=== PATIENT | female | born 1980 | race Caucasian/White ===

== ENCOUNTER 2020-02-20 09:44 | Outpatient (REF) | payer MEDICAID, SELFPAY ==
[2020-02-20 11:32] LABS: Estimated Average Glucose 131 mg/dL; Hemoglobin A1c % 6.2 %
[2020-02-20 11:50] LABS: Alanine Aminotransferase 106 U/L (0-31); Albumin Level 3.8 g/dL (3.5-5.0); Alkaline Phosphatase 93 U/L (39-117); Anion Gap 12 (12-20); Aspartate Amino Transferase 114 U/L (5-31); Bilirubin Total 0.7 mg/dL (0.0-1.0); Blood Urea Nitrogen 13 mg/dL (9-16); Calcium 8.6 mg/dL (8.4-10.2); Carbon Dioxide 28 mmol/L (22-29); Chloride 102 mmol/L (96-108); Cholesterol 135 mg/dL; Estimated Glomerular Filt Rate > 60; Glucose Random 152 mg/dL (60-115); HDL Cholesterol 35 mg/dL; LDL Cholesterol Calculated 80 mg/dl; Potassium 4.2 mmol/l (3.3-5.1); Sodium 138 mmol/L (135-145); Total Protein 7.4 g/dL (6.5-8.0); Triglycerides 100 mg/dL
[2020-02-20 11:52] LABS: Creatinine Urine 145.59 mg/dL; Microalbum/Creatinine Ratio Ur 4.8 ug/mg cr
[2020-02-20 12:01] LABS: HBS Num1 0.96 mIU/mL (0-7.99); ~HepC Num1 0.17 S/CO (0.00-0.79); ~Hepatitis B Surface Antibody NONREACTIVE (Nonreactive); ~Hepatitis C Antibody Nonreactive (Nonreactive)
[2020-02-20 12:40] LABS: Hepatitis B Core Antibody Nonreactive (Nonreactive); Hepatitis B Surface Antigen Negative (Negative)
[2020-02-22 08:54] LABS: Hepatitis A Antibody IgM 0.24 Index (0-0.79); ~Hepatitis A Antibody IgM Nonreactive (Nonreactive)
== END 2020-02-20 09:45 | disposition home or self-care (01) ==
LOC: HO.LAB 09:44
PROVIDERS: PCP Internal Medicine; Visit Provider Internal Medicine
DX: E03.8 Other specified hypothyroidism (principal); E78.00 Pure hypercholesterolemia, unspecified; R74.01 Elevation of levels of liver transaminase levels
CPT/HCPCS: 36415; 80053; 80061; 82043; 83036; 86704; 86706; 86709; 86803; 87340

== ENCOUNTER 2020-04-13 20:55 | Emergency (ER) | payer MEDICAID, SELFPAY ==
--- NOTE | 2020-04-13 | XR_ITS ---
EXAMINATION: XR CHEST CLINICAL INFORMATION: Chest pain, lump right lateral chest COMPARISON: 04/10/2019 TECHNIQUE: 2 views of the chest were obtained. FINDINGS: No significant abnormality is noted involving the heart, lungs, mediastinum, bony thorax or soft tissues. XR/XR chest 2V IMPRESSION: Unremarkable examination.
[2020-04-13 21:04] VITALS: BP 113/62; PULSE 89; RESP 16; TEMP 36.4; O2SAT 97; BMI 34.7
--- NOTE | 2020-04-13 22:15 | ED.GENADULT ---
HPI - General Adult General Chief complaint: General Medical Stated complaint: Lump Time Seen by Provider: 04/13/20 21:59 Source: patient Mode of arrival: ambulatory Limitations: no limitations History of Present Illness HPI narrative: This is a 39-year-old female with out significant past medical history who presents with 1 week of right lower chest wall lump and pain that is exacerbated with movement but denies any trauma to the area as well as denying any fevers, chills, cough, shortness of breath, chest pain / palpitations, nausea, vomiting, diarrhea, urinary pain/ burning / frequency. However, patient states that she is currently undergoing antibiotic treatment for a UTI but denies any back pain. She does states that she was doing quite a bit of mopping at her house approximately 1 week ago and has tried [id number] Tylenol, ibuprofen, as well as a lidocaine patch without improvement of symptoms. Related Data Allergies Allergy/AdvReac Type Severity Reaction Status Date / Time acetaminophen [Percocet] Allergy Unknown hives Verified 04/13/20 21:03 oxycodone [Percocet] Allergy Unknown hives Verified 04/13/20 21:03 From PERCOCET Allergy Mild N/V Uncoded 02/02/20 15:58 BCP Allergy Unknown headache Uncoded 01/09/20 00:00 Review of Systems Review of Systems: pertinent positives and negatives as stated in HPI 10 point review of systems otherwise negative. PMFSH Past Medical History Source: nursing notes reviewed Medical History Hypertension Pre-diabetes Surgical History H/O: hysterectomy Social History Social History Smoking Status: Current every day smoker Use of substances other than those prescribed or required for medical reasons: No Advance Directives: No Advance Directives Information Provided: Yes Physical Exam Vital Signs: Vital Signs: Last Vital Signs Temp 97.6 F 04/13/20 21:04 Pulse 89 04/13/20 21:04 Resp 16 04/13/20 21:04 BP 113/62 04/13/20 21:04 Pulse Ox 97 04/13/20 21:04 Body Mass Index 34.7 VITAL SIGNS: Reviewed. GENERAL: Well developed, well nourished, in no acute distress. HEAD: Normocephalic/atraumatic, EYES: PERRLA, EOMI intact without pain, no nystagmus/pallor/icterus noted EARS: Ext canals without abnormality, TMs non-bulging and non-erythematous NOSE: Nares patent bilateral OROPHARYNX: no oral lesions noted, posterior pharynx clear and non-erythematous without noted tonsillar enlargement/erythema/exudates NECK: Supple, no adenopathy LUNGS: Normal breath sounds. No adventitious sounds or accessory muscle use. SpO2<97> CHEST WALL: no erythema, no induration, no palpable lump, no crepitus, mild tenderness to palpation over anterior mid-axillary line at#10/#11 ribs CARDIOVASCULAR: Regular rate and rhythm without noted murmurs, no JVD or lower extremity edema. ABDOMEN: Soft, non-tender, non-distended with bowel sounds. No rigidity. No guarding. No palpable masses or hernias noted MUSCULOSKELETAL: No tenderness, deformities, or effusions noted on gross inspection. EXTREMITIES: No cyanosis, clubbing or edema. SKIN: Inspection of the skin reveals no rashes, ulcerations, jaundice, pallor, or petechiae. NEUROLOGIC: Alert and oriented x 4. Strength and sensation to light touch were grossly intact x 4. Course Course Course Narrative: This is a 39-year-old female with history and clinical presentation consistent with muscle strain and doubt pneumonia, hepatobiliary, or renal etiologies. Review of chest x-ray and urinalysis are negative for any acute findings. Patient had good improvement of discomfort with the combination of analgesics and will be discharged home in stable condition. Medical Decision Making Lab Data Labs: Lab Results 04/13/20 Range/Units 22:22 Urine Color YELLOW Urine Appearance CLEAR Urine pH 5.5 (5.0-8.0) Ur Specific [place] >= 1.030 H (1.005-1.025) Urine Protein NEG (NEG-TRACE) MG/DL Urine Glucose (UA) 100 H (NEG) MG/DL Urine Ketones NEG (NEG) MG/DL Urine Blood NEG (NEG) Urine Nitrite NEG (NEG) Ur Leukocyte Esterase NEG (NEG) Discharge Plan Discharge Clinical Impression: Muscle strain of chest wall Qualifiers: Encounter type: initial encounter Qualified Code(s): S29.011A - Strain of muscle and tendon of front wall of thorax, initial encounter Patient Disposition: Home, Self-Care Instructions: Muscle Strain (ED) Additional Instructions: 1. Tylenol (if not allergic ) 1000 mg, orally, every 6 hours as needed for pain control. Do not exceed 4000 mg within 24 hours. 2. Ibuprofen 400 mg, orally with milk or food, every 6 hours as needed for pain control. 3. May try ice packs or heat in an attempt to determine which for work best for you and then continue with this for the next 2 weeks 3 to 4 times a day as possible. 4. please follow-up with your primary care provider on Thursday for further evaluation and management. The patient and/or family acknowledge understanding of results (as applicable), diagnosis, treatment plan, need for follow up, and symptoms that should prompt a return to the emergency room. Referrals: Alma Narvaez MD [Primary Care Provider] - 2 days (For re-evaluation and management of suspected right chest wall muscle strain) Print Language: Hebrew
[2020-04-13 22:30] LABS: Glucose Urine UA 100 MG/DL (NEG); Leukocyte Esterase Urine NEG (NEG); Nitrite Urine NEG (NEG); PH 5.5 (5.0-8.0); Specific Gravity - Urine >= 1.030 (1.005-1.025); Urine Blood NEG (NEG); Urine Ketones NEG (NEG); Urine Protein NEG (NEG-TRACE)
[2020-04-13 22:31] LABS: Appearance Urine CLEAR; Color Urine YELLOW
[2020-04-13] MEDS: Ketorolac Tromethamine 15 MG/ML VIAL IM (22:34)
== END 2020-04-13 23:04 | disposition home or self-care (01) ==
PROVIDERS: Emergency Provider Student in an Organized Health Care Education/Training Program; PCP Internal Medicine
DX: S29.011A Strain of muscle and tendon of front wall of thorax, initial encounter (principal); I10 Essential (primary) hypertension; X58.XXXA Exposure to other specified factors, initial encounter; Y93.9 Activity, unspecified; Y92.9 Unspecified place or not applicable; Y99.9 Unspecified external cause status; F17.200 Nicotine dependence, unspecified, uncomplicated; Z71.6 Tobacco abuse counseling; Z79.899 Other long term (current) drug therapy
CPT/HCPCS: 71046; 81003; 96372; 99283; 99284; J1885

== ENCOUNTER 2020-04-19 10:47 | Outpatient (REF) | payer MEDICAID, SELFPAY ==
[2020-04-19 11:45] LABS: MANUAL DIFF FLAG NO
[2020-04-19 11:59] LABS: Basophils Percent Auto 0.3 % (0-2); Eosinophils Percent Auto 0.5 % (0-4); Hematocrit 38.2 % (37-47); Hemoglobin 12.3 g/dl (12.0-16.0); Imm Gran Abs Auto 0.01 X10*3/uL (0.00-0.03); Imm Gran Pct Auto 0.2 % (0.0-0.4); Lymphocytes Absolute Auto 2.4 X10*3/uL (1.2-4.9); Lymphocytes Percent Auto 38.9 % (20-40); Mean Corpuscular HGB Conc 32.2 g/dl (31.0-35.0); Mean Corpuscular Hemoglobin 29.8 pg (27.0-33.0); Mean Corpuscular Volume 92.5 fL (80-98); Mean Platelet Volume 9.7 fL (9.4-12.3); Monocytes Absolute Auto 0.4 X10*3/uL (0.1-1.2); Monocytes Percent Auto 7.1 % (2-11); Neutrophils Absolute Auto 3.3 X10*3/uL (2.0-8.3); Platelet Count 250 X10*3/uL (160-400); Red Blood Count 4.13 X10*6/uL (4.20-5.50); Red Cell Distribution Width 12.6 % (11.0-16.0); White Blood Count 6.2 X10*3/uL (4.8-10.8)
[2020-04-19 14:02] LABS: Alanine Aminotransferase 123 U/L (0-31); Alkaline Phosphatase 91 U/L (39-117); Anion Gap 11 (12-20); Aspartate Amino Transferase 128 U/L (5-31); Bilirubin Total 0.6 mg/dL (0.0-1.0); Blood Urea Nitrogen 12 mg/dL (9-16); C Reactive Protein 1.85 mg/dL (< or = 0.50); Carbon Dioxide 29 mmol/L (22-29); Chloride 103 mmol/L (96-108); Estimated Glomerular Filt Rate > 60; Gamma Glutamyl Transpeptidase 61 U/L (7-33); Glucose Random 167 mg/dL (60-115); Potassium 4.3 mmol/l (3.3-5.1); Sodium 139 mmol/L (135-145); Total Protein 7.6 g/dL (6.5-8.0)
[2020-04-19 14:09] LABS: TSH reflex Free T4 2.59 mIU/mL (0.32-4.0); Vitamin D 25-OH Total 19.4 ng/mL (>30)
[2020-04-20 04:10] LABS: Estimated Average Glucose 143 mg/dL; Hemoglobin A1c % 6.6 %
== END 2020-04-19 10:48 | disposition home or self-care (01) ==
LOC: HO.LAB 10:47
PROVIDERS: PCP Internal Medicine; Visit Provider Internal Medicine Gastroenterology
DX: K76.0 Fatty (change of) liver, not elsewhere classified (principal); R10.9 Unspecified abdominal pain
CPT/HCPCS: 36415; 80053; 82306; 82977; 83036; 84443; 85025; 86140

== ENCOUNTER 2020-05-07 11:13 | Outpatient (REF) | payer MEDICAID, SELFPAY ==
--- NOTE | 2020-05-07 | US_ITS ---
EXAMINATION: US PELVIS COMPLETE US TRANSVAGINAL CLINICAL INFORMATION: Left adnexal cyst. COMPARISON: CT abdomen and pelvis 03/27/2020 from [facility] TECHNIQUE: Transabdominal and transvaginal imaging of pelvis is performed. FINDINGS: The uterus has been surgically removed. The right ovary is not seen. The left ovary measures 3.6 x 2.2 x 2.5 cm and volume 10.4 mL. There is anechoic cyst measuring 2.5 x 2.1 x 2.5 cm. The same cyst on a previous CT pelvis exam measured 3.3 cm. It has slightly improved. There are significant small and large bowel loops seen in the pelvis following hysterectomy. US/US pelvic complete IMPRESSION: Small left ovarian cyst measuring 2.[address] cm[address], it measured 3.0 cm. It has slightly decreased in size. The uterus has been removed. The right ovary is not seen.
--- NOTE | 2020-05-07 | US_ITS ---
EXAMINATION: US PELVIS COMPLETE US TRANSVAGINAL CLINICAL INFORMATION: Left adnexal cyst. COMPARISON: CT abdomen and pelvis 03/27/2020 from [facility] TECHNIQUE: Transabdominal and transvaginal imaging of pelvis is performed. FINDINGS: The uterus has been surgically removed. The right ovary is not seen. The left ovary measures 3.6 x 2.2 x 2.5 cm and volume 10.4 mL. There is anechoic cyst measuring 2.5 x 2.1 x 2.5 cm. The same cyst on a previous CT pelvis exam measured 3.3 cm. It has slightly improved. There are significant small and large bowel loops seen in the pelvis following hysterectomy. US/US transvaginal IMPRESSION: Small left ovarian cyst measuring 2.[address], it measured 3.0 cm. It has slightly decreased in size. The uterus has been removed. The right ovary is not seen.
== END 2020-05-07 11:14 | disposition home or self-care (01) ==
LOC: HO.US 11:13
PROVIDERS: PCP Internal Medicine; Visit Provider Internal Medicine
DX: N83.202 Unspecified ovarian cyst, left side (principal)
CPT/HCPCS: 76830; 76856

== ENCOUNTER → 2020-05-21 11:16 | Outpatient (BNVA) | payer MEDICAID, SELFPAY | PROVIDERS: PCP Internal Medicine; Referring Provider Internal Medicine; Visit Provider Internal Medicine Gastroenterology | DX: Z76.89 Persons encountering health services in other specified circumstances (principal) ==

== ENCOUNTER → 2020-05-29 07:49 | Outpatient (REF) | payer MEDICAID, SELFPAY ==
--- NOTE | 2020-05-29 07:52 | NM_ITS ---
EXAMINATION: BILIARY TRACT IMAGING STUDY CLINICAL INFORMATION: Right upper quadrant pain. The patient is status post cholecystectomy. COMPARISON: The previous study dated 06/24/2012 is available for comparison. Abdominal ultrasound dated 06/14/2019 is available for comparison.. TECHNIQUE: Serial gamma scintillation camera images were obtained over the abdomen for a total observation period of 60 minutes following the intravenous administration of 5.0 mCi Tc-99m Mebrofenin. FINDINGS: There is good concentration of activity in the liver by 5 minutes post injection. Biliary activity is visualized by 10 minutes. Small bowel is well visualized by 20 minutes. The gallbladder is not visualized at any time during the study. At the end of the study there is good clearance of activity from the liver and visualization of diffuse small bowel activity. There is no abnormal activity outside the visualized biliary tree or small bowel to suggest extravasation. There is no prominence of the common bile duct or intrahepatic biliary ducts. NM/NM hepatobiliary wo pharm IMPRESSION: Normal biliary scan status post cholecystectomy. The common bile duct is patent with no suggestion of common bile duct obstruction. There is no evidence of a biliary leak.
== END ==
LOC: HO.NUCMED 07:49
PROVIDERS: PCP Internal Medicine; Visit Provider Internal Medicine Gastroenterology
DX: R10.11 Right upper quadrant pain (principal); K76.0 Fatty (change of) liver, not elsewhere classified
CPT/HCPCS: 78226; A9537

== ENCOUNTER 2020-06-04 14:00 | Outpatient (REF) | payer MEDICAID, SELFPAY | END 2020-06-04 14:01 | disposition home or self-care (01) | LOC: HO.LAB 14:00 | PROVIDERS: Visit Provider Internal Medicine | DX: Z20.822 Contact with and (suspected) exposure to COVID-19 (principal) | CPT/HCPCS: 36415; C9803; U0003 ==

== ENCOUNTER 2020-06-27 09:06 | Outpatient (REF) | payer MEDICAID, SELFPAY ==
--- NOTE | ~2020-06-27 | US_ITS ---
EXAMINATION: US COMPLETE ABDOMEN WITH LIVER ELASTOGRAPHY CLINICAL INFORMATION: Fatty liver COMPARISON: Previous ultrasounds most recent May 2019 TECHNIQUE: Real-time imaging of the abdominal viscera. Noninvasive ultrasound liver fibrosis assessment is performed using Heath ElastPQ point quantification shear wave elastography (pSWE) with a 5 MHz transducer. Multiple elastography samples are obtained. FINDINGS: PANCREAS: Normal. ABDOMINAL AORTA: The proximal, middle, and distal aortic segments are normal in caliber. INFERIOR VENA CAVA: Visualized portions are normal. LIVER: Liver echotexture is increased. The liver is enlarged. The liver demonstrates normal contour and echogenicity. No focal lesion or intrahepatic biliary duct dilatation. The right lobe measures 19 cm in length. The left lobe measures 13 cm in length. Portal flow is normal/hepatopedal Shear wave liver elastography median stiffness is 1.8 m/s (reference: normal median stiffness is 1.3 m/s or less). IQR/median stiffness to assess sampling precision is 0.16 (reference: optimal IQR/median stiffness is 0.15 or less). This demonstrates a significant change from previous exam when liver stiffness measured 1.3 m/s on May 2019. GALLBLADDER: Surgically removed. COMMON BILE DUCT: Normal in caliber measuring 0.6 cm in diameter. RIGHT KIDNEY: Normal. No hydronephrosis. No renal calculi or focal parenchymal lesions. The kidney measures 10.6 cm in maximum dimension. LEFT KIDNEY: Normal. No hydronephrosis. No renal calculi or focal parenchymal lesions. The kidney measures 12 cm in maximum dimension. SPLEEN: Normal. The spleen measures 8.3 cm in maximum dimension. FREE FLUID: None. US/US abdomen comp w elastography IMPRESSION: 1. Impression: Enlarged echogenic liver. 2. Liver elastography: Elevated liver stiffness suggestive of compensated advanced chronic liver disease.
== END 2020-06-27 09:07 | disposition home or self-care (01) ==
LOC: HO.US 09:06
PROVIDERS: Visit Provider Internal Medicine Gastroenterology
DX: K76.0 Fatty (change of) liver, not elsewhere classified (principal); E13.9 Other specified diabetes mellitus without complications
CPT/HCPCS: 76705; 76981

== ENCOUNTER → 2020-08-07 12:59 | Outpatient (BNVA) | payer MEDICAID, SELFPAY | PROVIDERS: PCP Internal Medicine; Visit Provider Dietitian, Registered ==

== ENCOUNTER → 2020-08-24 09:14 | Outpatient (BNVA) | payer MEDICAID, SELFPAY | PROVIDERS: Visit Provider Internal Medicine Gastroenterology ==

== ENCOUNTER 2020-09-03 08:24 | Outpatient (REF) | payer MEDICAID, SELFPAY ==
[2020-09-03 09:37] LABS: MANUAL DIFF FLAG NO
[2020-09-03 09:43] LABS: Basophils Percent Auto 0.3 % (0-2); Eosinophils Percent Auto 0.5 % (0-4); Hematocrit 38.1 % (37-47); Hemoglobin 12.1 g/dl (12.0-16.0); Imm Gran Abs Auto 0.01 X10*3/uL (0.00-0.03); Imm Gran Pct Auto 0.2 % (0.0-0.4); Lymphocytes Absolute Auto 2.4 X10*3/uL (1.2-4.9); Lymphocytes Percent Auto 38.9 % (20-40); Mean Corpuscular HGB Conc 31.8 g/dl (31.0-35.0); Mean Corpuscular Hemoglobin 29.6 pg (27.0-33.0); Mean Corpuscular Volume 93.2 fL (80-98); Mean Platelet Volume 9.6 fL (9.4-12.3); Monocytes Absolute Auto 0.4 X10*3/uL (0.1-1.2); Monocytes Percent Auto 6.4 % (2-11); Neutrophils Absolute Auto 3.3 X10*3/uL (2.0-8.3); Neutrophils Percent Auto 53.7 % (45-73); Platelet Count 230 X10*3/uL (160-400); Red Blood Count 4.09 X10*6/uL (4.20-5.50); Red Cell Distribution Width 12.8 % (11.0-16.0); White Blood Count 6.1 X10*3/uL (4.8-10.8)
[2020-09-03 10:07] LABS: Alanine Aminotransferase 153 U/L (0-31); Albumin Level 3.9 g/dL (3.5-5.0); Alkaline Phosphatase 102 U/L (39-117); Anion Gap 14 (12-20); Aspartate Amino Transferase 126 U/L (5-31); Bilirubin Total 0.9 mg/dL (0.0-1.0); Blood Urea Nitrogen 12 mg/dL (9-16); C Reactive Protein 1.81 mg/dL (< or = 0.50); Calcium 8.8 mg/dL (8.4-10.2); Carbon Dioxide 26 mmol/L (22-29); Chloride 104 mmol/L (96-108); Cholesterol 140 mg/dL; Estimated Glomerular Filt Rate > 60; Glucose Random 203 mg/dL (60-115); HDL Cholesterol 34 mg/dL; LDL Cholesterol Calculated 89 mg/dl; Potassium 4.5 mmol/L (3.3-5.1); Sodium 139 mmol/L (135-145); Total Protein 7.5 g/dL (6.5-8.0); Triglycerides 87 mg/dL
[2020-09-03 10:08] LABS: Estimated Average Glucose 180 mg/dL; Hemoglobin A1c % 7.9 %
[2020-09-03 10:14] LABS: HBS Num1 0.54 mIU/mL (0-7.99); HBc Num1 0.11 S/CO (0.00-0.79); Hepatitis B Core Antibody Nonreactive (Nonreactive); ~Hepatitis B Surface Antibody NONREACTIVE (Nonreactive); ~Hepatitis C Antibody Nonreactive (Nonreactive)
[2020-09-03 10:16] LABS: HBsAGNum1 0.25 S/CO (0.00-0.99); Hepatitis B Surface Antigen Negative (Negative)
[2020-09-03 10:19] LABS: Gamma Glutamyl Transpeptidase 77 U/L (7-33)
[2020-09-03 10:21] LABS: Ferritin 212 ng/mL (10-250); TSH reflex Free T4 1.91 uIU/mL (0.32-4.0)
[2020-09-05 08:20] LABS: Hepatitis A Antibody IgM 0.19 Index (0-0.79); ~Hepatitis A Antibody IgM Nonreactive (Nonreactive)
== END 2020-09-03 08:25 | disposition home or self-care (01) ==
LOC: HO.LAB 08:24
PROVIDERS: Absent Provider Internal Medicine; PCP Internal Medicine; Visit Provider Internal Medicine Gastroenterology
DX: G89.0 Central pain syndrome (principal); K76.0 Fatty (change of) liver, not elsewhere classified; E13.9 Other specified diabetes mellitus without complications; E78.2 Mixed hyperlipidemia; R10.12 Left upper quadrant pain; R74.01 Elevation of levels of liver transaminase levels
CPT/HCPCS: 36415; 80053; 80061; 82728; 82977; 83036; 84443; 85025; 86140; 86704; 86706; 86709; 86803; 87340

== ENCOUNTER 2020-10-09 08:39 | Outpatient (REF) | payer MEDICAID, SELFPAY ==
[2020-10-09 10:27] LABS: Alanine Aminotransferase 128 U/L (0-31); Albumin Level 3.9 g/dL (3.5-5.0); Alkaline Phosphatase 93 U/L (39-117); Anion Gap 12 (12-20); Aspartate Amino Transferase 91 U/L (5-31); Bilirubin Total 0.9 mg/dL (0.0-1.0); Blood Urea Nitrogen 13 mg/dL (9-16); Carbon Dioxide 25 mmol/L (22-29); Chloride 103 mmol/L (96-108); Cholesterol 128 mg/dL; Estimated Glomerular Filt Rate > 60; Glucose Random 193 mg/dL (60-115); HDL Cholesterol 35 mg/dL; LDL Cholesterol Calculated 78 mg/dl; Potassium 4.3 mmol/L (3.3-5.1); Sodium 136 mmol/L (135-145); Total Protein 7.6 g/dL (6.5-8.0); Triglycerides 77 mg/dL
[2020-10-09 10:29] LABS: Estimated Average Glucose 183 mg/dL
== END 2020-10-09 08:40 | disposition home or self-care (01) ==
LOC: HO.LAB 08:39
PROVIDERS: PCP Internal Medicine; Visit Provider Internal Medicine
DX: E11.9 Type 2 diabetes mellitus without complications (principal); E78.2 Mixed hyperlipidemia; R10.12 Left upper quadrant pain; R74.01 Elevation of levels of liver transaminase levels
CPT/HCPCS: 36415; 80053; 80061; 83036

== ENCOUNTER → 2020-10-17 08:45 | Outpatient (BNVA) | payer MEDICAID, SELFPAY | PROVIDERS: PCP Internal Medicine; Visit Provider Nurse Practitioner Family ==

== ENCOUNTER 2020-10-20 07:06 | Emergency (ER) | payer MEDICAID, SELFPAY ==
--- NOTE | ~2020-10-20 | CT_ITS ---
EXAMINATION: CT CERVICAL SPINE WITHOUT CONTRAST CLINICAL INFORMATION: Pain going down the left arm. COMPARISON: None TECHNIQUE: 3 mm thin axial and reformatted 2 mm thin sagittal and coronal images of cervical spine were obtained without contrast. This CT examination was performed using dose optimization techniques as appropriate, variously including the following: *Automated exposure control *Adjustment of mA and/or kV according to patient size (this includes techniques or standardized protocols for targeted exams where dose is matched to indication/reason for exam; i.e. extremities or head) *Use of iterative reconstruction technique DLP: 485 mGy-cm FINDINGS: There is maintained cervical lordosis. The vertebral heights, alignment and disc heights are normal. There is no visible acute fracture, dislocation are subluxation seen. The craniovertebral junction and the C1-C2 alignment is normal. The C2-C3, C3-C4 and C4-C5 disc levels are unremarkable. At C5-C6 disc level with bilateral facet joint and uncovertebral hypertrophic changes resulting in mild left neural foraminal narrowing. The C6-C7 and C7-T1 disc level appears unremarkable. The prevertebral and paravertebral soft tissues are normal. CT/CT cervical spine wo con IMPRESSION: Mild left neural foraminal narrowing at C5-C6 disc level from uncovertebral and facet joint arthropathy at C5-C6 disc level. There is no visible acute fracture, dislocation or subluxation seen. No bony erosive changes seen.
--- NOTE | ~2020-10-20 | US_ITS ---
EXAMINATION: US VENOUS WITH DOPPLER UPPER EXTREMITY, LEFT CLINICAL INFORMATION: Arm pain and swelling COMPARISON: None TECHNIQUE: Ultrasound of the upper extremity is performed using compression sonography and color and pulse Doppler flow with assessment of augmentation of flow. There is also imaging and Doppler assessment of the jugular and subclavian veins. Spectral analysis with color-flow imaging is performed. FINDINGS: Respiratory variation, normal compression, and augmented flow are noted throughout the upper extremity including the axillary, brachial, cubital, and radial and ulnar veins. There is normal flow in the internal jugular and subclavian veins. There is no visible deep or superficial thrombophlebitis. If the patient's symptoms progress, a followup ultrasound in 5 -7 days might be of value to exclude proximal propagation from a nonvisualized distal arm vein. US/US venous duplex UE LT IMPRESSION: No DVT demonstrated in the left upper extremity
--- NOTE | ~2020-10-20 | XR_ITS ---
EXAMINATION: XR SHOULDER, LEFT CLINICAL INFORMATION: Pain. COMPARISON: None TECHNIQUE: AP external rotation, Grashey, scapular Y, and axillary views of the left shoulder. FINDINGS: The bones and soft tissues are normal. No fracture. Glenohumeral and acromioclavicular alignment is anatomic with normal joint space. No abnormal soft tissue calcifications. XR/XR shoulder LT min 2V IMPRESSION: Normal left shoulder.
[2020-10-20 07:19] VITALS: BP 140/83; PULSE 100; RESP 15; TEMP 36.6; O2SAT 100; BMI 40.3
--- NOTE | 2020-10-20 07:30 | ED_ITS ---
HPI - Extremity Problem General Chief complaint: Extremity Injury, Upper Stated complaint: pt states whole arm hurts after covid shot Time Seen by Provider: 10/20/20 07:17 History of Present Illness HPI Narrative: Patient is a 40-year-old female presents today with having left upper extremity pain and swelling since getting a coronavirus vaccine 3 weeks ago. No fever no chills. No shortness of breath. No chest pain. No diaphoresis. Patient complained pain is very sharp. It is worse with movement. MD Complaint: extremity pain Related Data Home Medications Medication Instructions Recorded Confirmed linaclotide 290 mcg capsule 290 mcg PO DAILY 05/21/20 08/24/20 metformin 1,000 mg tablet 1,000 mg PO DAILY 05/21/20 08/24/20 pentosan polysulfate sodium 100 mg 100 mg PO TID 05/21/20 08/24/20 capsule propranolol 120 mg capsule,24 120 mg PO DAILY 05/21/20 08/24/20 hr,extended release venlafaxine 75 mg capsule,extended 75 mg PO DAILY 05/21/20 08/24/20 release 24 hr Previous Rx's Medication Instructions Recorded lidocaine-prilocaine 2.5 %-2.5 % 1 appl TOPICAL BID 30 Days #30 g 04/19/20 topical cream famotidine 40 mg tablet 40 mg PO BEDTIME 30 Days #30 tab 06/12/20 cholecalciferol (vitamin D3) 50 2,000 unit PO DAILY 30 Days #30 cap 07/20/20 mcg (2,000 unit) capsule magnesium oxide 400 mg PO BID 30 Days #60 tab 08/24/20 docusate sodium 100 mg capsule 100 mg PO BEDTIME #30 cap 10/17/20 methylcellulose (laxative) 500 mg 500 mg PO DAILY #30 tab 10/17/20 tablet ibuprofen 400 mg PO Q6H PRN #20 tab 10/20/20 Allergies Allergy/AdvReac Type Severity Reaction Status Date / Time acetaminophen [Percocet] Allergy Unknown hives Verified 10/17/20 08:46 oxycodone [Percocet] Allergy Unknown hives Verified 10/17/20 08:46 BCP Allergy Unknown headache Uncoded 08/24/20 09:15 Review of Systems Review of Systems: Constitutional: No Weight loss, No Fever, No Chills, No Night Sweats, No Fatigue, No Malaise ENT/Mouth: No Hearing loss, No Ear Pain, No Nasal Congestion, No Sinus Pain, No Hoarseness, No sore throat, No Rhinorrhea, No Swallowing Difficulty Eyes: No Eye Pain, No Swelling, No Redness, No Foreign Body, No Discharge, No Vision Changes Cardiovascular: No Chest Pain, No SOB, No Dyspnea on Exertion, No Orthopnea, No Edema, No Palpitations Respiratory: No Cough, No Sputum, No Wheezing, No Smoke Exposure, No Dyspnea Gastrointestinal: No Nausea, No Vomiting, No Diarrhea, No Constipation, No abdominal Pain, No Hematochezia, No Melena Genitourinary: no irregular bleeding, No Dysuria, No Urinary Frequency, No Hematuria, No Urinary Incontinence, No Urgency, No Flank Pain, No Urinary Flow Changes, No Hesitancy Musculoskeletal: No joint pain, No Myalgias, No Joint Swelling Skin: No Skin Lesions, No rash Neuro: No Weakness, No Numbness, No Paresthesias, No Loss of Consciousness, No Dizziness, No Headache Psych: No Anxiety/Panic, No Depression, No SI/HI/AH/VH, No Social Issues, Heme/Lymph: No Bruising, No Bleeding,No Lymphadenopathy Endocrine: No Polyuria, No Polydipsia, No Temperature Intolerance PMFSH Past Medical History Attestation statement: The following information was validated with the patient. Medical History Diabetes 1.5, managed as type 2 GERD (gastroesophageal reflux disease) Hepatic steatosis Hypertension IBS (irritable colon syndrome) Pre-diabetes Thalamic pain syndrome Surgical History H/O: hysterectomy (~2019) History of esophagogastroduodenoscopy (EGD) (~2018) Hx of colonoscopy (~2018) Family History Family History Father Diabetes FH: stomach cancer FH: cancer FHx: hypercholesterolemia Cancer Brother FH: stomach cancer Cancer Mother FH: depression FH: diabetes mellitus FH: cancer Maternal Uncle Cancer FH: cancer Sister Cancer Paternal Grandfather Family history of colon cancer Social History Social History Household Members: Spouse Alcohol intake: current Alcohol intake frequency: does not drink Advance Directives: No Advance Directives Information Provided: No Current occupational status: unemployed Physical Exam Vital Signs: Vital Signs: Last Vital Signs Temp 98.6 F 10/20/20 09:09 Pulse 80 10/20/20 09:09 Resp 18 10/20/20 09:09 BP 140/86 H 10/20/20 09:09 Pulse Ox 98 10/20/20 09:09 Body Mass Index 40.3 Appearance: Alert. Oriented X3. No acute distress. Eyes: Pupils equal, round and reactive to light. ENT: Pharynx normal. Neck: Normal inspection. Neck supple. No lymph nodes noted. No crepitus CVS: Normal heart rate and rhythm. Pulses normal. Normal S1 and S2 Respiratory: No respiratory distress. Breath sounds normal. No Wheezing. No rales Abdomen: Soft and nontender. No rigidity. No distention. good BS x4 Skin: Skin warm and dry. Normal skin color. Normal skin turgor. Extremities: No lower extremity edema. Neurovascular intact to all extremities. No Lacerations. No Rash Neuro: Oriented X 3. No motor deficit. No sensory deficit. Moving all extermities. No slurred speech MDM - Extremity (Nontraumatic) MDM Narrative Medical decision making narrative: X-ray showed no evidence of fracture. Patient's C-spine showed no evidence of fracture malalignment. Question cervical radiculopathy causing patient's symptoms. Patient's ultrasound showed no evidence of DVT. Electrolytes unremarkable. There is no chest pain or shortness of breath. Will have patient follow-up outpatient basis with her primary physician. Motrin for pain. In stable condition. Lab Data Result diagrams: 10/20/20 07:57 10/20/20 07:57 Labs: Lab Results 10/20/20 10/20/20 10/20/20 Range/Units 07:57 07:57 07:57 WBC 6.1 (4.8-10.8) X10*3/uL RBC 3.93 L (4.20-5.50) X10*6/uL Hgb 11.8 L (12.0-16.0) g/dl Hct 36.7 L (37-47) % MCV 93.4 (80-98) fL MCH 30.0 (27.0-33.0) pg MCHC 32.2 (31.0-35.0) g/dl RDW 12.5 (11.0-16.0) % Plt Count 207 (160-400) X10*3/uL MPV 9.4 (9.4-12.3) fL Immature Gran % (Auto) 0.2 (0.0-0.4) % Neut % (Auto) 56.7 (45-73) % Lymph % (Auto) 36.0 (20-40) % [place] % (Auto) 5.9 (2-11) % Eos % (Auto) 1.0 (0-4) % Baso % (Auto) 0.2 (0-2) % Lymph # (Auto) 2.2 (1.2-4.9) X10*3/uL [place] # (Auto) 0.4 (0.1-1.2) X10*3/uL Eos # (Auto) 0.1 (0.0-0.4) X10*3/uL Baso # (Auto) 0.0 (0.0-0.2) X10*3/uL Abs Immat Gran (auto) 0.01 (0.00-0.03) X10*3/uL Absolute Neuts (auto) 3.5 (2.0-8.3) X10*3/uL Absolute Nucleated RBC 0.000 (0.0-0.012) X10*3/uL Nucleated RBC % (auto) 0.0 (0.0-0.2) /100WBC PT 13.0 (10.8-13.0) SEC INR 1.1 (0.9-1.1) Sodium 137 (135-145) mmol/L Potassium 4.3 (3.3-5.1) mmol/L Chloride 104 (96-108) mmol/L Carbon Dioxide 23 (22-29) mmol/L Anion Gap 14 (12-20) BUN 12 (9-16) mg/dL Creatinine 0.72 (0.5-1.4) mg/dL Estim Creat Clear Calc 113.6 Estimated GFR > 60 Random Glucose 210 H (60-115) mg/dL Calcium 8.9 (8.4-10.2) mg/dL Discharge Plan Discharge Clinical Impression: Cervical radiculopathy Patient Disposition: Home, Self-Care Instructions: Cervical Radiculopathy (ED) Prescriptions: New ibuprofen 400 mg tablet 400 mg PO Q6H PRN (Reason: pain) Qty: 20 RF: 0 No Action lidocaine-prilocaine 2.5-2.5 % cream 1 appl topical BID 30 Days Qty: 30 RF: 0 famotidine 40 mg tablet 40 mg PO BEDTIME 30 Days Qty: 30 RF: 4 cholecalciferol (vitamin D3) 50 mcg (2,000 unit) capsule 2,000 unit PO DAILY 30 Days Qty: 30 RF: 3 magnesium oxide 400 mg magnesium tablet 400 mg PO BID 30 Days Qty: 60 RF: 4 venlafaxine 75 mg capsule,extended release 24hr 75 mg PO DAILY RF: 0 propranolol [Inderal LA] 120 mg capsule,extended release 24 hr 120 mg PO DAILY RF: 0 Elmiron 100 mg capsule 100 mg PO TID RF: 0 Linzess 290 mcg capsule 290 mcg PO DAILY RF: 0 metformin 1,000 mg tablet 1,000 mg PO DAILY RF: 0 docusate sodium 100 mg capsule 100 mg PO BEDTIME Qty: 30 RF: 3 Citrucel 500 mg tablet 500 mg PO DAILY Qty: 30 RF: 2 Referrals: Alma Narvaez MD [Primary Care Provider] - 2 days
[2020-10-20 08:02] LABS: MANUAL DIFF FLAG NO
[2020-10-20 08:09] LABS: Basophils Percent Auto 0.2 % (0-2); Eosinophils Absolute Auto 0.1 X10*3/uL (0.0-0.4); Hematocrit 36.7 % (37-47); Hemoglobin 11.8 g/dl (12.0-16.0); Imm Gran Abs Auto 0.01 X10*3/uL (0.00-0.03); Imm Gran Pct Auto 0.2 % (0.0-0.4); Lymphocytes Absolute Auto 2.2 X10*3/uL (1.2-4.9); Mean Corpuscular HGB Conc 32.2 g/dl (31.0-35.0); Mean Corpuscular Volume 93.4 fL (80-98); Mean Platelet Volume 9.4 fL (9.4-12.3); Monocytes Absolute Auto 0.4 X10*3/uL (0.1-1.2); Monocytes Percent Auto 5.9 % (2-11); Neutrophils Absolute Auto 3.5 X10*3/uL (2.0-8.3); Neutrophils Percent Auto 56.7 % (45-73); Platelet Count 207 X10*3/uL (160-400); Red Blood Count 3.93 X10*6/uL (4.20-5.50); Red Cell Distribution Width 12.5 % (11.0-16.0); White Blood Count 6.1 X10*3/uL (4.8-10.8)
[2020-10-20 08:12] LABS: INTERNATIONAL NORM RATIO 1.1 (0.9-1.1)
[2020-10-20 08:27] LABS: Anion Gap 14 (12-20); Blood Urea Nitrogen 12 mg/dL (9-16); Calcium 8.9 mg/dL (8.4-10.2); Carbon Dioxide 23 mmol/L (22-29); Chloride 104 mmol/L (96-108); Creatinine Clr Calc Pharmacy 113.6; Estimated Glomerular Filt Rate > 60; Glucose Random 210 mg/dL (60-115); Potassium 4.3 mmol/L (3.3-5.1); Sodium 137 mmol/L (135-145)
[2020-10-20 09:09] VITALS: BP 140/86; PULSE 80; RESP 18; TEMP 37; O2SAT 98
== END 2020-10-20 09:40 | disposition home or self-care (01) ==
PROVIDERS: Emergency Provider Emergency Medicine Emergency Medical Services; PCP Internal Medicine
DX: M54.12 Radiculopathy, cervical region (principal); R10.12 Left upper quadrant pain; R60.0 Localized edema; I10 Essential (primary) hypertension; Z79.899 Other long term (current) drug therapy
CPT/HCPCS: 36415; 72125; 73030; 80048; 85025; 85610; 93971; 99283

== ENCOUNTER → 2020-10-22 09:40 | Outpatient (BNVA) | payer MEDICAID, SELFPAY | PROVIDERS: PCP Internal Medicine; Visit Provider Dietitian, Registered | DX: E13.9 Other specified diabetes mellitus without complications (principal); K76.0 Fatty (change of) liver, not elsewhere classified | CPT/HCPCS: 97803 ==

== ENCOUNTER → 2020-11-20 09:44 | Outpatient (BNVA) | payer MEDICAID, SELFPAY | PROVIDERS: Visit Provider Nurse Practitioner Family ==

== ENCOUNTER 2020-12-03 09:04 | Outpatient (REF) | payer MEDICAID, SELFPAY ==
[2020-12-03 10:22] LABS: Estimated Average Glucose 154 mg/dL
[2020-12-03 10:44] LABS: Alanine Aminotransferase 87 U/L (0-31); Alkaline Phosphatase 95 U/L (39-117); Anion Gap 12 (12-20); Aspartate Amino Transferase 60 U/L (5-31); Bilirubin Total 0.7 mg/dL (0.0-1.0); Blood Urea Nitrogen 15 mg/dL (9-16); Calcium 9.3 mg/dL (8.4-10.2); Carbon Dioxide 28 mmol/L (22-29); Chloride 102 mmol/L (96-108); Cholesterol 132 mg/dL; Estimated Glomerular Filt Rate > 60; Glucose Random 132 mg/dL (60-115); HDL Cholesterol 32 mg/dL; LDL Cholesterol Calculated 81 mg/dl; Potassium 4.4 mmol/L (3.3-5.1); Sodium 138 mmol/L (135-145); Total Protein 7.6 g/dL (6.5-8.0); Triglycerides 99 mg/dL
[2020-12-03 11:02] LABS: Creatinine Urine 123.27 mg/dL; Microalbumin Urine < 5.0 mg/L
== END 2020-12-03 09:05 | disposition home or self-care (01) ==
LOC: HO.LAB 09:04
PROVIDERS: PCP Internal Medicine; Visit Provider Internal Medicine
DX: E11.65 Type 2 diabetes mellitus with hyperglycemia (principal); M77.12 Lateral epicondylitis, left elbow; R74.01 Elevation of levels of liver transaminase levels; S46.012S Strain of muscle(s) and tendon(s) of the rotator cuff of left shoulder, sequela
CPT/HCPCS: 36415; 80053; 80061; 82043; 83036

== ENCOUNTER 2021-02-11 11:10 | Outpatient (REF) | payer MEDICAID, SELFPAY ==
[2021-02-11 12:31] LABS: Estimated Average Glucose 154 mg/dL
[2021-02-11 12:40] LABS: Alanine Aminotransferase 63 U/L (0-31); Albumin Level 3.7 g/dL (3.5-5.0); Alkaline Phosphatase 97 U/L (39-117); Anion Gap 12 (12-20); Aspartate Amino Transferase 37 U/L (5-31); Bilirubin Total 0.6 mg/dL (0.0-1.0); Blood Urea Nitrogen 9 mg/dL (9-16); Carbon Dioxide 27 mmol/L (22-29); Chloride 102 mmol/L (96-108); Estimated Glomerular Filt Rate > 60; Glucose Random 166 mg/dL (60-115); Potassium 4.3 mmol/L (3.3-5.1); Sodium 137 mmol/L (135-145)
== END 2021-02-11 11:11 | disposition home or self-care (01) ==
LOC: HO.LAB 11:10
PROVIDERS: PCP Internal Medicine; Visit Provider Internal Medicine
DX: R10.30 Lower abdominal pain, unspecified (principal); M25.522 Pain in left elbow; Z90.710 Acquired absence of both cervix and uterus
CPT/HCPCS: 36415; 80053; 83036

== ENCOUNTER 2021-02-22 13:12 | Outpatient (REF) | payer MEDICAID, SELFPAY ==
--- NOTE | ~2021-02-22 | MM_ITS ---
EXAMINATION: MM SCREENING DIGITAL BREAST TOMOSYNTHESIS, BILATERAL CLINICAL INFORMATION: Screening. Asymptomatic. The lifetime risk of breast cancer based on the Tyrer-Cuzick Model is 10%. COMPARISON: Mammography: 12/02/2019 (baseline). TECHNIQUE: Digital breast tomosynthesis is performed in both the craniocaudal and mediolateral oblique views along with computer-aided detection (CAD). Synthesized 2D images are generated from the tomosynthesis. FINDINGS: There are scattered areas of fibroglandular density (ACR BI-RADS breast composition Category b). There are no significant masses, abnormal calcifications, or other abnormalities. Breast tissue composition borders on predominantly fatty. Background stromal markings are stable. No significant changes. MM/MM tomosynthesis screening BI IMPRESSION: No mammographic evidence of malignancy. ASSESSMENT: BI-RADS 1: Negative RECOMMENDATION: Routine annual mammography screening. This patient's information was entered into a reminder system with a target due date for their next mammogram.
== END 2021-02-22 13:13 | disposition home or self-care (01) ==
LOC: HO.MAMMO 13:12
PROVIDERS: PCP Internal Medicine; Visit Provider Internal Medicine
DX: Z12.31 Encounter for screening mammogram for malignant neoplasm of breast (principal)
CPT/HCPCS: 77063; 77067

== ENCOUNTER 2021-05-05 19:42 | Emergency (ER) | payer MEDICAID, SELFPAY | END 2021-05-05 23:15 | disposition left against medical advice (07) | PROVIDERS: Emergency Provider Emergency Medicine; PCP Internal Medicine | DX: E13.9 Other specified diabetes mellitus without complications (principal) ==

== ENCOUNTER 2021-06-12 10:40 | Outpatient (REF) | payer MEDICAID, SELFPAY ==
[2021-06-12 11:28] LABS: Estimated Average Glucose 223 mg/dL; Hemoglobin A1c % 9.4 %
[2021-06-12 11:59] LABS: Alanine Aminotransferase 134 U/L (0-31); Alkaline Phosphatase 107 U/L (39-117); Anion Gap 13 (12-20); Aspartate Amino Transferase 119 U/L (5-31); Bilirubin Total 0.8 mg/dL (0.0-1.0); Blood Urea Nitrogen 11 mg/dL (9-16); Calcium 9.3 mg/dL (8.4-10.2); Carbon Dioxide 27 mmol/L (22-29); Chloride 101 mmol/L (96-108); Estimated Glomerular Filt Rate > 60; Glucose Random 237 mg/dL (60-115); Potassium 4.7 mmol/L (3.3-5.1); Sodium 136 mmol/L (135-145); Total Protein 7.9 g/dL (6.5-8.0)
== END 2021-06-12 10:41 | disposition home or self-care (01) ==
LOC: HO.LAB 10:40
PROVIDERS: PCP Internal Medicine; Visit Provider Internal Medicine
DX: E11.65 Type 2 diabetes mellitus with hyperglycemia (principal); G43.109 Migraine with aura, not intractable, without status migrainosus; I10 Essential (primary) hypertension; K76.0 Fatty (change of) liver, not elsewhere classified
CPT/HCPCS: 36415; 80053; 83036

== ENCOUNTER 2021-08-05 11:32 | Outpatient (REF) | payer MEDICAID, SELFPAY ==
[2021-08-05 14:06] LABS: Estimated Average Glucose 157 mg/dL; Hemoglobin A1c % 7.1 %
[2021-08-05 14:26] LABS: C Reactive Protein 2.01 mg/dL (< or = 0.50); Lipase 42 U/L (8-78)
[2021-08-05 14:35] LABS: Ferritin 87 ng/mL (10-250)
[2021-08-05 14:58] LABS: Folate 10.3 ng/mL (> or = 4.0); Vitamin B12 729 pg/mL (200-900)
[2021-08-06 08:55] LABS: H Pylori Breath Test Negative (Negative)
[2021-08-08 12:56] LABS: Alpha Fetoprotein 4.3 ng/mL
[2021-08-09 10:51] LABS: Smooth Muscle Antibody <20 U (<20)
[2021-08-10 12:31] LABS: Mitochondrial Antibodies NEGATIVE (NEGATIVE)
[2021-08-10 17:02] LABS: Vitamin D 25-OH, D2 <4 ng/mL; Vitamin D 25-OH, D3 30 ng/mL; Vitamin D 25-OH, Total 30 ng/mL (30-100)
[2021-08-10 18:27] LABS: FIB-ALT 91 U/L (6-29); FIB-Alpha-2-Macroglobulin 209 mg/dL (106-279); FIB-Apolipoprotein A1 122 mg/dL (101-198); FIB-GGT 47 U/L (3-55); FIB-Haptoglobin 189 mg/dL (43-212); FIB-Total Bilirubin 0.5 mg/dL (0.2-1.2); Liver Fibrosis Score 0.19; Liver Fibrosis Stage F0; Nec Inflam Act Grade A1-A2; Nec Inflam Act Score 0.49
== END 2021-08-05 11:33 | disposition home or self-care (01) ==
LOC: HO.LAB 11:32
PROVIDERS: PCP Internal Medicine; Referring Provider Internal Medicine; Visit Provider Nurse Practitioner Family
DX: K21.9 Gastro-esophageal reflux disease without esophagitis (principal); K58.9 Irritable bowel syndrome, unspecified; R19.7 Diarrhea, unspecified; E11.9 Type 2 diabetes mellitus without complications; R74.8 Abnormal levels of other serum enzymes; E55.9 Vitamin D deficiency, unspecified; R79.89 Other specified abnormal findings of blood chemistry
CPT/HCPCS: 36415; 81596; 82105; 82306; 82607; 82728; 82746; 83013; 83036; 83690; 86015; 86140; 86255; 86256; 99212

== ENCOUNTER 2021-08-13 14:27 | Outpatient (REF) | payer MEDICAID, SELFPAY ==
[2021-08-13 14:52] LABS: Carbon Monoxide Refer to POC result
[2021-08-13 15:05] LABS: Carbon Monoxide POC 0.7 %
[2021-08-13 15:14] LABS: Alanine Aminotransferase 87 U/L (0-31); Albumin Level 4.1 g/dL (3.5-5.0); Alkaline Phosphatase 107 U/L (39-117); Anion Gap 11 (12-20); Aspartate Amino Transferase 67 U/L (5-31); Bilirubin Total 0.6 mg/dL (0.0-1.0); Blood Urea Nitrogen 9 mg/dL (9-16); Calcium 9.5 mg/dL (8.4-10.2); Carbon Dioxide 28 mmol/L (22-29); Chloride 105 mmol/L (96-108); Estimated Glomerular Filt Rate > 60; Glucose Random 78 mg/dL (60-115); Potassium 4.5 mmol/L (3.3-5.1); Sodium 139 mmol/L (135-145); Total Protein 7.9 g/dL (6.5-8.0)
== END 2021-08-13 14:28 | disposition home or self-care (01) ==
LOC: HO.LAB 14:27
PROVIDERS: PCP Internal Medicine; Visit Provider Internal Medicine
DX: E11.9 Type 2 diabetes mellitus without complications (principal); R11.10 Vomiting, unspecified; R19.7 Diarrhea, unspecified; R51.9 Headache, unspecified; Z77.128 Contact with and (suspected) exposure to other hazards in the physical environment
CPT/HCPCS: 36415; 80053; 82375

== ENCOUNTER 2021-10-07 11:39 | Outpatient (REF) | payer MEDICAID, SELFPAY ==
[2021-10-07 13:34] LABS: Alanine Aminotransferase 88 U/L (0-31); Alkaline Phosphatase 111 U/L (39-117); Anion Gap 13 (12-20); Aspartate Amino Transferase 70 U/L (5-31); Bilirubin Total 0.8 mg/dL (0.0-1.0); Blood Urea Nitrogen 10 mg/dL (9-16); Calcium 9.5 mg/dL (8.4-10.2); Carbon Dioxide 27 mmol/L (22-29); Chloride 103 mmol/L (96-108); Estimated Glomerular Filt Rate > 60; Glucose Random 125 mg/dL (60-115); Potassium 4.5 mmol/L (3.3-5.1); Sodium 138 mmol/L (135-145); Total Protein 7.9 g/dL (6.5-8.0)
== END 2021-10-07 11:40 | disposition home or self-care (01) ==
LOC: HO.LAB 11:39
PROVIDERS: PCP Internal Medicine; Visit Provider Internal Medicine
DX: E11.9 Type 2 diabetes mellitus without complications (principal); R11.10 Vomiting, unspecified; R19.7 Diarrhea, unspecified; R51.9 Headache, unspecified; Z77.128 Contact with and (suspected) exposure to other hazards in the physical environment
CPT/HCPCS: 80053

== ENCOUNTER 2021-12-23 09:16 | Outpatient (REF) | payer MEDICAID, SELFPAY ==
[2021-12-26 04:22] LABS: HPV mRNA E6/E7 rflx Not Detected (Not Detected)
== END 2021-12-23 09:17 | disposition home or self-care (01) ==
LOC: HO.LAB 09:16
PROVIDERS: PCP Internal Medicine; Visit Provider Obstetrics & Gynecology
DX: Z01.419 Encounter for gynecological examination (general) (routine) without abnormal findings (principal); Z11.51 Encounter for screening for human papillomavirus (HPV); R10.2 Pelvic and perineal pain; C53.9 Malignant neoplasm of cervix uteri, unspecified
CPT/HCPCS: 87624; 88142; 99212

== ENCOUNTER 2022-01-02 09:22 | Outpatient (REF) | payer MEDICAID, SELFPAY ==
[2022-01-02 10:01] LABS: MANUAL DIFF FLAG NO
[2022-01-02 10:17] LABS: Basophils Percent Auto 0.4 % (0-2); Eosinophils Absolute Auto 0.1 X10*3/uL (0.0-0.4); Eosinophils Percent Auto 2.3 % (0-4); Hematocrit 40.1 % (37.0-47.0); Hemoglobin 12.9 g/dl (12.0-16.0); Imm Gran Abs Auto 0.01 X10*3/uL (0.00-0.03); Imm Gran Pct Auto 0.2 % (0.0-0.4); Lymphocytes Percent Auto 37.5 % (20-40); Mean Corpuscular HGB Conc 32.2 g/dl (31.0-35.0); Mean Corpuscular Hemoglobin 29.2 pg (27.0-33.0); Mean Corpuscular Volume 90.7 fL (80.0-98.0); Mean Platelet Volume 9.5 fL (9.4-12.3); Monocytes Absolute Auto 0.4 X10*3/uL (0.1-1.2); Monocytes Percent Auto 6.8 % (2-11); Neutrophils Absolute Auto 2.8 x10*3/uL (2.0-8.3); Neutrophils Percent Auto 52.8 % (45-73); Platelet Count 241 X10*3/uL (160-400); Red Blood Count 4.42 X10*6/uL (4.20-5.50); Red Cell Distribution Width 13.5 % (11.0-16.0); White Blood Count 5.3 X10*3/uL (4.8-10.8)
[2022-01-02 10:31] LABS: Estimated Average Glucose 126 mg/dL
[2022-01-02 10:41] LABS: Alanine Aminotransferase 66 U/L (0-31); Alkaline Phosphatase 107 U/L (39-117); Anion Gap 14 (12-20); Aspartate Amino Transferase 43 U/L (5-31); Bilirubin Total 0.8 mg/dL (0.0-1.0); Blood Urea Nitrogen 9 mg/dL (9-16); Calcium 9.3 mg/dL (8.4-10.2); Carbon Dioxide 28 mmol/L (22-29); Chloride 104 mmol/L (96-108); Cholesterol 144 mg/dL; Estimated Glomerular Filt Rate > 60; Glucose Random 148 mg/dL (60-115); HDL Cholesterol 33 mg/dL; LDL Cholesterol Calculated 94 mg/dl; Potassium 4.8 mmol/L (3.3-5.1); Sodium 141 mmol/L (135-145); Total Protein 7.6 g/dL (6.5-8.0); Triglycerides 88 mg/dL
[2022-01-02 11:03] LABS: Thyroid Stimulating Hormone 2.48 uIU/mL (0.32-4.0)
[2022-01-02 11:54] LABS: Creatinine Urine 160.09 mg/dL; Microalbum/Creatinine Ratio Ur 6.2 ug/mg cr
== END 2022-01-02 09:23 | disposition home or self-care (01) ==
LOC: HO.LAB 09:22
PROVIDERS: Absent Provider Internal Medicine; PCP Internal Medicine; Visit Provider Obstetrics & Gynecology
DX: E11.9 Type 2 diabetes mellitus without complications (principal); E78.2 Mixed hyperlipidemia; R10.9 Unspecified abdominal pain; R74.01 Elevation of levels of liver transaminase levels
CPT/HCPCS: 36415; 80053; 80061; 82043; 83036; 84443; 85025

== ENCOUNTER 2022-01-06 07:54 | Outpatient (REF) | payer MEDICAID, SELFPAY ==
--- NOTE | ~2022-01-06 | CT_ITS ---
EXAMINATION: CT ABDOMEN AND PELVIS WITH CONTRAST CLINICAL INFORMATION: Malignant neoplasm. Pelvic perineal pain. COMPARISON: Ultrasound abdomen 06/27/2020. TECHNIQUE: Multidetector volumetric images were obtained from the superior aspect of the liver through the pubic symphysis following administration 100 mL of Omnipaque 350 intravenous contrast. Sagittal and coronal reformatted images were obtained on the technologist's workstation. Oral contrast: No This CT examination was performed using dose optimization techniques as appropriate, variously including the following: *Automated exposure control *Adjustment of mA and/or kV according to patient size (this includes techniques or standardized protocols for targeted exams where dose is matched to indication/reason for exam; i.e. extremities or head) *Use of iterative reconstruction technique DLP: 650 mGy-cm. FINDINGS: LUNG BASES: The visualized lung bases are unremarkable. LIVER, GALLBLADDER, AND BILIARY TREE: The liver is normal in size, shape, and diffusely attenuated. No focal hepatic lesion or biliary ductal dilatation is present. The gallbladder has been surgically removed. PANCREAS: Unremarkable. SPLEEN: Unremarkable. ADRENAL GLANDS: Unremarkable. KIDNEYS AND URETERS: The kidneys are normal in size, shape, and attenuation. No hydronephrosis, hydroureter, or calculi seen. No perinephric stranding. BLADDER: Unremarkable. GASTROINTESTINAL TRACT: There is scattered stool and oral contrast seen throughout the colon without any significant distention. The small bowel loops are normal caliber. Appendix is normal caliber. No inflammatory process of free fluid seen. ABDOMINAL WALL: No significant hernia is appreciated. LYMPH NODES: There are very small left internal inguinal lymph nodes largest measuring 6 mm on axial image 70/3. There are additional smaller nodules. No abnormal lymph nodes seen in the right pelvis. VASCULAR: Unremarkable. PELVIC VISCERA: The uterus has been surgically removed. Both ovaries are small. No free fluid. OSSEOUS STRUCTURES: No lytic or sclerotic process seen. There is mild ventral spondylosis lumbar spine. CT/CT abdomen pelvis w con IMPRESSION: Likely total hysterectomy with small ovaries. 6 mm-sized left inguinal lymph nodes within normal limits. No abnormal right iliac lymph nodes seen. Mild constipation. Mild hepatic fatty infiltration without focal lesion. Fleischner guidelines were followed.
[2022-01-06] MEDS: iohexoL 350 MG/ML 100 ML INFUS..BTL IV (10:30)
[2022-01-06] MEDS: Barium Sulfate Oral (Vanilla) 450 ML ORAL.SUSP 900 ML PO (10:31)
== END 2022-01-06 07:55 | disposition home or self-care (01) ==
LOC: HO.CT 07:54
PROVIDERS: Visit Provider Obstetrics & Gynecology
DX: C53.9 Malignant neoplasm of cervix uteri, unspecified (principal); R10.2 Pelvic and perineal pain
CPT/HCPCS: 74177; Q9967

== ENCOUNTER 2022-01-28 11:52 | Outpatient (REF) | payer MEDICAID, SELFPAY ==
[2022-01-28 18:08] LABS: CT PCR NOT DETECTED (Not Detect.); NG PCR NOT DETECTED (Not Detect.)
[2022-01-29 15:51] LABS: BV Int Neg Control Negative (Negative); BV Int Pos Control Positive (Positive)
== END 2022-01-28 11:53 | disposition home or self-care (01) ==
LOC: HO.LNP 11:52
PROVIDERS: Visit Provider Obstetrics & Gynecology
DX: Z11.3 Encounter for screening for infections with a predominantly sexual mode of transmission (principal); B37.3 Candidiasis of vulva and vagina
CPT/HCPCS: 87480; 87491; 87510; 87591; 87660; 99212

== ENCOUNTER 2022-02-05 09:48 | Outpatient (REF) | payer MEDICAID, SELFPAY ==
[2022-02-06 13:44] LABS: BV Int Neg Control Negative (Negative); BV Int Pos Control Positive (Positive)
== END 2022-02-05 09:49 | disposition home or self-care (01) ==
LOC: HO.LNP 09:48
PROVIDERS: Visit Provider Obstetrics & Gynecology
DX: R10.2 Pelvic and perineal pain (principal); C53.9 Malignant neoplasm of cervix uteri, unspecified; N76.0 Acute vaginitis; B96.89 Other specified bacterial agents as the cause of diseases classified elsewhere
CPT/HCPCS: 87480; 87510; 87660; 99212

== ENCOUNTER 2022-02-24 10:50 | Outpatient (REF) | payer MEDICAID, SELFPAY ==
--- NOTE | ~2022-02-24 | MM_ITS ---
EXAMINATION: MM SCREENING DIGITAL BREAST TOMOSYNTHESIS, BILATERAL CLINICAL INFORMATION: Screening. Asymptomatic. The lifetime risk of breast cancer based on the Tyrer-Cuzick Model is 9%. COMPARISON: Mammography: 02/22/2021, 12/02/2019 TECHNIQUE: Digital breast tomosynthesis is performed in both the craniocaudal and mediolateral oblique views along with computer-aided detection (CAD). Synthesized 2D images are generated from the tomosynthesis. FINDINGS: There are scattered areas of fibroglandular density (ACR BI-RADS breast composition Category b). There are no significant masses, abnormal calcifications, or other abnormalities. Parenchymal pattern is similar to prior studies. There is no developing density or architectural abnormality. The axilla and skin contours are unremarkable. No significant changes. MM/MM tomosynthesis screening BI IMPRESSION: No mammographic evidence of malignancy. ASSESSMENT: BI-RADS 1: Negative RECOMMENDATION: Routine annual mammography screening. This patient's information was entered into a reminder system with a target due date for their next mammogram.
== END 2022-02-24 10:51 | disposition home or self-care (01) ==
LOC: HO.MAMMO 10:50
PROVIDERS: PCP Internal Medicine; Visit Provider Obstetrics & Gynecology
DX: Z12.31 Encounter for screening mammogram for malignant neoplasm of breast (principal)
CPT/HCPCS: 77063; 77067

== ENCOUNTER 2022-03-14 15:13 | Outpatient (REF) | payer MEDICAID, SELFPAY ==
[2022-03-14 16:05] LABS: Alanine Aminotransferase 28 U/L (0-31); Albumin Level 4.5 g/dL (3.5-5.0); Alkaline Phosphatase 99 U/L (39-117); Aspartate Amino Transferase 22 U/L (5-31); Bilirubin Direct 0.2 mg/dL (0.0-0.5); Bilirubin Total 0.6 mg/dL (0.0-1.0); Total Protein 8.4 g/dL (6.5-8.0)
== END 2022-03-14 15:14 | disposition home or self-care (01) ==
LOC: HO.LAB 15:13
PROVIDERS: Nurse Practitioner Family; PCP Internal Medicine; Visit Provider Obstetrics & Gynecology
DX: R10.9 Unspecified abdominal pain (principal)
CPT/HCPCS: 36415; 80076; 99212

== ENCOUNTER 2022-04-22 23:32 | Emergency (ER) | payer MEDICAID, SELFPAY ==
--- NOTE | ~2022-04-22 | CT_ITS ---
EXAMINATION: CT ABDOMEN AND PELVIS WITH CONTRAST CLINICAL INFORMATION: Diarrhea. Abdominal pain. COMPARISON: CT abdomen pelvis 01/06/2022. TECHNIQUE: Multidetector volumetric images were obtained from the superior aspect of the liver through the pubic symphysis following administration 85 mL of Omnipaque 350 intravenous contrast. Sagittal and coronal reformatted images were obtained on the technologist's workstation. Oral contrast: No This CT examination was performed using dose optimization techniques as appropriate, variously including the following: *Automated exposure control *Adjustment of mA and/or kV according to patient size (this includes techniques or standardized protocols for targeted exams where dose is matched to indication/reason for exam; i.e. extremities or head) *Use of iterative reconstruction technique DLP: 919 mGy-cm FINDINGS: LUNG BASES: The visualized lung bases are unremarkable. LIVER, GALLBLADDER, AND BILIARY TREE: The liver is normal in size, shape, and attenuation. No focal hepatic lesion or biliary ductal dilatation is present. Cholecystectomy clips noted. PANCREAS: Unremarkable. SPLEEN: Unremarkable. ADRENAL GLANDS: Unremarkable. KIDNEYS AND URETERS: Anterior rotation of the right kidney. No hydronephrosis or perinephric inflammatory changes. No suspicious renal parenchymal lesions. BLADDER: Physiologically distended. GASTROINTESTINAL TRACT: Mild scattered colonic diverticulosis. Normal appearance of the appendix. Normal terminal ileum. No intestinal dilatation or mural thickening. No free intraperitoneal fluid or gas collections. Normal appearance of the stomach. ABDOMINAL WALL: No significant hernia is appreciated. LYMPH NODES: Normal. VASCULAR: Unremarkable. PELVIC VISCERA: Uterus is absent. No adnexal lesions noted. Surgical clip is present in the right hemipelvis. OSSEOUS STRUCTURES: No suspicious skeletal lesions noted. Mild multilevel facet and anterior endplate osteophytosis of the lumbar spine and visualized thoracic spine. CT/CT abdomen pelvis w IV con IMPRESSION: 1. No acute abnormalities identified. No evidence of obstruction or constipation/obstipation. 2. Mild scattered colonic diverticulosis. No evidence of acute diverticulitis. 3. Normal appendix. 4. Status post cholecystectomy. 5. Status post hysterectomy. No adnexal lesions identified.
[2022-04-22 23:34] VITALS: BP 121/69; PULSE 76; RESP 18; TEMP 36.4; O2SAT 97; BMI 39.1
[2022-04-23 00:03] LABS: MANUAL DIFF FLAG NO
[2022-04-23 00:04] LABS: Basophils Percent Auto 0.1 % (0-2); Eosinophils Absolute Auto 0.1 X10*3/uL (0.0-0.4); Eosinophils Percent Auto 0.6 % (0-4); Hemoglobin 13.2 g/dl (12.0-16.0); Imm Gran Abs Auto 0.03 X10*3/uL (0.00-0.03); Imm Gran Pct Auto 0.3 % (0.0-0.4); Lymphocytes Percent Auto 36.1 % (20-40); Mean Corpuscular Hemoglobin 29.9 pg (27.0-33.0); Mean Corpuscular Volume 90.5 fL (80.0-98.0); Mean Platelet Volume 9.1 fL (9.4-12.3); Monocytes Percent Auto 9.1 % (2-11); Neutrophils Absolute Auto 5.9 x10*3/uL (2.0-8.3); Neutrophils Percent Auto 53.8 % (45-73); Platelet Count 304 X10*3/uL (160-400); Red Blood Count 4.42 X10*6/uL (4.20-5.50); Red Cell Distribution Width 12.4 % (11.0-16.0); White Blood Count 10.9 X10*3/uL (4.8-10.8)
[2022-04-23 00:05] LABS: Appearance Urine Clear; Color Urine Yellow; Glucose Urine UA >=1000 mg/dL (Negative); Leukocyte Esterase Urine Small (1+) (Negative); Nitrite Urine Negative (Negative); Specific Gravity - Urine >= 1.030 (1.005-1.025); UMIC TRIGGER UACC YES; Urine Blood Negative (Negative); Urine Ketones Trace mg/dL (Negative); Urine Protein Negative (Neg-Trace)
[2022-04-23 00:10] LABS: Bacteria Urine None Seen (None Seen); Hyaline Casts Urine 0-2 /LPF (0-2); UACC Culture Trigger YES
[2022-04-23 00:36] LABS: Alanine Aminotransferase 39 U/L (0-31); Albumin Level 4.1 g/dL (3.5-5.0); Alkaline Phosphatase 106 U/L (39-117); Anion Gap 13 (12-20); Aspartate Amino Transferase 23 U/L (5-31); Blood Urea Nitrogen 11 mg/dL (9-16); Calcium 9.4 mg/dL (8.4-10.2); Carbon Dioxide 26 mmol/L (22-29); Chloride 103 mmol/L (96-108); Creatinine Clr Calc Pharmacy 102.8; Estimated Glomerular Filt Rate > 60; Glucose Random 118 mg/dL (60-115); Lipase 32 U/L (8-78); Potassium 4.1 mmol/L (3.3-5.1); Sodium 138 mmol/L (135-145); Total Protein 7.7 g/dL (6.5-8.0)
--- NOTE | 2022-04-23 00:45 | ED_ITS ---
HPI - Abdominal Pain General Chief Complaint: Abdominal Pain Stated Complaint: abdominal pain Time Seen by Provider: 04/23/22 00:14 Source: patient Mode of arrival: ambulatory Limitations: no limitations History of Present Illness HPI narrative: 41-year-old female history of adenocarcinoma of cervix, diabetes, IBS, GERD presents to the emergency department complaints of nausea, vomiting, diarrhea and abdominal pain x2 weeks worsening. Patient tells me that she has had 2 episodes of vomiting today, tells me she vomits when she eats. Reports continuous nausea throughout the day. Reports she has had 4-5 episodes of completely watery, nonbloody brown diarrhea. Denies recent antibiotic use. Patient tells me that she is having diffuse abdominal pain however it is worse in the left lower quadrant and right upper quadrant. Patient tells me she is not sure what makes the pain better or worse, she is unsure if it is affected by eating. Patient denies fevers, chills, chest pain, shortness of breath, heada anibal, vision changes, dizziness, abdominal trauma, weakness, hematemesis, hematochezia. Related Data Home Medications Medication Instructions Recorded Confirmed pentosan polysulfate sodium 100 mg 100 mg PO TID 05/21/20 08/24/20 capsule (Elmiron) propranolol 120 mg capsule,24 120 mg PO DAILY 05/21/20 08/24/20 hr,extended release (Inderal LA) venlafaxine 75 mg capsule,extended 75 mg PO DAILY 05/21/20 08/24/20 release 24 hr glipizide 2.5 mg tablet, extended 2.5 mg PO DAILY 10/22/20 10/22/20 release 24 hr metformin 1,000 mg tablet 1,000 mg PO BID 10/22/20 10/22/20 Previous Rx's Medication Instructions Recorded lidocaine-prilocaine 2.5 %-2.5 % 1 appl topical BID 30 days #30 04/19/20 topical cream grams ibuprofen 400 mg tablet 400 mg PO Q6H PRN pain #20 tabs 10/20/20 cholecalciferol (vitamin D3) 50 50 mcg PO DAILY #30 caps 11/27/20 mcg (2,000 unit) capsule docusate sodium 100 mg capsule 100 mg PO BEDTIME #90 caps 08/05/21 sennosides 8.6 mg tablet (senna) 17.2 mg PO BEDTIME for 09/25/21 constipation #60 tabs clotrimazole-betamethasone 1 1 appl topical BID 5 days #45 grams 01/28/22 %-0.05 % topical cream metronidazole 500 mg tablet 500 mg PO BID 7 days #14 tabs 01/29/22 metronidazole 500 mg tablet 500 mg PO BID 7 days #14 tabs 02/06/22 terconazole 0.8 % vaginal cream 1 appful vaginal BEDTIME 3 days 02/06/22 #20 grams famotidine 40 mg tablet 40 mg PO BEDTIME #90 tabs 03/14/22 pantoprazole 40 mg tablet,delayed 40 mg PO DAILY #90 tabs 03/14/22 release polyethylene glycol 3350 17 238 g PO ONCE #238 grams 03/14/22 gram/dose oral powder (Miralax) bisacodyl 5 mg tablet,delayed 10 mg PO ONCE 1 day #2 tabs 04/02/22 release (Dulcolax (bisacodyl)) loperamide 2 mg capsule 2 mg PO Q6H PRN loose stool #20 04/23/22 caps ondansetron 4 mg disintegrating 4 mg PO Q6H PRN nausea and 04/23/22 tablet vomiting #14 tabs Allergies Allergy/AdvReac Type Severity Reaction Status Date / Time acetaminophen [Percocet] Allergy Unknown hives Verified 04/22/22 23:40 oxycodone [Percocet] Allergy Unknown hives Verified 04/22/22 23:40 BCP Allergy Unknown headache Uncoded 08/24/20 09:15 Review of Systems Review of Systems Constitutional : No Weight loss, No Fever, No Chills, No Fatigue, No Malaise ENT/Mouth : No sore throat, No Rhinorrhea Eyes: No Eye Pain, No Swelling, No Redness Cardiovascular : No Chest Pain, No SOB, No Dyspnea on Exertion, No Orthopnea, No Edema, No Palpitations Respiratory : No Cough, No Sputum, No Wheezing Gastrointestinal : + Nausea, + Vomiting, + Diarrhea, No Constipation, + abdomina l Pain, No Hematochezia, No Melena Genitourinary : No Dysuria, No Urinary Frequency, No Hematuria, Musculoskeletal : No joint pain, No Myalgias, No Joint Swelling Skin : No Skin Lesions, No rash Neuro : No Weakness, No Numbness, No Dizziness, No Headache Psych : No Anxiety/Panic, No Depression All other systems reviewed and are negative Yes all other systems are reviewed and are negative [facility] Past Medical History Attestation statement: The following information was validated with the patient. Source: old records reviewed and nursing notes reviewed Medical History 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, managed as type 2 GERD (gastroesophageal reflux disease) Hepatic steatosis Hypertension IBS (irritable colon syndrome) Pre-diabetes Thalamic pain syndrome Transaminitis Surgical History H/O: hysterectomy (~2018) History of esophagogastroduodenoscopy (EGD) (~2017) Hx of colonoscopy (~2017) Family History Family History Father Diabetes FH: stomach cancer FH: cancer FHx: hypercholesterolemia Cancer Brother FH: stomach cancer Cancer Mother FH: depression FH: diabetes mellitus FH: cancer Maternal Uncle Cancer FH: cancer Sister Cancer Paternal Grandfather Family history of colon cancer Social History Social History Household Members: Spouse Alcohol intake: current Alcohol intake frequency: does not drink Advance Directives: No Advance Directives Information Provided: No Current occupational status: unemployed Physical Exam ED Vital Signs: Vital Signs - 24 hr 04/22/22 23:34 04/23/22 01:00 Temperature 97.6 F 97.9 F Pulse Rate 76 81 Respiratory Rate 18 17 Blood Pressure 121/69 107/62 Pulse Oximetry 97 97 Oxygen Delivery Method Room Air Room Air BMI result Body Mass Index 39.1 vss Appearance: Alert.? Oriented X3.? No acute distress.? Head: Normocephalic, atraumatic, no step-offs or deformities Eyes: Pupils equal, round and reactive to light.? Neck: Normal inspection.? Neck supple.? CVS: Normal heart rate and rhythm.? Pulses normal.? Respiratory: No respiratory distress.? Breath sounds normal.? Abdomen: Soft and + diffusely tender worse in LLQ.? Skin: Skin warm and dry.? Normal skin color.? Normal skin turgor.? Extremities: No lower extremity edema.? No calf ttp. 5/5 strength to bilateral upper and lower extremities Back: No CVA tenderness bilaterally Neuro: Oriented X 3.? No motor deficit.? No sensory deficit. CN 2-12 intact Course Reevaluation(s) Reevaluation #1: Scratch CBC with slight leukocytosis 10.9 likely reactive secondary to nausea and vomiting. Chemistry with no acute electrolyte abnormalities requiring intervention. Lipase within normal limits. UA without infection. Urine negative for . CT of the abdomen pelvis pending. Sign out tonight provider Time: 01:38 Medical Decision Making Medical Decision Making [facility] Narrative: 0050 41-year-old female presenting with nausea, vomiting, diarrhea, diffuse abdominal pain however worse in the left lower quadrant. X2 weeks worsening. Physical examination with diffuse abdominal tenderness worse to the left lower quadrant. Negative Walsh sign. Likely viral versus IBS. I do not suspect acute abdomen, cholecystitis, appendicitis, pancreatitis, unlikely small or large bowel obstruction. Plan at this time labs, imaging, urine, CT of the abdomen pelvis. Will give Zofran and loperamide for symptoms. Will hydrate with IV fluids. Medications Administered Generic Name Dose Route Start Last Admin Trade Name Freq PRN Reason Stop Dose Admin Sodium Chloride 1,000 mls @ 999 mls/hr 04/23/22 01:00 04/23/22 00:59 Ns IV 04/23/22 02:00 999 mls/hr .Q1H1M AYAZ Administration Discontinued Medications Generic Name Dose Route Start Last Admin Trade Name Freq PRN Reason Stop Dose Admin Loperamide HCl 2 mg 04/23/22 00:49 04/23/22 00:59 Loperamide Hcl 2 Mg Capsule PO 04/23/22 00:50 2 mg ONCE ONE Administration Ondansetron HCl 4 mg 04/23/22 00:49 04/23/22 00:59 Ondansetron Hcl 4 Mg/2 Ml Vial IVPUSH 04/23/22 00:50 4 mg ONCE ONE Administration Critical Care Time Critical Care Time Critical Care Time: No Discharge Plan Discharge Clinical Impression: Abdominal pain, Nausea & vomiting, Diarrhea Patient Disposition: Home, Self-Care Instructions: Acute Nausea and Vomiting (ED), Acute Diarrhea (ED), Abdominal Pain (ED) Additional Instructions: Take your medications as prescribed. If you were prescribed antibiotics today, it is important that you take your medication to their entirety, do not skip any doses, do not finish them early. Follow-up with your primary care provider this week. Follow-up with gastroenterology if symptoms persist. Return to the emergency department with new or worsening symptoms. Such as fevers, chills, chest pain, shortness of breath, nausea, vomiting, dizziness, headache, vision changes, lethargy, not tolerating anything by mouth. In case of emergency call 911 Prescriptions: New ondansetron 4 mg tablet,disintegrating 4 mg PO Q6H PRN (Reason: nausea and vomiting) Qty: 14 0RF loperamide 2 mg capsule 2 mg PO Q6H PRN (Reason: loose stool) Qty: 20 0RF No Action lidocaine-prilocaine 2.5-2.5 % cream 1 appl topical BID 30 Days Qty: 30 0RF Rx Instructions: Apply lightly to right upper abdomen and back topically cholecalciferol (vitamin D3) 50 mcg (2,000 unit) capsule 50 mcg PO DAILY Qty: 30 3RF sennosides [senna] 8.6 mg tablet 17.2 mg PO BEDTIME Qty: 60 1RF metronidazole 500 mg tablet 500 mg PO BID 7 Days Qty: 14 0RF terconazole 0.8 % cream 1 appful vaginal BEDTIME 3 Days Qty: 20 0RF metronidazole 500 mg tablet 500 mg PO BID 7 Days Qty: 14 0RF bisacodyl [Dulcolax (bisacodyl)] 5 mg tablet,delayed release (DR/EC) 10 mg PO ONCE 1 Days Qty: 2 0RF Rx Instructions: take 2 tabs at noon the day before your colonoscopy ibuprofen 400 mg tablet 400 mg PO Q6H PRN (Reason: pain) Qty: 20 0RF venlafaxine 75 mg capsule,extended release 24hr 75 mg PO DAILY propranolol [Inderal LA] 120 mg capsule,extended release 24 hr 120 mg PO DAILY Elmiron 100 mg capsule 100 mg PO TID metformin 1,000 mg tablet 1,000 mg PO BID glipizide 2.5 mg tablet extended release 24hr 2.5 mg PO DAILY docusate sodium 100 mg capsule 100 mg PO BEDTIME Qty: 90 3RF clotrimazole-betamethasone 1-0.05 % cream 1 appl topical BID 5 Days Qty: 45 0RF polyethylene glycol 3350 [Miralax] 17 gram/dose powder 238 g PO ONCE Qty: 238 0RF Rx Instructions: As directed by gastroenterology department at [facility] pantoprazole 40 mg tablet,delayed release (DR/EC) 40 mg PO DAILY Qty: 90 2RF Rx Instructions: take one tablet half an hour before breakfast famotidine 40 mg tablet 40 mg PO BEDTIME Qty: 90 2RF Referrals: Alma Narvaez MD [Primary Care Provider] - 2 days [facility]Provider Group] - 1 week Stand Alone Forms: Work/School Release
[2022-04-23 00:48] LABS: UPreg QC Valid YES; Urine Pregnancy NEGATIVE (NEGATIVE)
[2022-04-23] MEDS: ondansetron HCL 4 MG/2 ML VIAL IVPUSH (00:59)
[2022-04-23] MEDS: 0.9 % Sodium Chloride 1,000 ML 999 ML IV (00:59)
[2022-04-23] MEDS: Loperamide HCl 2 MG CAPSULE PO (00:59)
[2022-04-23 01:00] VITALS: BP 107/62; PULSE 81; RESP 17; TEMP 36.6; O2SAT 97
[2022-04-23 01:50] LABS: Bilirubin Total 0.4 mg/dL (0.0-1.0)
[2022-04-23] MEDS: iohexoL 350 MG/ML 100 ML INFUS..BTL 85 ML IV (01:55)
[2022-04-23 02:19] VITALS: BP 105/60; PULSE 92; RESP 20; TEMP 36.6; O2SAT 98
== END 2022-04-23 03:08 | disposition home or self-care (01) ==
PROVIDERS: Physician Assistant; Emergency Provider Internal Medicine; PCP Internal Medicine
DX: R10.13 Epigastric pain (principal); R11.2 Nausea with vomiting, unspecified; R19.7 Diarrhea, unspecified; Z79.899 Other long term (current) drug therapy
CPT/HCPCS: 36415; 74177; 80053; 81001; 81025; 83690; 85025; 87086; 96361; 96374; 99283; 99284; J2405; Q9967

== ENCOUNTER → 2022-04-30 10:55 | Outpatient (BNVA) | payer MEDICAID, SELFPAY | PROVIDERS: PCP Internal Medicine; Visit Provider Nurse Practitioner Family | DX: K21.9 Gastro-esophageal reflux disease without esophagitis (principal); K58.1 Irritable bowel syndrome with constipation; K76.0 Fatty (change of) liver, not elsewhere classified; Z79.899 Other long term (current) drug therapy | CPT/HCPCS: 99212 ==

== ENCOUNTER 2022-05-15 11:34 | Outpatient (REF) | payer MEDICAID, SELFPAY ==
[2022-05-15 12:19] LABS: Estimated Average Glucose 128 mg/dL; Hemoglobin A1c % 6.1 %
[2022-05-15 12:45] LABS: Blood Urea Nitrogen 15 mg/dL (9-16); Estimated Glomerular Filt Rate > 60
[2022-05-15 12:47] LABS: Alanine Aminotransferase 25 U/L (0-31); Albumin Level 4.2 g/dL (3.5-5.0); Alkaline Phosphatase 100 U/L (39-117); Anion Gap 11 (12-20); Aspartate Amino Transferase 22 U/L (5-31); Bilirubin Total 0.5 mg/dL (0.0-1.0); Blood Urea Nitrogen 15 mg/dL (9-16); Calcium 9.8 mg/dL (8.4-10.2); Carbon Dioxide 30 mmol/L (22-29); Chloride 105 mmol/L (96-108); Cholesterol 168 mg/dL; Estimated Glomerular Filt Rate > 60; Glucose Random 114 mg/dL (60-115); HDL Cholesterol 43 mg/dL; LDL Cholesterol Calculated 87 mg/dl; Potassium 4.6 mmol/L (3.3-5.1); Sodium 141 mmol/L (135-145); Triglycerides 190 mg/dL
[2022-05-16 06:51] LABS: Syphilis Screen Nonreactive (Nonreactive)
[2022-05-16 07:29] LABS: HBsAGNum1 0.31 S/CO (0.00-0.99); HIV AB/AG Nonreactive (Nonreactive); HIV Num 1 0.08 S/CO (0.00-0.99); Hepatitis B Surface Antigen Negative (Negative); ~HepC Num1 0.11 S/CO (0.00-0.79); ~Hepatitis C Antibody Nonreactive (Nonreactive)
== END 2022-05-15 11:35 | disposition home or self-care (01) ==
LOC: HO.LAB 11:34
PROVIDERS: PCP Internal Medicine; Visit Provider Obstetrics & Gynecology
DX: Z01.812 Encounter for preprocedural laboratory examination (principal); Z11.4 Encounter for screening for human immunodeficiency virus [HIV]; B96.89 Other specified bacterial agents as the cause of diseases classified elsewhere; N76.0 Acute vaginitis; B37.31 Acute candidiasis of vulva and vagina; E11.9 Type 2 diabetes mellitus without complications; E78.2 Mixed hyperlipidemia; K58.9 Irritable bowel syndrome, unspecified
CPT/HCPCS: 36415; 80053; 80061; 82565; 83036; 84520; 86780; 86803; 87340; 87389

== ENCOUNTER 2022-05-16 12:56 | Outpatient (REF) | payer MEDICAID, SELFPAY ==
[2022-05-23 14:14] LABS: Pancreatic Elastase-1 >500 mcg/g
== END 2022-05-16 12:57 | disposition home or self-care (01) ==
LOC: HO.LNP 12:56
PROVIDERS: Visit Provider Nurse Practitioner Family
DX: K21.9 Gastro-esophageal reflux disease without esophagitis (principal); R10.9 Unspecified abdominal pain
CPT/HCPCS: 82656; 87338

== ENCOUNTER 2022-05-22 06:09 | Day surgery (SDC) | payer MEDICAID, SELFPAY ==
[2022-05-16 14:40] VITALS: BMI 38.1
--- NOTE | 2022-05-21 13:33 | HO.ANESPROP2 ---
Documented by User: Pat Collazo NP 05/21/22 13:35 HPI - Anesthesia Eval Consult details Narrative: 41yo F for Upper Endoscopy and Colonoscopy PMFSH Active Problems Active Problems: All Active Problems (Updated 04/24/22 @ 00:02 by Asuncion Trejo) Bacterial vaginosis (Acute) Vulvovaginitis sae albicans (Acute) Pre-procedure lab exam (Acute) Adenocarcinoma of cervix (Acute) Pelvic pain (Acute) Well woman exam (Acute) Transaminitis (Acute) Diabetes 1.5, managed as type 2 (Acute) Thalamic pain syndrome (Acute) Hepatic steatosis (Acute) IBS (irritable colon syndrome) (Acute) GERD (gastroesophageal reflux disease) (Acute) Past Medical History Medical History 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, managed as type 2 GERD (gastroesophageal reflux disease) Hepatic steatosis Hypertension IBS (irritable colon syndrome) Pre-diabetes Thalamic pain syndrome Transaminitis Family History Family History Father Diabetes FH: stomach cancer FH: cancer FHx: hypercholesterolemia Cancer Brother FH: stomach cancer Cancer Mother FH: depression FH: diabetes mellitus FH: cancer Maternal Uncle Cancer FH: cancer Sister Cancer Paternal Grandfather Family history of colon cancer Surgical History Surgical History H/O: hysterectomy (~2018) History of esophagogastroduodenoscopy (EGD) (~2017) Hx of colonoscopy (~2017) Social History Social History Household Members: Spouse Alcohol intake: current Alcohol intake frequency: does not drink Patient Tobacco Use Status: Former Tobacco user Tobacco use type: Cigarette Use of substances other than those prescribed or required for medical reasons: No Are you DNR?: No Advance Directives: No Advance Directives Information Provided: Yes Advance Directives on File: No Current occupational status: unemployed Meds Allergies Allergy/AdvReac Type Severity Reaction Status Date / Time oxycodone [Percocet] Allergy Mild hives Verified 05/22/22 06:39 Home Medications Medication Instructions Recorded Confirmed Last Taken Type pentosan polysulfate sodium 100 mg 100 mg PO TID 05/21/20 08/24/20 Unknown History capsule (Elmiron) propranolol 120 mg capsule,24 120 mg PO DAILY 05/21/20 08/24/20 Unknown History hr,extended release (Inderal LA) venlafaxine 75 mg capsule,extended 75 mg PO DAILY 05/21/20 08/24/20 Unknown History release 24 hr glipizide 2.5 mg tablet, extended 2.5 mg PO DAILY 10/22/20 10/22/20 Unknown History release 24 hr metformin 1,000 mg tablet 1,000 mg PO BID 10/22/20 10/22/20 Unknown History Exam Exam Date and Time: May 21, 2022 1333 Height,Weight and Vital Signs: Height 5 ft 2 in Weight 94.6 kg Pertinent Lab Results Pertinent Lab Results: Laboratory Tests 04/22/22 05/15/22 23:59 11:52 WBC 10.9 H Hgb 13.2 Hct 40.0 Plt Count 304 D Sodium 141 Potassium 4.6 Chloride 105 Carbon Dioxide 30 H BUN 15 Creatinine 0.77 Assessment and Plan Assessment Anesthesia Assessment: Chart Reviewed Documented by User: Meron Lozano MD 05/22/22 09:01 [facility] Active Problems Active Problems: All Active Problems (Updated 04/24/22 @ 00:02 by Asuncion Trejo) Bacterial vaginosis (Acute) Vulvovaginitis sae albicans (Acute) Pre-procedure lab exam (Acute) Adenocarcinoma of cervix (Acute) Pelvic pain (Acute) Well woman exam (Acute) Transaminitis (Acute) Diabetes 1.5, managed as type 2 (Acute) Thalamic pain syndrome (Acute) Hepatic steatosis (Acute) IBS (irritable colon syndrome) (Acute) GERD (gastroesophageal reflux disease) (Acute) Increased BMI Denies CLAUDIA Past Medical History Medical History 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, managed as type 2 GERD (gastroesophageal reflux disease) Hepatic steatosis Hypertension IBS (irritable colon syndrome) Pre-diabetes Thalamic pain syndrome Transaminitis Family History Family History Father Diabetes FH: stomach cancer FH: cancer FHx: hypercholesterolemia Cancer Brother FH: stomach cancer Cancer Mother FH: depression FH: diabetes mellitus FH: cancer Maternal Uncle Cancer FH: cancer Sister Cancer Paternal Grandfather Family history of colon cancer Family history of problems with anesthesia: No Surgical History Surgical History H/O: hysterectomy (~2018) History of esophagogastroduodenoscopy (EGD) (~2017) Hx of colonoscopy (~2018) History of Problems with Anesthesia: No Social History Social History Household Members: Spouse Alcohol intake: current Alcohol intake frequency: does not drink Patient Tobacco Use Status: Former Tobacco user Tobacco use type: Cigarette Use of substances other than those prescribed or required for medical reasons: No Are you DNR?: No Advance Directives: No Advance Directives Information Provided: Yes Advance Directives on File: No Current occupational status: unemployed Meds Allergies Allergy/AdvReac Type Severity Reaction Status Date / Time oxycodone [Percocet] Allergy Mild hives Verified 05/22/22 06:39 Home Medications Medication Instructions Recorded Confirmed Last Taken Type pentosan polysulfate sodium 100 mg 100 mg PO TID 05/21/20 08/24/20 Unknown History capsule (Elmiron) propranolol 120 mg capsule,24 120 mg PO DAILY 05/21/20 08/24/20 Unknown History hr,extended release (Inderal LA) venlafaxine 75 mg capsule,extended 75 mg PO DAILY 05/21/20 08/24/20 Unknown History release 24 hr glipizide 2.5 mg tablet, extended 2.5 mg PO DAILY 10/22/20 10/22/20 Unknown History release 24 hr metformin 1,000 mg tablet 1,000 mg PO BID 10/22/20 10/22/20 Unknown History Exam Height,Weight and Vital Signs: Height 5 ft 2 in Weight 94.6 kg Vital Signs Temp Pulse Resp BP Pulse Ox O2 Del Method 05/22/22 06:39 97.0 F 75 16 114/70 97 Room Air Pertinent Lab Results Pertinent Lab Results: Laboratory Tests 04/22/22 05/15/22 23:59 11:52 WBC 10.9 H Hgb 13.2 Hct 40.0 Plt Count 304 D Sodium 141 Potassium 4.6 Chloride 105 Carbon Dioxide 30 H BUN 15 Creatinine 0.77 Lab Results 05/22/22 Range/Units 07:03 POC Glucose 143 H (60-115) mg/dL Airway Mallampati Class: II TM Dist: >3cm Neck ROM: Full Loose/Missing/Broken Teeth: Yes (Missing bottom back left) Heart: RRR Lungs: CTAB Assessment and Plan Assessment Anesthesia Assessment: Anesthesia Plan Discussed Final Anesthetic Review Family History of Problems with Anesthesia: No History of Problems with Anesthesia: No NPO: Yes ASA Class: III Final Preanesthetic Review: No Changes in Pt Med Stat, Meds/Allgs Chart Reviewed, Consent Obtained/Reviewed and Anes Risks/Benef Reviewed Patient Risk: Intermediate Procedure Risk: Low Assessment/Block/Sedation in SS: Assess/Block/Sedation-SS Anesthetic Plan Anesthetic Plan: MAC: Disposition: Standard PACU
[2022-05-22 06:32] VITALS: BMI 38.4
[2022-05-22 06:39] VITALS: BP 114/70; PULSE 75; RESP 16; TEMP 36.1; O2SAT 97
--- NOTE | 2022-05-22 06:51 | MHC.SHP ---
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, managed as type 2 GERD (gastroesophageal reflux disease) Hepatic steatosis Hypertension IBS (irritable colon syndrome) Pre-diabetes Thalamic pain syndrome Transaminitis) History of Previous Operations: Relevant previous surgery/procedure and date(s) (H/O: hysterectomy (~2018) History of esophagogastroduodenoscopy (EGD) (~2017) Hx of colonoscopy (~2017)) Allergies: Allergies Allergy/AdvReac Type Severity Reaction Status Date / Time oxycodone [Percocet] Allergy Mild hives Verified 05/22/22 06:39 Review of Systems Sugical H&P ROS: Negative: Constitution, Cardiovascular, Respiratory, Neurological, Psychiatric, Hem-Onc, Allergic/Immunologic, Gastrointestinal, Genitourinary, Musculoskeletal, Integumentary, Endocrine and Eyes/Ears/Nose/Throat Exam Surgical H&P Exam: Normal: HEENT, Normal: Heart, Normal: Lungs, Normal: Extremities, Normal: Abdomen, Normal: Skin and Normal: Neurological Plan Diagnosis/Plan: Unchanged I have reviewed the history and physical and performed a pertinent physical examination on my patient. No changes have occurred unless specified. Time Spent With Patient Time: Total time managing care of this patient today ____ minutes.
[2022-05-22] MEDS: Lactated Ringers 1,000 ML 100 ML IVCONT (07:09)
[2022-05-22 07:10] LABS: Glucose, Whole Blood 143 mg/dL (60-115)
--- NOTE | 2022-05-22 08:26 | P.OP_ITS ---
Operative Note Operative Note Date of Service: 05/22/22 Narrative: Operative Information Procedure Description: EGD, Colonoscopy Indication: reflux, IBS symptoms Anesthesia: MAC FLEXIBLE TRANSORAL UPPER GASTROINTESTINAL ENDOSCOPY AND COLONOSCOPY PROCEDURE NOTE UPPER ENDOSCOPY Consent: Indications for the procedure and potential complications of bleeding, perforation, reaction to medications and missed diagnosis were discussed with the patient and informed consent was obtained. Instrument: Olympus GIF H 190 J mid size upper endoscope Monitoring: Vital signs and clinical assessment, continuous EKG monitoring, Pulse oximetry, Carbon Dioxide monitoring and blood pressure monitoring were done throughout the procedure. Procedure: The patient was placed in the left lateral decubitis position and pre-procedure medications were administered and a bite block was placed. The endoscope was inserted into the mouth and advanced under direct vision to the third part of duodenum. A careful inspection was made as the upper endoscope was withdrawn including a retroflexed examination of the proximal stomach; Findings and interventions are described below. Findings: Larynx:normal Esophagus: GE junction at 35 cm, diaphragm hiatus at 35 cm, mild esophagitis at GEJ, bx taken Stomach: Mild erythema with food noted. Biopsies were obtained. Grade 2 flap valve on retroflexed examination of the cardia. Duodenum: Normal bulb and descending duodenum, bx taken Intervention: Biopsies as noted above COLONOSCOPY Instrument: Olympus variable stiffness pediatric scope 190L Colonoscopy Monitoring: Vital signs and clinical assessment, continuous EKG monitoring, Pulse oximetry, Carbon Dioxide monitoring and blood pressure monitoring were done throughout the procedure. Colon withdrawal time was 10 minutes. Procedure: The patient was placed in the left lateral decubitis position and pre-procedure medications were administered. After a digital rectal examination of the ano-rectum, the video colonoscope was inserted into the rectum and advanced through the colon to the cecum/TI. The colonoscope was slowly withdrawn in a retrograde panoramic fashion and the colon mucosa was carefully examined including a retroflexed view of the rectum. Findings and interventions are described below. Procedure Difficulty: moderate Findings: Terminal Ileum-not intubated Cecum:normal Ascending Colon: normal Transverse Colon -normal Descending Colon: few diverticula seen Sigmoid Colon: normal Rectum: Retroflexion with small internal hemorrhoids, grade I Anorectum - normal Colon preparation: Clinton Bowel Preparation Scale Right colon; 1 Transverse colon: 2 Left colon; 1 (0 = Unprepared colon segment with mucosa not seen due to solid stool that cannot be cleared. 1 = Portion of mucosa of the colon segment seen, but other areas of the colon segment not well seen due to staining, residual stool and/or opaque liquid. 2 = Minor amount of residual staining, small fragments of stool and/or opaque liquid, but mucosa of colon segment seen well. 3 = Entire mucosa of colon segment seen well with no residual staining, small fragments of stool or opaque liquid) Impression and Post Procedure Diagnosis: Endoscopy Findings: esophagitis gastritis retained food, may have gastroparesis Colonoscopy Findings: internal hemorrhoids diverticular disease Plan: Await Pathology results Repeat Colonoscopy in 6 months-1 year or earlier if clinically indicated, next time consider 2 d clears High fiber diet leaflet avoid straining at stool, epsom salts and sitz bath, anusol supps or cream consider gastric emptying study Above findings were reviewed with the patient and relevant handouts were provided if indicated.
[2022-05-22 08:32] VITALS: BP 92/49; PULSE 82; RESP 24; TEMP 36.1; O2SAT 99
[2022-05-22 08:47] VITALS: BP 100/60; PULSE 77; RESP 20; O2SAT 99
[2022-05-22 09:02] VITALS: BP 116/71; PULSE 86; RESP 20; TEMP 36.3; O2SAT 96
== END 2022-05-22 09:55 | disposition home or self-care (01) ==
PROVIDERS: PCP Internal Medicine; Visit Provider Internal Medicine Gastroenterology
PROC: (CPT 45378; principal; 2022-05-22 07:30)
DX: K58.1 Irritable bowel syndrome with constipation (principal); K57.30 Diverticulosis of large intestine without perforation or abscess without bleeding; K64.0 First degree hemorrhoids; R74.01 Elevation of levels of liver transaminase levels; K76.0 Fatty (change of) liver, not elsewhere classified; K21.9 Gastro-esophageal reflux disease without esophagitis; K29.50 Unspecified chronic gastritis without bleeding; K20.80 Other esophagitis without bleeding; K44.9 Diaphragmatic hernia without obstruction or gangrene; I10 Essential (primary) hypertension; E13.9 Other specified diabetes mellitus without complications; G89.0 Central pain syndrome; Z79.84 Long term (current) use of oral hypoglycemic drugs; Z79.899 Other long term (current) drug therapy; Z88.8 Allergy status to other drugs, medicaments and biological substances; Z85.41 Personal history of malignant neoplasm of cervix uteri; Z90.710 Acquired absence of both cervix and uterus; Z87.891 Personal history of nicotine dependence
CPT/HCPCS: 45378; 43239; 82947; 88305; 88342; J2765

== ENCOUNTER → 2022-06-04 10:01 | Outpatient (BNVA) | payer MEDICAID, SELFPAY | PROVIDERS: PCP Internal Medicine; Referring Provider Internal Medicine; Visit Provider Nurse Practitioner Family | DX: K29.70 Gastritis, unspecified, without bleeding (principal); K21.00 Gastro-esophageal reflux disease with esophagitis, without bleeding; K64.8 Other hemorrhoids; K57.30 Diverticulosis of large intestine without perforation or abscess without bleeding; K58.1 Irritable bowel syndrome with constipation; K59.04 Chronic idiopathic constipation; K76.0 Fatty (change of) liver, not elsewhere classified; Z98.890 Other specified postprocedural states | CPT/HCPCS: 99212 ==

== ENCOUNTER → 2022-06-13 11:16 | Outpatient (BNVA) | payer MEDICAID, SELFPAY | PROVIDERS: PCP Internal Medicine; Visit Provider Nurse Practitioner Family | DX: K58.2 Mixed irritable bowel syndrome (principal); K21.00 Gastro-esophageal reflux disease with esophagitis, without bleeding; K76.0 Fatty (change of) liver, not elsewhere classified; R74.01 Elevation of levels of liver transaminase levels | CPT/HCPCS: 99212 ==

== ENCOUNTER → 2022-08-18 12:10 | Outpatient (BNVA) | payer MEDICAID, SELFPAY | PROVIDERS: PCP Internal Medicine; Visit Provider Nurse Practitioner Family | DX: K58.2 Mixed irritable bowel syndrome (principal); K59.1 Functional diarrhea; K21.00 Gastro-esophageal reflux disease with esophagitis, without bleeding; R74.01 Elevation of levels of liver transaminase levels | CPT/HCPCS: 99212 ==

== ENCOUNTER → 2022-10-27 11:07 | Outpatient (BNVA) | payer MEDICAID, SELFPAY | PROVIDERS: PCP Internal Medicine; Referring Provider Internal Medicine; Visit Provider Nurse Practitioner Family | DX: K21.00 Gastro-esophageal reflux disease with esophagitis, without bleeding (principal); K42.9 Umbilical hernia without obstruction or gangrene; R10.13 Epigastric pain; R13.19 Other dysphagia; R74.01 Elevation of levels of liver transaminase levels | CPT/HCPCS: 99212 ==

== ENCOUNTER → 2022-11-19 07:43 | Outpatient (REF) | payer MEDICAID, SELFPAY | LOC: HO.NUCMED 07:43 | PROVIDERS: Visit Provider Nurse Practitioner Family | DX: K21.9 Gastro-esophageal reflux disease without esophagitis (principal); R10.13 Epigastric pain | CPT/HCPCS: 78264; A9541 ==

== ENCOUNTER 2022-12-03 10:08 | Outpatient (AMB) | payer MEDICAID, SELFPAY ==
[2022-12-03 10:19] VITALS: BP 113/68; PULSE 86; BMI 37.1
--- NOTE | 2022-12-03 10:19 | MHC.OFFVIS ---
Intake Vital Signs 12/03/22 10:19 Height 5 ft 2 in Weight 203 lb BMI 37.1 BP 113/68 Blood Pressure Location Rt brachial Position Sitting Pulse 86 Intake Visit Reasons: umbilical hernia Intake Note: This patient presents for an assessment for an umbilical hernia. Patient c/o; umbilical region, discomfort, constipation and diarrhea. Instrument And Control Service Person Required: No Accompanied by: Self / Same As Patient Allergies oxycodone [Percocet] Allergy (Mild, Verified 12/03/22 10:27) hives Medication List - Last Reconciled 12/03/22 by Nicolas Hector MD bisacodyl (Dulcolax (bisacodyl)) 10 mg (2 x 5 mg) PO BEDTIME cholecalciferol (vitamin D3) 50 mcg PO DAILY cholestyramine-aspartame 4 gram (Cholestyramine Light) 4 grams PO QIDACHS clotrimazole-betamethasone 1-0.05 % 1 appl topical BID 5 days docusate sodium 100 mg PO BEDTIME esomeprazole magnesium (Nexium) 40 mg PO DAILY glipizide ER 2.5 mg PO DAILY lidocaine-prilocaine 2.5-2.5 % 1 appl topical BID 30 days loperamide 2 mg PO Q6H PRN metformin 1,000 mg PO BID methylcellulose (laxative) (Citrucel) 500 mg PO DAILY ondansetron 4 mg PO Q6H PRN pentosan polysulfate sodium (Elmiron) 100 mg PO TID propranolol ER (Inderal LA) 120 mg PO DAILY sucralfate 1 g PO BEDTIME venlafaxine ER 75 mg PO DAILY HPI umbilical hernia HPI Details 42-year-old female referred for an umbilical hernia. She has noticed this lump on her umbilicus for about 6 months. She feels that this has been creasing in size. She describes worsening discomfort. She has had multiple abdominal surgeries in the past. She had a laparoscopic cholecystectomy in 1997. She had hysterectomy about 6 years ago for uterine cancer. She also had bladder surgery what she describes as stress incontinence about 3 months ago. 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, managed as type 2 GERD (gastroesophageal reflux disease) Hepatic steatosis Hypertension IBS (irritable colon syndrome) Pre-diabetes Thalamic pain syndrome Transaminitis Umbilical hernia Surgical History H/O: hysterectomy (~2019) History of esophagogastroduodenoscopy (EGD) (~2018) Hx of colonoscopy (~2018) Family History Father Diabetes FH: stomach cancer FH: cancer FHx: hypercholesterolemia Cancer Brother FH: stomach cancer Cancer Mother FH: depression FH: diabetes mellitus FH: cancer Maternal Uncle Cancer FH: cancer Sister Cancer Paternal Grandfather Family history of colon cancer Social History Household Members: Spouse Alcohol intake: current Alcohol intake frequency: does not drink Patient Tobacco Use Status: Former Tobacco user Tobacco use type: Cigarette Current occupational status: unemployed Female Reproductive History Menstrual Age of Menarche: 11 Review of Systems Const Denies chills and Denies fever(s) Card Denies chest pain, Denies dyspnea and Denies dyspnea on exertion Resp Denies cough, Denies dyspnea and Denies dyspnea on exertion GI Denies hematochezia and Denies change in bowel habits Denies hematuria Musc Denies back pain and Denies limited range of motion Neuro Denies focal weakness and Denies convulsions Psych Denies depression and Denies mood swings Physical Exam Vital Signs: Last Vital Signs Pulse 86 12/03/22 10:19 BP 113/68 12/03/22 10:19 BMI result Body Mass Index 37.1 Const General: comfortable and no acute distress Orientation/consciousness: patient oriented x3 Neck Neck: Yes no lymphadenopathy Resp Auscultation: clear to auscultation bilaterally Cardio Rhythm: regular rhythm GI Other: Umbilical hernia, about 2.5 cm, partially reducible, mildly tender Palpation (GI): Soft to palpation, nontender and no guarding Neuro General: patient oriented x3 Assessment & Plan Assessment & Plan (1) Umbilical hernia: Code(s): K42.9 - Umbilical hernia without obstruction or gangrene Plan: She has an umbilical hernia as described above. She wants this repaired. I explained to her the technique of repair with possible mesh placement. I reviewed the risks including but not limited to bleeding, infections, bowel injury, poor healing, inherent risks of anesthesia, as well as the benefits and alternatives. She understands and wants to proceed. I also explained to her what to expect postoperatively. Coding Level of Care Code New Pt Level 3 (92884) Diagnoses Umbilical hernia K42.9
== END 2022-12-03 10:51 | disposition home or self-care (01) ==
PROVIDERS: PCP Internal Medicine; Visit Provider Surgery
DX: K42.9 Umbilical hernia without obstruction or gangrene (principal)
CPT/HCPCS: 99203

== ENCOUNTER → 2022-12-03 10:08 | Outpatient (BNVA) | payer MEDICAID, SELFPAY | PROVIDERS: PCP Internal Medicine; Visit Provider Surgery | DX: K42.9 Umbilical hernia without obstruction or gangrene (principal) | CPT/HCPCS: 99202 ==

== ENCOUNTER 2022-12-15 10:43 | Emergency (ER) | payer MEDICAID, SELFPAY ==
[2022-12-15 10:53] VITALS: BP 106/69; PULSE 76; RESP 20; TEMP 35.6; O2SAT 100; BMI 37.7
== END 2022-12-15 16:48 | disposition left against medical advice (07) ==
PROVIDERS: Emergency Provider Emergency Medicine; PCP Internal Medicine
DX: M54.42 Lumbago with sciatica, left side (principal); M54.41 Lumbago with sciatica, right side
CPT/HCPCS: 99281

== ENCOUNTER 2023-01-07 10:06 | Outpatient (REF) | payer MEDICAID, SELFPAY ==
[2023-01-07 10:17] LABS: MANUAL DIFF FLAG NO
[2023-01-07 10:40] LABS: Basophils Percent Auto 0.3 % (0-2); Eosinophils Absolute Auto 0.1 X10*3/uL (0.0-0.4); Hematocrit 38.3 % (37.0-47.0); Hemoglobin 12.5 g/dl (12.0-16.0); Imm Gran Abs Auto 0.02 X10*3/uL (0.00-0.03); Imm Gran Pct Auto 0.3 % (0.0-0.4); Lymphocytes Absolute Auto 2.6 X10*3/uL (1.2-4.9); Lymphocytes Percent Auto 37.2 % (20-40); Mean Corpuscular HGB Conc 32.6 g/dl (31.0-35.0); Mean Corpuscular Hemoglobin 29.6 pg (27.0-33.0); Mean Corpuscular Volume 90.5 fL (80.0-98.0); Mean Platelet Volume 9.4 fL (9.4-12.3); Monocytes Absolute Auto 0.4 X10*3/uL (0.1-1.2); Monocytes Percent Auto 5.8 % (2-11); Neutrophils Absolute Auto 3.8 x10*3/uL (2.0-8.3); Neutrophils Percent Auto 55.4 % (45-73); Platelet Count 242 X10*3/uL (160-400); Red Blood Count 4.23 X10*6/uL (4.20-5.50); Red Cell Distribution Width 12.3 % (11.0-16.0); White Blood Count 6.9 X10*3/uL (4.8-10.8)
[2023-01-07 11:25] LABS: Alanine Aminotransferase 42 U/L (0-31); Alkaline Phosphatase 87 U/L (39-117); Anion Gap 13 (12-20); Aspartate Amino Transferase 25 U/L (5-31); Bilirubin Total 0.6 mg/dL (0.0-1.0); Blood Urea Nitrogen 10 mg/dL (9-16); Calcium 9.5 mg/dL (8.4-10.2); Carbon Dioxide 26 mmol/L (22-29); Chloride 105 mmol/L (96-108); Cholesterol 137 mg/dL (<200); Estimated Glomerular Filt Rate > 60; Glucose Random 174 mg/dL (60-115); HDL Cholesterol 38 mg/dL (>40); LDL Cholesterol Calculated 84 mg/dL (<100); Potassium 4.1 mmol/L (3.3-5.1); Sodium 140 mmol/L (135-145); Total Protein 7.9 g/dL (6.5-8.0); Triglycerides 76 mg/dL (<150)
[2023-01-07 11:42] LABS: Thyroid Stimulating Hormone 2.05 uIU/mL (0.32-4.0)
== END 2023-01-07 10:07 | disposition home or self-care (01) ==
LOC: HO.LAB 10:06
PROVIDERS: PCP Internal Medicine; Visit Provider Internal Medicine
DX: E11.9 Type 2 diabetes mellitus without complications (principal); E78.00 Pure hypercholesterolemia, unspecified; I10 Essential (primary) hypertension; L30.4 Erythema intertrigo
CPT/HCPCS: 36415; 80053; 80061; 84443; 85025

== ENCOUNTER 2023-01-08 15:08 | Outpatient (REF) | payer MEDICAID, SELFPAY ==
[2023-01-08 16:23] LABS: Creatinine Urine 90.22 mg/dL; Microalbumin Urine < 5.0 mg/L
== END 2023-01-08 15:09 | disposition home or self-care (01) ==
LOC: HO.LNP 15:08
PROVIDERS: Visit Provider Internal Medicine
DX: E11.9 Type 2 diabetes mellitus without complications (principal); E78.00 Pure hypercholesterolemia, unspecified; I10 Essential (primary) hypertension; L30.4 Erythema intertrigo
CPT/HCPCS: 82043

== ENCOUNTER 2023-02-03 10:30 | Emergency (ER) | payer MEDICAID, SELFPAY ==
--- NOTE | ~2023-02-03 | XR_ITS ---
EXAMINATION: XR ABDOMEN KUB CLINICAL INDICATION: Pain COMPARISON: None available. TECHNIQUE: AP view of the abdomen. FINDINGS: The bowel gas pattern is normal with no evidence of ileus or obstruction. There is retained stool within the right, transverse and descending colon. There are surgical clips in the right upper quadrant and right pelvis. No unusual soft tissue calcifications are noted. The bones are unremarkable. XR/XR KUB IMPRESSION: Nonspecific bowel gas pattern. Retained stool.
--- NOTE | ~2023-02-03 | US_ITS ---
EXAMINATION: US PELVIS CLINICAL INFORMATION: Pain. Evaluate ovaries. History of partial hysterectomy. COMPARISON: Previous CT of the abdomen and pelvis most recent April 2022 and pelvic ultrasound April 2020 TECHNIQUE: Transabdominal and transvaginal pelvic ultrasound. Transvaginal exam was performed for better visualization of the ovaries. FINDINGS: Patient appears post complete hysterectomy. Vaginal cuff is normal. The ovaries are not seen. No adnexal mass. No fluid in the pelvis. US/US pelvic and transvaginal IMPRESSION: Limited exam. Post hysterectomy. Ovaries not seen.
[2023-02-03 10:46] VITALS: BP 139/64; PULSE 97; RESP 14; TEMP 36.9; O2SAT 98; BMI 36.7
[2023-02-03 11:02] LABS: MANUAL DIFF FLAG NO
[2023-02-03 11:07] LABS: Basophils Percent Auto 0.5 % (0-2); Eosinophils Percent Auto 0.3 % (0-4); Hematocrit 36.5 % (37.0-47.0); Hemoglobin 11.9 g/dl (12.0-16.0); Imm Gran Abs Auto 0.01 X10*3/uL (0.00-0.03); Imm Gran Pct Auto 0.2 % (0.0-0.4); Lymphocytes Absolute Auto 2.2 X10*3/uL (1.2-4.9); Lymphocytes Percent Auto 37.3 % (20-40); Mean Corpuscular HGB Conc 32.6 g/dl (31.0-35.0); Mean Corpuscular Hemoglobin 29.9 pg (27.0-33.0); Mean Corpuscular Volume 91.7 fL (80.0-98.0); Mean Platelet Volume 9.5 fL (9.4-12.3); Monocytes Absolute Auto 0.4 X10*3/uL (0.1-1.2); Neutrophils Absolute Auto 3.3 x10*3/uL (2.0-8.3); Neutrophils Percent Auto 55.7 % (45-73); Platelet Count 223 X10*3/uL (160-400); Red Blood Count 3.98 X10*6/uL (4.20-5.50); Red Cell Distribution Width 12.5 % (11.0-16.0); White Blood Count 5.9 X10*3/uL (4.8-10.8)
[2023-02-03 11:17] LABS: Anion Gap 10 (12-20); Blood Urea Nitrogen 12 mg/dL (9-16); Calcium 9.3 mg/dL (8.4-10.2); Carbon Dioxide 25 mmol/L (22-29); Chloride 107 mmol/L (96-108); Creatinine Clr Calc Pharmacy 105.7; Estimated Glomerular Filt Rate > 60; Glucose Random 154 mg/dL (60-115); Potassium 3.9 mmol/L (3.3-5.1); Sodium 138 mmol/L (135-145)
[2023-02-03 13:59] LABS: Appearance Urine Clear; Color Urine Yellow; Glucose Urine UA Negative (Negative); Leukocyte Esterase Urine Negative (Negative); Nitrite Urine Negative (Negative); PH 5.5 (5.0-9.0); Specific Gravity - Urine >= 1.030 (1.005-1.025); Urine Blood Negative (Negative); Urine Ketones 15 mg/dL (Negative); Urine Protein Negative (Neg-Trace)
--- NOTE | 2023-02-03 16:11 | PC.NURSE ---
Assumed care of pt at 1605. A & O x 3. respiration even and unlabored. c/o pain in lower abdomen, LLQ is worse than RLQ. Reports last BM yesterday, formed. Reported vaginal discharge, yellow, clumpy, and foul. Reported hx of recurrent yeast infections last year. Significant other at bedside.
[2023-02-03 16:17] VITALS: BP 106/52; PULSE 109; RESP 18; TEMP 36.7; O2SAT 98
--- NOTE | 2023-02-03 16:20 | ED.GENADULT ---
HPI - General Adult General Chief complaint: Abdominal Pain Stated complaint: Low Abdominal Pain Time Seen by Provider: 02/03/23 16:07 Source: patient, RN notes reviewed and old records reviewed Mode of arrival: ambulatory Limitations: no limitations History of Present Illness HPI narrative: 42-year-old female presents for evaluation of lower abdominal Patient reports lower abdominal pain for the last week or so She reports ?it feels like it is my ovaries. ? She reports a history of partial hysterectomy 5 years ago Denies any history of similar episodes of pain in the past Denies any concern for sexually transmitted infections. She reports that she has some pain with urination Her last bowel movement was yesterday and was ?normal for me. She rates her pain as 9/10 Related Data Home Medications Medication Instructions Recorded Confirmed pentosan polysulfate sodium 100 mg 100 mg PO TID 05/21/20 12/18/22 capsule (Elmiron) propranolol 120 mg capsule,24 120 mg PO DAILY 05/21/20 12/18/22 hr,extended release (Inderal LA) venlafaxine 75 mg capsule,extended 75 mg PO DAILY 05/21/20 12/18/22 release 24 hr glipizide 2.5 mg tablet, extended 2.5 mg PO DAILY 10/22/20 12/18/22 release 24 hr metformin 1,000 mg tablet 1,000 mg PO BID 10/22/20 12/18/22 Previous Rx's Medication Instructions Recorded lidocaine-prilocaine 2.5 %-2.5 % 1 appl topical BID 30 days #30 04/19/20 topical cream grams cholecalciferol (vitamin D3) 50 50 mcg PO DAILY #30 caps 11/27/20 mcg (2,000 unit) capsule docusate sodium 100 mg capsule 100 mg PO BEDTIME #90 caps 08/05/21 clotrimazole-betamethasone 1 1 appl topical BID 5 days #45 grams 01/28/22 %-0.05 % topical cream ondansetron 4 mg disintegrating 4 mg PO Q6H PRN nausea and 04/23/22 tablet vomiting #14 tabs methylcellulose (laxative) 500 mg 500 mg PO DAILY #30 tabs 06/04/22 tablet (Citrucel) cholestyramine-aspartame 4 gram 4 g PO QIDACHS #239.4 grams 06/13/22 oral powder (Cholestyramine Light) bisacodyl 5 mg tablet,delayed 10 mg (2 x 5 mg) PO BEDTIME #180 10/27/22 release (Dulcolax (bisacodyl)) tabs esomeprazole magnesium 40 mg 40 mg PO DAILY #30 caps 10/27/22 capsule,delayed release (Nexium) loperamide 2 mg capsule 2 mg PO Q6H PRN loose stool #20 10/27/22 caps sucralfate 1 gram tablet 1 g PO BEDTIME #30 tabs 10/27/22 magnesium citrate 300 ml PO DAILY PRN constipation 02/03/23 #296 mL polyethylene glycol 3350 17 17 g PO DAILY PRN constipation 02/03/23 gram/dose oral powder (Miralax) #238 grams Allergies Allergy/AdvReac Type Severity Reaction Status Date / Time oxycodone [Percocet] Allergy Mild hives Verified 12/03/22 10:27 Review of Systems Constitutional: Constitutional: Denies chills and Denies fever(s) Cardiovascular: Cardiovascular: Denies chest pain and Denies dyspnea Respiratory: Respiratory: Denies dyspnea Gastrointestinal: Gastrointestinal: Reports abdominal pain, Denies change in stool character, Denies coffee ground emesis, Denies nausea and Denies vomiting Genitourinary: Genitourinary: Reports urinary frequency, Reports difficulty voiding, Reports pelvic pain and Denies flank pain Musculoskeletal: Musculoskeletal: Denies back pain [facility] Past Medical History Medical History (Updated 02/03/23 @ 18:21 by Harvey Domingo) Umbilical hernia Adenocarcinoma of cervix Transaminitis Diabetes 1.5, 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 Hepatic steatosis IBS (irritable colon syndrome) GERD (gastroesophageal reflux disease) Hypertension Pre-diabetes Surgical History (Updated 12/18/22 @ 13:22 by Dana Alegre RN) Hx of colonoscopy (~2018) History of esophagogastroduodenoscopy (EGD) (~2018) H/O: hysterectomy (~2019) Family History Family History Father Diabetes FH: stomach cancer FH: cancer FHx: hypercholesterolemia Cancer Brother FH: stomach cancer Cancer Mother FH: depression FH: diabetes mellitus FH: cancer Maternal Uncle Cancer FH: cancer Sister Cancer Paternal Grandfather Family history of colon cancer Social History Social History Household Members: Spouse Alcohol intake: current Alcohol intake frequency: does not drink Patient Tobacco Use Status: Former Tobacco user Tobacco use type: Cigarette Use of substances other than those prescribed or required for medical reasons: No Advance Directives: No Current occupational status: unemployed Physical Exam ED Vital Signs: Vital Signs - 24 hr 02/03/23 10:46 02/03/23 16:17 Temperature 98.4 F 98.0 F Pulse Rate 97 109 H Respiratory Rate 14 18 Blood Pressure 139/64 106/52 L Pulse Oximetry 98 98 Oxygen Delivery Method Room Air Room Air BMI result Body Mass Index 36.7 Const General: healthy appearing, comfortable, no acute distress, alert and awake Nutritional Appearance: well nourished Orientation/consciousness: patient oriented x3 HENMT Head: Yes normocephalic and Yes atraumatic Eyes Eyelids: Yes eyelids normal Conjunctivae: conjunctivae normal Sclerae: sclerae normal Corneas: corneas normal Pupils: Equal, round and reactive pupils present EOM: EOMs intact bilaterally Neck Neck: Yes full ROM Resp Effort & Inspection: normal respiratory effort, able to speak in complete sentences and not labored GI Inspection: No distended Palpation (GI): Soft to palpation, not firm, Tenderness to palpation present (GI) in the LLQ, in the RLQ and suprapubicly, Guarding due to palpation present (GI) in the RLQ and not rigid Auscultation: normoactive bowel sounds Skin General skin exam: elasticity normal Neuro General: patient oriented x3 Cranial nerves: Yes Equal, round and reactive pupils present and Yes Bilaterally intact EOM present Cognition (Neuro): normal cognition Extrem Other: Moving all extremities well without any obvious deformities Course Reevaluation(s) Reevaluation #1: Patient's ultrasound does not show any evidence of uterus and also reports that the ovaries were not seen. Her ultrasound of his the patient had a complete hysterectomy. The patient reports that she is adamant they told her they left the ovaries in. Given this discrepancy I did offer his CT imaging with the patient declines. I do not not feel it is essential to be done today. The patient will follow-up with her OBGYN regarding the hysterectomy. In the meantime she now states that her symptoms feel consistent with when she had bacterial vaginosis asked. She would like to be treated for this. She declines pelvic examination at this time. She will be treated for this as well as the constipation and should be discharged home Time: 18:17 Medications Administered Discontinued Medications Generic Name Dose Route Start Last Admin Trade Name Ciara PRN Reason Stop Dose Admin Ketorolac Tromethamine 30 mg 02/03/23 16:18 02/03/23 16:25 Ketorolac Tromethamine 30 Mg/Ml Vial IM 02/03/23 16:19 30 mg ONCE ONE Administration Medical Decision Making Medical Decision Making [facility] Narrative: 42-year-old female presents for evaluation of lower abdominal/pelvic pain. Her symptoms started 1 week ago. Reports some associated dysuria which started more recently. Her urine did not show any sign of infection/UTI. She denies any concern for sexually transmitted infections. Patient is tender in the right lower quadrant blood low suspicion for appendicitis as her pain isn't present for 1 week, denies any GI symptoms, no fevers, chills and she has no white count. Plan for ultrasound of the ovaries and KUB to evaluate for constipation. Patient medicated with Toradol Differential Diagnosis Differential Diagnoses: The differential diagnosis associated with the presentation includes Ovarian cyst Constipation Ovarian torsion less likely Acute appendicitis UTI Lab Data [facility] Lab Attestation statement: I reviewed the patient's lab results. No leukocytosis with a white count 5.9. Patient has very mild anemia consistent with her recent baseline. No electrolyte abnormalities. Glucose was just above normal at 154 but this was a random glucose, not fasting. No evidence of DKA 02/03/23 10:59 02/03/23 10:59 Labs: Lab Results 02/03/23 02/03/23 Range/Units 10:59 13:50 WBC 5.9 (4.8-10.8) X10*3/uL RBC 3.98 L (4.20-5.50) X10*6/uL Hgb 11.9 L (12.0-16.0) g/dl Hct 36.5 L (37.0-47.0) % MCV 91.7 (80.0-98.0) fL MCH 29.9 (27.0-33.0) pg MCHC 32.6 (31.0-35.0) g/dl RDW 12.5 (11.0-16.0) % Plt Count 223 (160-400) X10*3/uL MPV 9.5 (9.4-12.3) fL Immature Gran % (Auto) 0.2 (0.0-0.4) % Neut % (Auto) 55.7 (45-73) % Lymph % (Auto) 37.3 (20-40) % Whiteside % (Auto) 6.0 (2-11) % Eos % (Auto) 0.3 (0-4) % Baso % (Auto) 0.5 (0-2) % Lymph # (Auto) 2.2 (1.2-4.9) X10*3/uL Whiteside # (Auto) 0.4 (0.1-1.2) X10*3/uL Eos # (Auto) 0.0 (0.0-0.4) X10*3/uL Baso # (Auto) 0.0 (0.0-0.2) X10*3/uL Abs Immat Gran (auto) 0.01 (0.00-0.03) X10*3/uL Absolute Neuts (auto) 3.3 (2.0-8.3) x10*3/uL Absolute Nucleated RBC 0.000 (0.0-0.012) X10*3/uL Nucleated RBC % (auto) 0.0 (0.0-0.2) /100WBC Sodium 138 (135-145) mmol/L Potassium 3.9 (3.3-5.1) mmol/L Chloride 107 (96-108) mmol/L Carbon Dioxide 25 (22-29) mmol/L Anion Gap 10 L (12-20) BUN 12 (9-16) mg/dL Creatinine 0.72 (0.5-1.4) mg/dL Estim Creat Clear Calc 105.7 Estimated GFR > 60 Random Glucose 154 H (60-115) mg/dL Calcium 9.3 (8.4-10.2) mg/dL Urine Color Yellow Urine Appearance Clear Urine pH 5.5 (5.0-9.0) Ur Specific [place] >= 1.030 H (1.005-1.025) Urine Protein Negative (Neg-Trace) mg/dL Urine Glucose (UA) Negative (Negative) mg/dL Urine Ketones 15 (Negative) mg/dL Urine Blood Negative (Negative) Urine Nitrite Negative (Negative) Ur Leukocyte Esterase Negative (Negative) Radiology Impression Discussion of test interpretation with radiology: I have reviewed the radiologist's reading. (Ovary is not seen) Prescription Management I considered prescription management with: Pain Medication Discharge Plan Discharge Clinical Impression: Pelvic pain, Constipation Patient Disposition: Home, Self-Care Instructions: Constipation (ED) Additional Instructions: Your ultrasound was unable to visualize your ovaries. Your x-ray shows that you are moderately constipated Take MiraLax every day for the next 2 weeks Increase water and fiber intake Take magnesium citrate simple type bowel movements You were also given an antibiotic to treat bacterial vaginosis Prescriptions: New polyethylene glycol 3350 [Miralax] 17 gram/dose powder 17 g PO DAILY PRN (Reason: constipation) Qty: 238 0RF magnesium citrate Solution 300 ml PO DAILY PRN (Reason: constipation) Qty: 296 0RF No Action lidocaine-prilocaine 2.5-2.5 % cream 1 appl topical BID 30 Days Qty: 30 0RF Rx Instructions: Apply lightly to right upper abdomen and back topically cholecalciferol (vitamin D3) 50 mcg (2,000 unit) capsule 50 mcg PO DAILY Qty: 30 3RF ondansetron 4 mg tablet,disintegrating 4 mg PO Q6H PRN (Reason: nausea and vomiting) Qty: 14 0RF venlafaxine 75 mg capsule,extended release 24hr 75 mg PO DAILY propranolol [Inderal LA] 120 mg capsule,extended release 24 hr 120 mg PO DAILY Elmiron 100 mg capsule 100 mg PO TID metformin 1,000 mg tablet 1,000 mg PO BID glipizide 2.5 mg tablet extended release 24hr 2.5 mg PO DAILY docusate sodium 100 mg capsule 100 mg PO BEDTIME Qty: 90 3RF clotrimazole-betamethasone 1-0.05 % cream 1 appl topical BID 5 Days Qty: 45 0RF Cholestyramine Light 4 gram powder 4 g PO QIDACHS Qty: 239.4 3RF Rx Instructions: no meds 1 hr before/4-6 hr after dose Citrucel 500 mg tablet 500 mg PO DAILY Qty: 30 2RF Rx Instructions: take it with full glass of water bisacodyl [Dulcolax (bisacodyl)] 5 mg tablet,delayed release (DR/EC) 10 mg PO BEDTIME Qty: 180 4RF esomeprazole magnesium [Nexium] 40 mg capsule,delayed release(DR/EC) 40 mg PO DAILY Qty: 30 5RF loperamide 2 mg capsule 2 mg PO Q6H PRN (Reason: loose stool) Qty: 20 0RF sucralfate 1 gram tablet 1 g PO BEDTIME Qty: 30 4RF
[2023-02-03] MEDS: Ketorolac Tromethamine 30 MG/ML VIAL IM (16:25)
--- NOTE | 2023-02-03 17:59 | PC.NURSE ---
pt taken to ultra sound
[2023-02-03] MEDS: metroNIDAZOLE 500 MG TABLET 2000 MG PO (18:22)
[2023-02-03] MEDS: Ondansetron ODT 4 MG TAB.RAPDIS TRANSLINGU (18:23)
== END 2023-02-03 18:30 | disposition home or self-care (01) ==
PROVIDERS: Emergency Provider Internal Medicine; PCP Internal Medicine
DX: R10.2 Pelvic and perineal pain (principal); K59.00 Constipation, unspecified; E13.9 Other specified diabetes mellitus without complications; I10 Essential (primary) hypertension; Z87.891 Personal history of nicotine dependence; Z79.84 Long term (current) use of oral hypoglycemic drugs; Z79.899 Other long term (current) drug therapy
CPT/HCPCS: 36415; 74018; 76830; 76856; 80048; 81003; 85025; 96372; 99284; J1885

== ENCOUNTER 2023-03-03 11:05 | Outpatient (REF) | payer MEDICAID, SELFPAY | END 2023-03-03 11:06 | disposition home or self-care (01) | LOC: HO.MAMMO 11:05 | PROVIDERS: PCP Internal Medicine; Visit Provider Internal Medicine | DX: Z12.31 Encounter for screening mammogram for malignant neoplasm of breast (principal) | CPT/HCPCS: 77063; 77067 ==

== ENCOUNTER → 2023-03-03 11:15 | Outpatient (BNV) | payer MEDICAID, SELFPAY | PROVIDERS: PCP Internal Medicine; Visit Provider Radiology Diagnostic Radiology | DX: Z12.31 Encounter for screening mammogram for malignant neoplasm of breast (principal) | CPT/HCPCS: 77063; 77067 ==

== ENCOUNTER 2023-03-04 14:00 | Outpatient (REF) | payer MEDICAID, SELFPAY ==
[2023-03-06 22:48] LABS: HPV mRNA E6/E7 rflx Not Detected (Not Detected)
== END 2023-03-04 14:01 | disposition home or self-care (01) ==
LOC: HO.LNP 14:00
PROVIDERS: PCP Internal Medicine; Visit Provider Obstetrics & Gynecology
DX: Z01.411 Encounter for gynecological examination (general) (routine) with abnormal findings (principal); R35.0 Frequency of micturition; Z11.51 Encounter for screening for human papillomavirus (HPV)
CPT/HCPCS: 81002; 87086; 87147; 87624; 88142; 99396

== ENCOUNTER 2023-03-04 14:00 | Outpatient (AMB) | payer MEDICAID, SELFPAY ==
[2023-03-04 14:24] VITALS: BP 120/82; BMI 36.6
--- NOTE | 2023-03-04 14:24 | MHC.OFFVIS ---
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 Complaining of urinary frequency last few days, no dysuria. The patient underwent the radical hysterectomy for stage I A adenocarcinoma. CT scan done in 01/06 showed a 6 mm inguinal lymph node, repeat CT scan was within normal, the patient followed up with Dr. Kang at [facility] who recommended no indication for any additional imaging and or biopsy. 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 Hepatic steatosis IBS (irritable colon syndrome) GERD (gastroesophageal reflux disease) Hypertension Pre-diabetes Surgical History Hx of colonoscopy (~2017) History of esophagogastroduodenoscopy (EGD) (~2017) H/O: hysterectomy (~2018) Family History Father Diabetes FH: stomach cancer FH: cancer FHx: hypercholesterolemia Cancer Brother FH: stomach cancer Cancer Mother FH: depression FH: diabetes mellitus FH: cancer Maternal Uncle Cancer FH: cancer Sister Cancer Paternal Grandfather Family history of colon cancer Social History Household Members: Spouse Alcohol intake: current Alcohol intake frequency: does not drink Patient Tobacco Use Status: Former Tobacco user Tobacco use type: Cigarette Current occupational status: unemployed Sexual orientation: Straight/Heterosexual Gender identity: Female Female Reproductive History Menstrual Age of Menarche: 11 Menopause type: surgical Total pregnancies: 5 Full term: 3 Number of Living Children: 3 Ab spontaneous: 2 Review of Systems Const All systems reviewed & are unremarkable except as noted in HPI and below Card Reports as per HPI and Reports no additional complaints Resp Reports as per HPI and Reports no additional complaints GI Reports as per HPI and Reports no additional complaints Reports as per HPI Physical Exam Const General: cooperative, healthy appearing and comfortable General: Yes no CVA tenderness External Female Exam: normal external appearance and normal appearance of the urethra Speculum Exam - Vagina: normal appearance of the vagina, normal palpation, no lesions and no masses Bimanual exam- vagina & uterus: normal bimanual exam, normal palpation and uterus absent Bimanual Exam- Adnexa, other: normal adnexae Back/Spine/Pelvis Back: no CVA tenderness Assessment & Plan Assessment & Plan (1) Well woman exam: Comment: History of cyst adenoma CA of the cervix stage I A1 status post radical hysterectomy in 2019 Code(s): Z01.419 - Encounter for gynecological examination (general) (routine) without abnormal findings Plan: Vaginal Cotesting done. Mammogram done, report still pending. Counseled the patient about the recommended dietary allowance of 1000 mg of Calcium & 600 IU of vitamin D. The patient was instructed to perform monthly self-breast exams and to schedule an annual exam in a year; The patient has an appointment with GI for repeat screening colonoscopy All questions answered and the patient verbalized understanding. Instructed the patient to schedule annual exam in a year (2) Urinary frequency: Code(s): R35.0 - Frequency of micturition Plan: Urine dip was positive for leukocyte negative for microscopic hematuria, will send urine culture will treat if positive. Instructions given the patient to call if symptoms persist or worsen, fever above 100.4 flank pain . All questions answered, the patient verbalized understanding Coding Level of Care Code Est Pt Prev Care 40-64y(37482) Diagnoses Well woman exam Z01.419 Urinary frequency R35.0
== END 2023-03-04 14:47 | disposition home or self-care (01) ==
PROVIDERS: PCP Internal Medicine; Visit Provider Obstetrics & Gynecology
DX: Z01.419 Encounter for gynecological examination (general) (routine) without abnormal findings (principal); R35.0 Frequency of micturition
CPT/HCPCS: 99396

== ENCOUNTER 2023-03-23 13:12 | Outpatient (REF) | payer MEDICAID, SELFPAY ==
[2023-03-23 13:52] LABS: Estimated Average Glucose 114 mg/dL; Hemoglobin A1c % 5.6 % (<6.0)
[2023-03-23 14:19] LABS: Alanine Aminotransferase 38 U/L (0-31); Albumin Level 4.1 g/dL (3.5-5.0); Alkaline Phosphatase 83 U/L (39-117); Anion Gap 12 (12-20); Aspartate Amino Transferase 28 U/L (5-31); Bilirubin Total 0.4 mg/dL (0.0-1.0); Blood Urea Nitrogen 9 mg/dL (9-16); Calcium 9.5 mg/dL (8.4-10.2); Carbon Dioxide 27 mmol/L (22-29); Chloride 106 mmol/L (96-108); Cholesterol 150 mg/dL (<200); Estimated Glomerular Filt Rate > 60; Glucose Random 123 mg/dL (60-115); HDL Cholesterol 45 mg/dL (>40); LDL Cholesterol Calculated 88 mg/dL (<100); Potassium 3.9 mmol/L (3.3-5.1); Sodium 141 mmol/L (135-145); Triglycerides 89 mg/dL (<150)
== END 2023-03-23 13:13 | disposition home or self-care (01) ==
LOC: HO.LAB 13:12
PROVIDERS: PCP Internal Medicine; Visit Provider Internal Medicine
DX: Z00.00 Encounter for general adult medical examination without abnormal findings (principal); E11.65 Type 2 diabetes mellitus with hyperglycemia; E78.00 Pure hypercholesterolemia, unspecified; I10 Essential (primary) hypertension
CPT/HCPCS: 36415; 80053; 80061; 83036

== ENCOUNTER 2023-04-14 07:57 | Emergency (ER) | payer MEDICAID, SELFPAY ==
[2023-04-14 08:09] VITALS: BP 109/61; PULSE 90; RESP 18; TEMP 36.8; O2SAT 95; BMI 37.8
[2023-04-14 08:30] LABS: IDNOW Serial# 08D9AD1C; Strep A Nucleic Acid Negative (Negative)
[2023-04-14 08:49] LABS: COVID-19 Test Negative (Negative); IDNOW Serial# BCCEAD1C
[2023-04-14 08:50] LABS: IDNOW Serial# 9DB6401D; Influenza A Negative (Negative); Influenza B2 Negative (Negative)
--- NOTE | 2023-04-14 09:02 | ED_ITS ---
HPI - General Adult General Chief complaint: Upper Respiratory Symptoms Stated complaint: ? Bronchitis Time Seen by Provider: 04/14/23 09:02 Source: patient Mode of arrival: ambulatory Limitations: no limitations History of Present Illness HPI narrative: Patient is a 42-year-old female with history of DM presenting to the emergency department with complaint of shortness of breath, nonproductive cough, headaches, sore throat since Thursday. Denies fevers. Denies ear pain. Has not used any [id number] medications. Reports that [id number] who she was recently around has been sick with similar symptoms. complaint: Shortness of breath Onset (ago): day(s) Relieving factors: none Exacerbating factors: movement Associated symptoms: cough Treatments prior to arrival: none Related Data Home Medications Medication Instructions Recorded Confirmed pentosan polysulfate sodium 100 mg 100 mg PO TID 05/21/20 12/18/22 capsule (Elmiron) propranolol 120 mg capsule,24 120 mg PO DAILY 05/21/20 12/18/22 hr,extended release (Inderal LA) venlafaxine 75 mg capsule,extended 75 mg PO DAILY 05/21/20 12/18/22 release 24 hr glipizide 2.5 mg tablet, extended 2.5 mg PO DAILY 10/22/20 12/18/22 release 24 hr metformin 1,000 mg tablet 1,000 mg PO BID 10/22/20 12/18/22 Previous Rx's Medication Instructions Recorded lidocaine-prilocaine 2.5 %-2.5 % 1 appl topical BID 30 days #30 04/19/20 topical cream grams cholecalciferol (vitamin D3) 50 50 mcg PO DAILY #30 caps 11/27/20 mcg (2,000 unit) capsule docusate sodium 100 mg capsule 100 mg PO BEDTIME #90 caps 08/05/21 clotrimazole-betamethasone 1 1 appl topical BID 5 days #45 grams 01/28/22 %-0.05 % topical cream ondansetron 4 mg disintegrating 4 mg PO Q6H PRN nausea and 04/23/22 tablet vomiting #14 tabs methylcellulose (laxative) 500 mg 500 mg PO DAILY #30 tabs 06/04/22 tablet (Citrucel) cholestyramine-aspartame 4 gram 4 g PO QIDACHS #239.4 grams 06/13/22 oral powder (Cholestyramine Light) bisacodyl 5 mg tablet,delayed 10 mg (2 x 5 mg) PO BEDTIME #180 10/27/22 release (Dulcolax (bisacodyl)) tabs esomeprazole magnesium 40 mg 40 mg PO DAILY #30 caps 10/27/22 capsule,delayed release (Nexium) loperamide 2 mg capsule 2 mg PO Q6H PRN loose stool #20 10/27/22 caps sucralfate 1 gram tablet 1 g PO BEDTIME #30 tabs 10/27/22 magnesium citrate 300 ml PO DAILY PRN constipation 02/03/23 #296 mL polyethylene glycol 3350 17 17 g PO DAILY PRN constipation 02/03/23 gram/dose oral powder (Miralax) #238 grams albuterol sulfate 90 mcg/actuation 2 puff inhalation Q4-6H PRN 04/14/23 aerosol inhaler shortness of breath or wheezing #6.7 grams azithromycin 250 mg tablet See Rx Instructions PO .COMPLEX #6 04/14/23 tabs prednisone 20 mg tablet 40 mg (2 x 20 mg) PO DAILY #10 tabs 04/14/23 Allergies Allergy/AdvReac Type Severity Reaction Status Date / Time oxycodone [Percocet] Allergy Mild hives Verified 03/04/23 14:25 Review of Systems Review of Systems: As per HPI. 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 Hepatic steatosis IBS (irritable colon syndrome) GERD (gastroesophageal reflux disease) Hypertension Pre-diabetes Surgical History Hx of colonoscopy (~2018) History of esophagogastroduodenoscopy (EGD) (~2018) H/O: hysterectomy (~2019) Family History Family History Father Diabetes FH: stomach cancer FH: cancer FHx: hypercholesterolemia Cancer Brother FH: stomach cancer Cancer Mother FH: depression FH: diabetes mellitus FH: cancer Maternal Uncle Cancer FH: cancer Sister Cancer Paternal Grandfather Family history of colon cancer Social History (Updated 03/04/23 @ 14:27 by Margarita Amaral CMA) Household Members: Spouse Alcohol intake: current Alcohol intake frequency: does not drink Patient Tobacco Use Status: Former Tobacco user Tobacco use type: Cigarette Advance Directives: No Current occupational status: unemployed Sexual orientation: Straight/Heterosexual Gender identity: Female Physical Exam ED Vital Signs: Vital Signs - 24 hr 04/14/23 08:09 Temperature 98.2 F Pulse Rate 90 Respiratory Rate 18 Blood Pressure 109/61 Pulse Oximetry 95 Oxygen Delivery Method Room Air BMI result Body Mass Index 37.8 Vital signs have been reviewed and appear to be correct. Blood pressure normal. Heart rate normal. Respiratory rate normal. Temperature normal. Oxygen saturation normal. Const General: cooperative, healthy appearing and no acute distress Orientation/consciousness: oriented to person, oriented to place, oriented to time and patient oriented x3 Limitations: no limitations HENMT Head: Yes normocephalic and Yes atraumatic Ears: external ears normal, TM's normal bilaterally and EAC's normal General nose exam: Normal external nose present and Normal nasal mucous membranes and turbinates present Face and sinus: Yes face symmetric Mouth: Normal oral and palatal mucosa present, oropharynx normal and moist mucous membranes Throat: Yes posterior oropharynx normal and Yes uvula midline Eyes Pupils: Equal, round and reactive pupils present Neck Neck: Yes normal visual inspection and Yes supple Lymphatic: no lymphadenopathy noted Resp Effort & Inspection: normal respiratory effort and able to speak in complete sentences Auscultation: clear to auscultation bilaterally and wheezes scattered wheezes Cardio Rate: regular rate Rhythm: regular rhythm Heart sounds: S1 normal heart sound present and S2 normal heart sound present GI Palpation (GI): Soft to palpation and nontender Auscultation: normoactive bowel sounds General: Yes no CVA tenderness Back/Spine/Pelvis Back: no CVA tenderness Skin General skin exam: elasticity normal and turgor normal Neuro General: oriented to person, oriented to place, oriented to time, patient oriented x3, moves all extremities, no focal motor deficits and CN's II-XI intact bilaterally Cranial nerves: Yes Equal, round and reactive pupils present Cognition (Neuro): normal cognition Extrem General: Yes full ROM, Yes no pedal edema and Yes no calf tenderness Psych Mental Status: mental status grossly normal Affect: normal affect Thought process: Normal thought process present Medical Decision Making Medical Decision Making [facility] Narrative: Patient is a 42-year-old female with history of DM presenting to the emergency department with complaint of shortness of breath, nonproductive cough, headaches, sore throat since Thursday. On exam patient is awake, A+Ox3, VS WNL, afebrile, normal neurological exam without focal deficits, physical exam findings as above. Given reported symptoms and physical exam findings, initial differential includes viral upper respiratory infection, Covid, flu, strep pharyngitis, bronchitis. Swabs for flu, COVID, and strep all negative, patient updated on results and all questions answered. Will treat patient with azithromycin, prednisone, albuterol inhaler. Instructed patient to follow-up with primary care provider. Return precautions discussed. Patient verbalized understanding of and agreement with plan. Differential Diagnosis Differential Diagnoses: The differential diagnosis associated with the presentation includes As per MDM. Lab Data [facility] Lab Attestation statement: I reviewed the patient's lab results. As per [facility]. Labs: Lab Results 04/14/23 Range/Units 08:15 COVID-19 ([facility]ICOLASA) Negative (Negative) COVID-19 Clin Com See Note Influenza Type A ([facility]) Negative (Negative) Influenza Type B ([facility]) Negative (Negative) Influenza A & B Note See Note S. pyogenes GrpA [facility] Negative (Negative) External Record Review External record reviewed: Inpatient record, Office record and Outpatient record Prescription Management I considered prescription management with: Antibiotic and Other Chronic Conditions Patient?s care impacted by: Diabetes Discharge Plan Discharge Clinical Impression: Bronchitis Patient Disposition: Home, Self-Care Instructions: How to Use a Metered-Dose Inhaler (ED), Acute Bronchitis (ED) Additional Instructions: You were evaluated in the emergency department today for cough and shortness of breath. You are being treated for bronchitis with an antibiotic, please complete the full course as prescribed. You are also being prescribed a short course of steroids to decrease inflammation. You are being prescribed an inhaler which you can use every 4-6 hours as needed for shortness of breath. Please follow-up with your primary care provider this week. Return to the emergency department if you develop worsening shortness of breath, difficulty breathing, chest pain, fever not improved with Tylenol or ibuprofen, or any other concerning symptoms. Prescriptions: New azithromycin 250 mg tablet See Rx Instructions .ROUTE .COMPLEX Qty: 6 0RF Rx Instructions: For 250 mg dose pack: take 500 mg today (day 1), then 250 mg for 4 days (days 2-5) albuterol sulfate 90 mcg/actuation HFA aerosol inhaler 2 puff inhalation Q4-6H PRN (Reason: shortness of breath or wheezing) Qty: 6.7 0RF prednisone 20 mg tablet 40 mg PO DAILY Qty: 10 0RF No Action lidocaine-prilocaine 2.5-2.5 % cream 1 appl topical BID 30 Days Qty: 30 0RF Rx Instructions: Apply lightly to right upper abdomen and back topically cholecalciferol (vitamin D3) 50 mcg (2,000 unit) capsule 50 mcg PO DAILY Qty: 30 3RF ondansetron 4 mg tablet,disintegrating 4 mg PO Q6H PRN (Reason: nausea and vomiting) Qty: 14 0RF polyethylene glycol 3350 [Miralax] 17 gram/dose powder 17 g PO DAILY PRN (Reason: constipation) Qty: 238 0RF magnesium citrate Solution 300 ml PO DAILY PRN (Reason: constipation) Qty: 296 0RF venlafaxine 75 mg capsule,extended release 24hr 75 mg PO DAILY propranolol [Inderal LA] 120 mg capsule,extended release 24 hr 120 mg PO DAILY Elmiron 100 mg capsule 100 mg PO TID metformin 1,000 mg tablet 1,000 mg PO BID glipizide 2.5 mg tablet extended release 24hr 2.5 mg PO DAILY docusate sodium 100 mg capsule 100 mg PO BEDTIME Qty: 90 3RF clotrimazole-betamethasone 1-0.05 % cream 1 appl topical BID 5 Days Qty: 45 0RF Cholestyramine Light 4 gram powder 4 g PO QIDACHS Qty: 239.4 3RF Rx Instructions: no meds 1 hr before/4-6 hr after dose Citrucel 500 mg tablet 500 mg PO DAILY Qty: 30 2RF Rx Instructions: take it with full glass of water bisacodyl [Dulcolax (bisacodyl)] 5 mg tablet,delayed release (DR/EC) 10 mg PO BEDTIME Qty: 180 4RF esomeprazole magnesium [Nexium] 40 mg capsule,delayed release(DR/EC) 40 mg PO DAILY Qty: 30 5RF loperamide 2 mg capsule 2 mg PO Q6H PRN (Reason: loose stool) Qty: 20 0RF sucralfate 1 gram tablet 1 g PO BEDTIME Qty: 30 4RF
== END 2023-04-14 09:33 | disposition home or self-care (01) ==
PROVIDERS: Emergency Provider Emergency Medicine; PCP Internal Medicine
DX: J40 Bronchitis, not specified as acute or chronic (principal); Z11.52 Encounter for screening for COVID-19; E11.9 Type 2 diabetes mellitus without complications; I10 Essential (primary) hypertension; Z87.891 Personal history of nicotine dependence; Z79.84 Long term (current) use of oral hypoglycemic drugs
CPT/HCPCS: 87502; 87635; 87651; 99282; 99283

== ENCOUNTER 2023-06-01 11:22 | Outpatient (REF) | payer OTHER, MEDICAID, SELFPAY ==
[2023-06-01 12:31] LABS: Estimated Average Glucose 111 mg/dL; Hemoglobin A1c % 5.5 % (<6.0)
[2023-06-01 12:37] LABS: Alanine Aminotransferase 40 U/L (0-31); Albumin Level 4.1 g/dL (3.5-5.0); Alkaline Phosphatase 77 U/L (39-117); Anion Gap 12 (12-20); Aspartate Amino Transferase 33 U/L (5-31); Bilirubin Total 0.5 mg/dL (0.0-1.0); Blood Urea Nitrogen 12 mg/dL (9-16); Calcium 9.8 mg/dL (8.4-10.2); Carbon Dioxide 28 mmol/L (22-29); Chloride 104 mmol/L (96-108); Estimated Glomerular Filt Rate > 60; Glucose Random 83 mg/dL (60-115); Sodium 140 mmol/L (135-145)
== END 2023-06-01 11:23 | disposition home or self-care (01) ==
LOC: HO.LAB 11:22
PROVIDERS: PCP Internal Medicine; Visit Provider Internal Medicine
DX: E11.9 Type 2 diabetes mellitus without complications (principal); E78.00 Pure hypercholesterolemia, unspecified; I10 Essential (primary) hypertension; R10.814 Left lower quadrant abdominal tenderness
CPT/HCPCS: 36415; 80053; 83036

== ENCOUNTER 2023-06-30 08:56 | Day surgery (SDC) | payer OTHER, SELFPAY ==
[2023-06-10 10:34] VITALS: BMI 37.1
--- NOTE | 2023-06-11 09:23 | P.CONAN_ITS ---
Documented by User: Pat Collazo NP 06/23/23 14:11 HPI - Anesthesia Eval Consult details Narrative: 42yo F for Hernia Repair Umbilical with possible mesh, 06/30/23 Anesthesia Pre-Procedure Meds Is the patient on any of the following meds?: Dulaglutide (Trulicity) PMFSH Active Problems Active Problems: All Active Problems (Updated 06/10/23 @ 10:25 by Dana Alegre RN) Urinary frequency (Acute) Bacterial vaginosis (Acute) Vulvovaginitis sae albicans (Acute) Pre-procedure lab exam (Acute) Pelvic pain (Acute) Well woman exam (Acute) Umbilical hernia (Acute) Adenocarcinoma of cervix (Acute) Transaminitis (Acute) Diabetes 1.5, managed as type 2 (Acute) Thalamic pain syndrome (Acute) Hepatic steatosis (Acute) IBS (irritable colon syndrome) (Acute) GERD (gastroesophageal reflux disease) (Acute) Past Medical History Medical History Umbilical hernia Adenocarcinoma of cervix Transaminitis Diabetes 1.5, 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 Hepatic steatosis IBS (irritable colon syndrome) GERD (gastroesophageal reflux disease) Hypertension Family History Family History Father Diabetes FH: stomach cancer FH: cancer FHx: hypercholesterolemia Cancer Brother FH: stomach cancer Cancer Mother FH: depression FH: diabetes mellitus FH: cancer Maternal Uncle Cancer FH: cancer Sister Cancer Paternal Grandfather Family history of colon cancer Family history of problems with anesthesia: No Surgical History Surgical History Hx laparoscopic cholecystectomy Hx of tubal ligation Hx of exploratory laparotomy Hx of cystoscopy Hx of laparoscopy Hx of colonoscopy (~2017) History of esophagogastroduodenoscopy (EGD) (~2018) H/O: hysterectomy (~2019) History of Problems with Anesthesia: No Social History Social History Household Members: Spouse Are you a primary animal care assistant to a significant other at home: No Do you presently have visiting nurse or other home services: No Alcohol intake: current Alcohol intake frequency: does not drink Patient Tobacco Use Status: Former Tobacco user Quit Date: ~age 24 Tobacco use type: Cigarette Use of substances other than those prescribed or required for medical reasons: No Have you been hit, kicked, punched, or otherwise hurt by someone within the past year? If so, by whom?: No Are you DNR?: No Advance Directives: No Advance Directives Information Provided: Yes Advance Directives on File: No Recently lost weight without trying: No Eating poorly because of decreased appetite: No Nutrition Risks: No Nutritional Risk Patient : No FDLMP: N/A : No Poor oral hygiene: No (extracted molars) Current occupational status: unemployed Sexual orientation: Straight/Heterosexual Gender identity: Female Meds Allergies Allergy/AdvReac Type Severity Reaction Status Date / Time oxycodone [Percocet] Allergy Mild hives Verified 06/30/23 10:00 Home Medications Medication Instructions Recorded Confirmed Last Taken Type pentosan polysulfate sodium 100 mg 100 mg PO TID 05/21/20 06/10/23 Unknown Hi story capsule (Elmiron) propranolol 120 mg capsule,24 120 mg PO DAILY 05/21/20 06/10/23 Unknown History hr,extended release (Inderal LA) venlafaxine 75 mg capsule,extended 75 mg PO DAILY 05/21/20 06/10/23 Unknown History release 24 hr glipizide 2.5 mg tablet, extended 2.5 mg PO QAM 10/22/20 06/10/23 Unknown History release 24 hr metformin 1,000 mg tablet 1,000 mg PO BID 10/22/20 06/10/23 Unknown History dulaglutide 0.75 mg/0.5 mL 0.75 mg subcut QWEEK 06/10/23 06/10/23 05/21/23 History subcutaneous pen injector (Trulicity) prednisone 20 mg tablet 40 mg PO DAILY PRN pain/swelling 06/10/23 06/10/23 Unknown History Exam Height,Weight and Vital Signs: Height 5 ft 2 in Weight 92.079 kg Pertinent Lab Results Pertinent Lab Results: Laboratory Tests 02/03/23 06/01/23 10:59 11:36 WBC 5.9 Hgb 11.9 L Hct 36.5 L Plt Count 223 Sodium 140 Potassium 4.0 Chloride 104 Carbon Dioxide 28 BUN 12 Creatinine 0.68 Assessment and Plan Assessment Anesthesia Assessment: Chart Reviewed Final Anesthetic Review Family History of Problems with Anesthesia: No History of Problems with Anesthesia: No Documented by User: Meaghan Lemus MD 06/30/23 10:58 HPI - Anesthesia Eval Anesthesia Pre-Procedure Meds If Yes to any meds - educate patient: Pt education - increased risk of aspiration PMFSH Past Medical History Medical History Umbilical hernia Adenocarcinoma of cervix Transaminitis Diabetes 1.5, 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 Hepatic steatosis IBS (irritable colon syndrome) GERD (gastroesophageal reflux disease) Hypertension Family History Family History Father Diabetes FH: stomach cancer FH: cancer FHx: hypercholesterolemia Cancer Brother FH: stomach cancer Cancer Mother FH: depression FH: diabetes mellitus FH: cancer Maternal Uncle Cancer FH: cancer Sister Cancer Paternal Grandfather Family history of colon cancer Surgical History Surgical History Hx laparoscopic cholecystectomy Hx of tubal ligation Hx of exploratory laparotomy Hx of cystoscopy Hx of laparoscopy Hx of colonoscopy (~2017) History of esophagogastroduodenoscopy (EGD) (~2017) H/O: hysterectomy (~2018) Social History Social History Household Members: Spouse Are you a primary animal care assistant to a significant other at home: No Do you presently have visiting nurse or other home services: No Alcohol intake: current Alcohol intake frequency: does not drink Patient Tobacco Use Status: Former Tobacco user Quit Date: ~age 24 Tobacco use type: Cigarette Use of substances other than those prescribed or required for medical reasons: No Have you been hit, kicked, punched, or otherwise hurt by someone within the past year? If so, by whom?: No Are you DNR?: No Advance Directives: No Advance Directives Information Provided: Yes Advance Directives on File: No Recently lost weight without trying: No Eating poorly because of decreased appetite: No Nutrition Risks: No Nutritional Risk Patient : No FDLMP: N/A : No Poor oral hygiene: No (extracted molars) Current occupational status: unemployed Sexual orientation: Straight/Heterosexual Gender identity: Female Meds Allergies Allergy/AdvReac Type Severity Reaction Status Date / Time oxycodone [Percocet] Allergy Mild hives Verified 06/30/23 10:00 Home Medications Medication Instructions Recorded Confirmed Last Taken Type pentosan polysulfate sodium 100 mg 100 mg PO TID 05/21/20 06/10/23 Unknown History capsule (Elmiron) propranolol 120 mg capsule,24 120 mg PO DAILY 05/21/20 06/10/23 Unknown History hr,extended release (Inderal LA) venlafaxine 75 mg capsule,extended 75 mg PO DAILY 05/21/20 06/10/23 Unknown History release 24 hr glipizide 2.5 mg tablet, extended 2.5 mg PO QAM 10/22/20 06/10/23 Unknown History release 24 hr metformin 1,000 mg tablet 1,000 mg PO BID 10/22/20 06/10/23 Unknown History dulaglutide 0.75 mg/0.5 mL 0.75 mg subcut QWEEK 06/10/23 06/10/23 05/21/23 History subcutaneous pen injector (Trulicity) prednisone 20 mg tablet 40 mg PO DAILY PRN pain/swelling 06/10/23 06/10/23 Unknown History Exam Airway Mallampati Class: II TM Dist: >3cm Neck ROM: Full Loose/Missing/Broken Teeth: No Heart: RRR Lungs: CTA Assessment and Plan Assessment Anesthesia Assessment: Anesthesia Plan Discussed Final Anesthetic Review NPO: Yes ASA Class: II Final Preanesthetic Review: Meds/Allgs Chart Reviewed, Consent Obtained/Reviewed and Anes Risks/Benef Reviewed Patient Risk: Low Procedure Risk: Low Anesthetic Plan Anesthetic Plan: GA Disposition: Standard PACU
[2023-06-30] VITALS (12 sets, daily range): BP systolic 115–147; BP diastolic 67–90; PULSE 66–84; RESP 14–18; TEMP 36.2–36.4; O2SAT 94–99; BMI 38.0
--- NOTE | 2023-06-30 10:34 | MHC.SHP ---
Pre-Procedural Eval Section A - 24 Hr Update-Section A only Date of Service: 06/30/23 Section B - Complete if H&P > 30 days Chief Complaint: Umbilical hernia without obstruction or gangrene Details of Present Illness: has reducible mass on umbilicus Relevant Social History: None Present Medications: see Short Stay Collaborative assessment Medical History: Significant History (lap naomi, hysterectomy) Allergies: Allergies Allergy/AdvReac Type Severity Reaction Status Date / Time oxycodone [Percocet] Allergy Mild hives Verified 06/30/23 10:00 Review of Systems Sugical H&P ROS: Negative: Constitution, Cardiovascular, Respiratory, Neurological, Psychiatric, Hem-Onc, Allergic/Immunologic, Gastrointestinal, Genitourinary, Musculoskeletal, Integumentary, Endocrine and Eyes/Ears/Nose/Throat Exam Surgical H&P Exam: Normal: HEENT, Normal: Heart, Normal: Lungs, Normal: Extremities, Normal: Abdomen, Normal: Skin and Normal: Neurological Exam Comment: palpable mass on umbilicus with Valsalva, about 2 cm Plan Diagnosis/Plan: Unchanged I have reviewed the history and physical and performed a pertinent physical examination on my patient. No changes have occurred unless specified. Time Spent With Patient Time: Total time managing care of this patient today ____ minutes.
[2023-06-30 10:48] LABS: Glucose, Whole Blood 113 mg/dL (60-115)
[2023-06-30] MEDS: Lactated Ringers 1,000 ML 100 ML IVCONT (10:50)
--- NOTE | 2023-06-30 11:32 | P.OP_ITS ---
Operative Note Operative Note Date of Service: 06/30/23 Narrative: Preop diagnosis: Umbilical hernia Postop diagnosis: Umbilical hernia , fascial defect about 1.2 cm Procedure: Repair of umbilical hernia with Ventralex mesh Surgeon: Nicolas Hector MD accounting administrative assistant: SHAYLEE Espitia The patient is a 42-year-old female with what appeared to be a small reducible mass on the umbilicus. She has had previous surgeries involving the umbilicus for cholecystectomy as well as hysterectomy. She describes discomfort with this area. She understood the technique of the planned procedure as well as the risks, benefits, and alternatives. She was brought to the operating room. She was placed supine under general anesthesia via endotracheal tube. The abdomen was prepped and draped in the usual sterile fashion. A surgical time-out was done. The patient received cefazolin 2 g IV preoperatively . The area of the umbilicus was infiltrated with lidocaine 1%. The hernia seemed to be within the umbilicus itself. I made a curvilinear transverse supraumbilical incision using a blade 15. This carried down gently through the full-thickness of the skin and subcutaneous fat with electrocautery. We encountered significant fibrotic changes from the subcutaneous layer in vi ew of her previous surgeries. I proceeded to gently lift up the umbilicus off of the rest of the fascia with careful dissection using the right angle clamp, electrocautery and scissors. Once this was detached from the fascia we are able to identify a small fascial defect. The fascial defect was about 1.2 cm. I applied a Beatrice clamp on the fascial edge to lift this up. I examined the underside of the fascia and this appeared to be clear without any significant adhesions. I positioned a small-sized Ventralex mesh underneath the fascial defect. This was flattened to cover the entire defect with overlap. I secured the Prolene straps of the mesh to the fascial edge on both sides with Prolene 2 sutures. The Prolene straps were then trimmed flush on the fascial level. I closed the fascia with [id number] Maxon 1 stitch. The subcutaneous layer was reapposed with Polysorb 3-0 interrupted sutures. The umbilicus was tacked down to the fascia to recreate the dimple. The skin was closed with Polysorb 4-0 subcuticular running stitch. The area was infiltrated with Marcaine 0.5% for postop analgesia. Dressings were applied. The procedure was completed. The patient tolerated procedure well. There were no immediate complications. Initial and final counts of sponges and instruments were correct. Estimated blood loss was about 5 cc. The patient was extubated without difficulty and transferred to the recovery room with stable vital signs.
[2023-06-30] MEDS: ondansetron HCL 4 MG/2 ML VIAL IVPUSH (12:06)
[2023-06-30] MEDS: HYDROmorphone HCl 0.5 MG/0.5 ML SYRINGE 0.25 MG IVPUSH ×4 (12:16→12:40)
[2023-06-30] MEDS: Haloperidol Lactate 5 MG/ML VIAL 1 MG IVPUSH (12:39)
== END 2023-06-30 14:35 | disposition home or self-care (01) ==
PROVIDERS: PCP Internal Medicine; Visit Provider Surgery
PROC: (CPT 49591; principal; 2023-06-30 10:50)
DX: K42.9 Umbilical hernia without obstruction or gangrene (principal); K21.9 Gastro-esophageal reflux disease without esophagitis; K76.0 Fatty (change of) liver, not elsewhere classified; K58.9 Irritable bowel syndrome, unspecified; I10 Essential (primary) hypertension; E13.8 Other specified diabetes mellitus with unspecified complications; R74.01 Elevation of levels of liver transaminase levels; Z85.41 Personal history of malignant neoplasm of cervix uteri; G89.0 Central pain syndrome; Z79.52 Long term (current) use of systemic steroids; Z79.84 Long term (current) use of oral hypoglycemic drugs; Z79.85 Long-term (current) use of injectable non-insulin antidiabetic drugs; Z79.899 Other long term (current) drug therapy; Z88.5 Allergy status to narcotic agent; Z90.49 Acquired absence of other specified parts of digestive tract; Z87.891 Personal history of nicotine dependence; Z98.890 Other specified postprocedural states
CPT/HCPCS: 49591; 82947; C1781; J0131; J0665; J0690; J1170; J1630; J2250; J2405; J2704; J3010

== ENCOUNTER → 2023-06-30 08:56 | Outpatient (BNV) | payer OTHER, SELFPAY | PROVIDERS: PCP Internal Medicine; Visit Provider Surgery | DX: K42.9 Umbilical hernia without obstruction or gangrene (principal) | CPT/HCPCS: 49591 ==

== ENCOUNTER 2023-07-15 10:09 | Outpatient (AMB) | payer OTHER, SELFPAY ==
--- NOTE | 2023-07-15 10:13 | MHC.OFFVIS ---
Intake Vital Signs 07/15/23 10:19 Weight 204 lb BP 134/63 Blood Pressure Location Rt brachial Position Sitting Pulse 95 Intake Visit Reasons: s/p umbilical hernia repair Intake Note: This patient presents for a post-op assessment status post umbilical hernia repair with Ventralex mesh. Pt c/o; reports pain surgical site, reports no problems with bowel movements at this time. Vat Operator Required: No Accompanied by: Self / Same As Patient Allergies oxycodone [Percocet] Allergy (Mild, Verified 07/15/23 10:14) hives HPI s/p umbilical hernia repair HPI Details She underwent repair of an umbilical hernia with mesh last 06/30/2023. She tolerated procedure well. She currently denies significant complaints. She says she feels well overall. 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 Hepatic steatosis IBS (irritable colon syndrome) GERD (gastroesophageal reflux disease) Hypertension Surgical History Hx laparoscopic cholecystectomy Hx of tubal ligation Hx of exploratory laparotomy Hx of cystoscopy Hx of laparoscopy Hx of colonoscopy (~2018) History of esophagogastroduodenoscopy (EGD) (~2018) H/O: hysterectomy (~2019) Family History Father Diabetes FH: stomach cancer FH: cancer FHx: hypercholesterolemia Cancer Brother FH: stomach cancer Cancer Mother FH: depression FH: diabetes mellitus FH: cancer Maternal Uncle Cancer FH: cancer Sister Cancer Paternal Grandfather Family history of colon cancer Social History Household Members: Spouse Are you a primary early breastfeeding care specialist to a significant other at home: No Do you presently have visiting nurse or other home services: No Alcohol intake: current Alcohol intake frequency: does not drink Patient Tobacco Use Status: Former Tobacco user Quit Date: ~age 24 Tobacco use type: Cigarette Current occupational status: unemployed Sexual orientation: Straight/Heterosexual Gender identity: Female Female Reproductive History Menstrual Age of Menarche: 11 Review of Systems Const Denies chills and Denies fever(s) Card Denies chest pain, Denies dyspnea and Denies dyspnea on exertion Resp Denies cough, Denies dyspnea and Denies dyspnea on exertion GI Denies hematochezia and Denies change in bowel habits Denies hematuria Musc Denies back pain and Denies limited range of motion Neuro Denies focal weakness and Denies convulsions Psych Denies depression and Denies mood swings Physical Exam Const General: comfortable and no acute distress Resp Effort & Inspection: normal respiratory effort GI Other: Umbilical hernia repair site is well healed, not infected, dry, no cellulitis, repair intact Assessment & Plan Assessment & Plan (1) Umbilical hernia: Code(s): K42.9 - Umbilical hernia without obstruction or gangrene Plan: Status post repair with mesh. She is doing very well. The repair site is intact. The incision is well healed. I advised her to avoid lifting anything more than 20 lb for 1 more month. She can follow up on a p.r.n. basis. Coding Level of Care Code Global (02487) Diagnoses Umbilical hernia K42.9
[2023-07-15 10:19] VITALS: BP 134/63; PULSE 95
== END 2023-07-15 10:33 | disposition home or self-care (01) ==
PROVIDERS: PCP Internal Medicine; Visit Provider Surgery
DX: K42.9 Umbilical hernia without obstruction or gangrene (principal)
CPT/HCPCS: 99212

== ENCOUNTER → 2023-07-15 10:09 | Outpatient (BNVA) | payer OTHER, SELFPAY | PROVIDERS: PCP Internal Medicine; Visit Provider Surgery | DX: K42.9 Umbilical hernia without obstruction or gangrene (principal) | CPT/HCPCS: 99212 ==

== ENCOUNTER 2023-08-23 14:59 | Emergency (ER) | payer OTHER, SELFPAY ==
--- NOTE | ~2023-08-23 | XR_ITS ---
EXAMINATION: XR CHEST CLINICAL INFORMATION: Cough. COMPARISON: Chest radiograph 04/13/2020. TECHNIQUE: Frontal view of the chest was obtained. FINDINGS: No significant abnormality is noted involving the heart, lungs, mediastinum, bony thorax or soft tissues. XR/XR chest 1V IMPRESSION: Unremarkable examination.
[2023-08-23 15:54] VITALS: BP 131/78; PULSE 96; RESP 20; TEMP 36.6; O2SAT 98; BMI 36.6
--- NOTE | 2023-08-23 16:03 | MHC.EDTECH ---
Called pt into triage for labs 1601, No Answer
[2023-08-23 17:03] LABS: IDNOW Serial# 08D9AD1C; Strep A Nucleic Acid Negative (Negative)
[2023-08-23 17:35] LABS: Influenza A PCR NEGATIVE (Negative); Influenza B PCR NEGATIVE (Negative); Resp Syncy Virus RNA Qual PCR NEGATIVE (Negative); SARS COV2 PCR INHOUSE NEGATIVE (Negative)
--- NOTE | 2023-08-23 18:56 | ED_ITS ---
HPI - General Adult General Chief complaint: Upper Respiratory Symptoms Stated complaint: sore throat/sore lungs? Time Seen by Provider: 08/23/23 18:34 Source: patient Mode of arrival: ambulatory Limitations: no limitations History of Present Illness HPI narrative: 42-year-old female past medical history of diabetes and GERD presents to ED for coughing, sore throat, loss of voice, the past 2 weeks. Patient states was sick prior to her. Patient states pain with swallowing. Patient denies any chest pain or shortness of breath. Patient denies any pleurisy, leg swelling, calf pain, coughing up blood, recent long travel, recent surgery, or any control pills. Related Data Home Medications ?Medication ?Instructions ?Recorded ?Confirmed pentosan polysulfate sodium 100 mg 100 mg PO TID 05/21/20 06/10/23 capsule (Elmiron) propranolol 120 mg capsule,24 120 mg PO DAILY 05/21/20 06/10/23 hr,extended release (Inderal LA) venlafaxine 75 mg capsule,extended 75 mg PO DAILY 05/21/20 06/10/23 release 24 hr glipizide 2.5 mg tablet, extended 2.5 mg PO QAM 10/22/20 06/10/23 release 24 hr metformin 1,000 mg tablet 1,000 mg PO BID 10/22/20 06/10/23 dulaglutide 0.75 mg/0.5 mL 0.75 mg subcut QWEEK 06/10/23 06/10/23 subcutaneous pen injector (Trulicity) prednisone 20 mg tablet 40 mg PO DAILY PRN pain/swelling 06/10/23 06/10/23 Previous Rx's ?Medication ?Instructions ?Recorded lidocaine-prilocaine 2.5 %-2.5 % 1 appl topical BID 30 days #30 04/19/20 topical cream grams cholecalciferol (vitamin D3) 50 50 mcg PO DAILY #30 caps 11/27/20 mcg (2,000 unit) capsule docusate sodium 100 mg capsule 100 mg PO BEDTIME #90 caps 08/05/21 clotrimazole-betamethasone 1 1 appl topical BID 5 days #45 grams 01/28/22 %-0.05 % topical cream ondansetron 4 mg disintegrating 4 mg PO Q6H PRN nausea and 04/23/22 tablet vomiting #14 tabs methylcellulose (laxative) 500 mg 500 mg PO DAILY #30 tabs 06/04/22 tablet (Citrucel) cholestyramine-aspartame 4 gram 4 g PO QIDACHS #239.4 grams 06/13/22 oral powder (Cholestyramine Light) bisacodyl 5 mg tablet,delayed 10 mg (2 x 5 mg) PO BEDTIME #180 10/27/22 release (Dulcolax (bisacodyl)) tabs loperamide 2 mg capsule 2 mg PO Q6H PRN loose stool #20 10/27/22 caps sucralfate 1 gram tablet 1 g PO BEDTIME #30 tabs 10/27/22 magnesium citrate 300 ml PO DAILY PRN constipation 02/03/23 #296 mL polyethylene glycol 3350 17 17 g PO DAILY PRN constipation 02/03/23 gram/dose oral powder (Miralax) #238 grams albuterol sulfate 90 mcg/actuation 2 puff inhalation Q4-6H PRN 04/14/23 aerosol inhaler shortness of breath or wheezing #6.7 grams esomeprazole magnesium 40 mg 40 mg PO DAILY #30 caps 05/12/23 capsule,delayed release (Nexium) ibuprofen 600 mg tablet 600 mg PO Q6H PRN pain #30 tabs 06/30/23 oxycodone-acetaminophen 5 mg-325 1 tab PO Q4-6H PRN pain #25 tabs 06/30/23 mg tablet (Percocet) docusate sodium 100 mg capsule 100 mg PO BID constipation 10 days 07/02/23 (Colace) #20 caps benzonatate 200 mg capsule 200 mg PO TID PRN cough 5 days #15 08/23/23 caps Allergies Allergy/AdvReac Type Severity Reaction Status Date / Time oxycodone [Percocet] Allergy Mild hives Verified 08/23/23 15:56 Review of Systems Review of Systems: Sore throat, coughing, loss of voice, fever Yes all other systems are reviewed and are negative PMFSH Past Medical History Medical History Umbilical hernia Adenocarcinoma of cervix Transaminitis Diabetes 1.5, 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 Hepatic steatosis IBS (irritable colon syndrome) GERD (gastroesophageal reflux disease) Hypertension Surgical History Hx laparoscopic cholecystectomy Hx of tubal ligation Hx of exploratory laparotomy Hx of cystoscopy Hx of laparoscopy Hx of colonoscopy (~2017) History of esophagogastroduodenoscopy (EGD) (~2017) H/O: hysterectomy (~2018) Family History Family History Father Diabetes FH: stomach cancer FH: cancer FHx: hypercholesterolemia Cancer Brother FH: stomach cancer Cancer Mother FH: depression FH: diabetes mellitus FH: cancer Maternal Uncle Cancer FH: cancer Sister Cancer Paternal Grandfather Family history of colon cancer Social History Social History Household Members: Spouse Are you a primary health care analyst to a significant other at home: No Do you presently have visiting nurse or other home services: No Alcohol intake: current Alcohol intake frequency: does not drink Patient Tobacco Use Status: Former Tobacco user Quit Date: ~age 24 Tobacco use type: Cigarette Advance Directives: No Advance Directives Information Provided: No Current occupational status: unemployed Sexual orientation: Straight/Heterosexual Gender identity: Female Physical Exam ED Vital Signs: Vital Signs - 24 hr 08/23/23 15:54 08/23/23 19:22 Temperature 98 F 98 F Pulse Rate 96 96 Respiratory Rate 20 20 Blood Pressure 131/78 131/78 Pulse Oximetry 98 Oxygen Delivery Method Room Air BMI result Body Mass Index 36.6 Const General: cooperative, healthy appearing, comfortable, no acute distress, well developed, alert, awake and Physically active Orientation/consciousness: oriented to person, oriented to place, oriented to time and patient oriented x3 HENMT Head: Yes normal to inspection, Yes No palpable skull fracture present, Yes normocephalic and Yes atraumatic Ears: hearing grossly normal bilaterally, external ears normal, TM's normal bilaterally, TM normal on the right, TM normal on the left, EAC's normal, mastoids normal and no periauricular adenopathy Throat: Yes posterior oropharynx normal, Yes tonsils normal and Yes uvula midline Eyes General: appearance normal, both eyes and all related structures Neck Neck: Yes normal visual inspection, Yes full ROM, Yes no lymphadenopathy, Yes no meningeal signs, Yes trachea midline, Yes supple, No anterior neck swelling and No tender Chest Chest palpation & inspection: normal inspection of the chest and normal palpation of entire chest wall Resp Effort & Inspection: normal respiratory effort and able to speak in complete sentences Auscultation: clear to auscultation bilaterally Cardio Jugular venous distension: no JVD Heart sounds: S1 normal heart sound present and S2 normal heart sound present GI Inspection: Yes normal to inspection and No abdominal wall ecchymosis Palpation (GI): Soft to palpation, not firm, nontender, no guarding and not rigid General: No CVA tenderness and Yes no CVA tenderness Back/Spine/Pelvis Back: no CVA tenderness, No CVA tenderness and No back tenderness Skin General skin exam: no rashes or lesions noted, elasticity normal and turgor normal Neuro Other: Bilateral lower extremity negative for swelling, pitting edema, or calf tenderness General: oriented to person, oriented to place, oriented to time, patient oriented x3, gait normal, tone normal, moves all extremities, Normal light touch and pain sensation, no meningeal signs, no focal motor deficits, CN's II-XI intact bilaterally and normal sensation to monofilament Extrem General: Yes normal to inspection and Yes full ROM Psych Appearance: grossly normal, well kempt and not disheveled Medical Decision Making Medical Decision Making MDM Narrative: 42-year-old female presents to ED for URI symptoms for 2 weeks which includes coughing, sore throat, loss of voice, body aches, and chills. Patient denies any pleurisy, chest pain or shortness of breath. X-ray negative for pneumonia. COVID influenza RSV negative. Strep negative. Not suspecting myocardial infarction, CHF exacerbation, PE, pericarditis, pneumonia, or myocarditis. Differential Diagnosis Differential Diagnoses: The differential diagnosis associated with the presentation includes (URI, pneumonia, COVID, influenza, RSV) Admission/Observation Consideration of admission/observation: Escalation of care including admission/observation considered Lab Data [facility] Lab Attestation statement: I reviewed the patient's lab results. Labs: Lab Results 08/23/23 Range/Units 16:39 Influenza Type A (PCR) NEGATIVE (Negative) Influenza Type B (PCR) NEGATIVE (Negative) RSV RNA Qual (PCR) NEGATIVE (Negative) SARS-CoV-2 RNA (RT-PCR) NEGATIVE (Negative) S. pyogenes GrpA FAITH Negative (Negative) Independent Interpretation I performed an independent interpretation of an: Plain X-Ray Radiology Impression Discussion of test interpretation with radiology: I have reviewed the radiologist's reading. Independent Historian Clinical information obtained from an independent historian. History obtained from or confirmed by: Other (patinet) External Record Review External record reviewed: Other (prior visits) Prescription Management I considered prescription management with: Other (COughing) Discharge Plan Discharge Clinical Impression: URI (upper respiratory infection) Patient Disposition: Home, Self-Care Instructions: Pharyngitis (ED), Upper Respiratory Infection (ED) Additional Instructions: Return to the ED immediately for any chest pain, shortness of breath, coughing up blood, leg swelling, calf pain, chest pain on inspiration, fever, chills, dizziness, weakness, or any other concerning symptoms. Prescriptions: New benzonatate 200 mg capsule 200 mg PO TID PRN (Reason: cough) 5 Days Qty: 15 0RF No Action lidocaine-prilocaine 2.5-2.5 % cream 1 appl topical BID 30 Days Qty: 30 0RF Rx Instructions: Apply lightly to right upper abdomen and back topically cholecalciferol (vitamin D3) 50 mcg (2,000 unit) capsule 50 mcg PO DAILY Qty: 30 3RF esomeprazole magnesium [Nexium] 40 mg capsule,delayed release(DR/EC) 40 mg PO DAILY Qty: 30 5RF docusate sodium [Colace] 100 mg capsule 100 mg PO BID 10 Days Qty: 20 0RF ondansetron 4 mg tablet,disintegrating 4 mg PO Q6H PRN (Reason: nausea and vomiting) Qty: 14 0RF albuterol sulfate 90 mcg/actuation HFA aerosol inhaler 2 puff inhalation Q4-6H PRN (Reason: shortness of breath or wheezing) Qty: 6.7 0RF Trulicity 0.75 mg/0.5 mL pen injector 0.75 mg subcut QWEEK prednisone 20 mg tablet 40 mg PO DAILY PRN (Reason: pain/swelling) oxycodone-acetaminophen [Percocet] 5-325 mg tablet 1 tab PO Q4-6H PRN (Reason: pain) Qty: 25 0RF Rx Instructions: Partial Fill upon patient request. ibuprofen 600 mg tablet 600 mg PO Q6H PRN (Reason: pain) Qty: 30 0RF polyethylene glycol 3350 [Miralax] 17 gram/dose powder 17 g PO DAILY PRN (Reason: constipation) Qty: 238 0RF magnesium citrate Solution 300 ml PO DAILY PRN (Reason: constipation) Qty: 296 0RF venlafaxine 75 mg capsule,extended release 24hr 75 mg PO DAILY propranolol [Inderal LA] 120 mg capsule,extended release 24 hr 120 mg PO DAILY Elmiron 100 mg capsule 100 mg PO TID metformin 1,000 mg tablet 1,000 mg PO BID glipizide 2.5 mg tablet extended release 24hr 2.5 mg PO QAM docusate sodium 100 mg capsule 100 mg PO BEDTIME Qty: 90 3RF clotrimazole-betamethasone 1-0.05 % cream 1 appl topical BID 5 Days Qty: 45 0RF Cholestyramine Light 4 gram powder 4 g PO QIDACHS Qty: 239.4 3RF Rx Instructions: no meds 1 hr before/4-6 hr after dose Citrucel 500 mg tablet 500 mg PO DAILY Qty: 30 2RF Rx Instructions: take it with full glass of water bisacodyl [Dulcolax (bisacodyl)] 5 mg tablet,delayed release (DR/EC) 10 mg PO BEDTIME Qty: 180 4RF loperamide 2 mg capsule 2 mg PO Q6H PRN (Reason: loose stool) Qty: 20 0RF sucralfate 1 gram tablet 1 g PO BEDTIME Qty: 30 4RF Stand Alone Forms: Work/School Release Interventions: ED Discharge Assessment Last Done: 08/23/23 19:22 Discharge Date/Time: 08/23/23 19:23 Print Language: Korean
[2023-08-23 19:22] VITALS: BP 131/78; PULSE 96; RESP 20; TEMP 36.6
== END 2023-08-23 19:23 | disposition home or self-care (01) ==
PROVIDERS: Emergency Provider Emergency Medicine; PCP Internal Medicine
DX: J06.9 Acute upper respiratory infection, unspecified (principal); J02.9 Acute pharyngitis, unspecified; R05.9 Cough, unspecified; Z79.899 Other long term (current) drug therapy; Z11.52 Encounter for screening for COVID-19; Z20.822 Contact with and (suspected) exposure to COVID-19
CPT/HCPCS: 0241U; 71045; 87651; 99282; 99283

== ENCOUNTER → 2023-10-14 13:28 | Outpatient (RCR) | payer MEDICAID, SELFPAY | END | disposition home or self-care (01) | LOC: HO.OT 07-13 12:35 | PROVIDERS: PCP Internal Medicine; Visit Provider Internal Medicine | DX: M77.12 Lateral epicondylitis, left elbow (principal) | CPT/HCPCS: 97110; 97166 ==

== ENCOUNTER 2024-02-01 10:07 | Outpatient (REF) | payer OTHER, SELFPAY ==
[2024-02-01 11:09] LABS: Basophils Percent Auto 0.2 % (0-2); Eosinophils Percent Auto 0.1 % (0-4); Imm Gran Abs Auto 0.04 X10*3/uL (0.00-0.03); Imm Gran Pct Auto 0.3 % (0.0-0.4); Lymphocytes Absolute Auto 6.3 X10*3/uL (1.2-4.9); Lymphocytes Percent Auto 43.1 % (20-40); MANUAL DIFF FLAG SCAN; Mean Corpuscular HGB Conc 33.3 g/dl (31.0-35.0); Mean Corpuscular Hemoglobin 29.5 pg (27.0-33.0); Mean Corpuscular Volume 88.6 fL (80.0-98.0); Mean Platelet Volume 9.3 fL (9.4-12.3); Monocytes Absolute Auto 0.8 X10*3/uL (0.1-1.2); Monocytes Percent Auto 5.6 % (2-11); Neutrophils Absolute Auto 7.4 x10*3/uL (2.0-8.3); Neutrophils Percent Auto 50.7 % (45-73); Platelet Count 324 X10*3/uL (160-400); Red Cell Distribution Width 12.8 % (11.0-16.0); SCAN SMEAR FLAG 1; White Blood Count 14.7 X10*3/uL (4.8-10.8)
[2024-02-01 11:21] LABS: Estimated Average Glucose 128 mg/dL; Hemoglobin A1c % 6.1 % (<6.0)
[2024-02-01 11:43] LABS: SLIDE REVIEW VERIFIED
[2024-02-01 12:15] LABS: Alanine Aminotransferase 53 U/L (0-31); Albumin Level 4.2 g/dL (3.5-5.0); Alkaline Phosphatase 75 U/L (39-117); Anion Gap 15 (12-20); Aspartate Amino Transferase 23 U/L (5-31); Bilirubin Total 0.5 mg/dL (0.0-1.0); Blood Urea Nitrogen 13 mg/dL (9-16); Calcium 10.1 mg/dL (8.4-10.2); Carbon Dioxide 29 mmol/L (22-29); Chloride 101 mmol/L (96-108); Cholesterol 152 mg/dL (<200); Estimated Glomerular Filt Rate > 60; Glucose Random 127 mg/dL (60-115); HDL Cholesterol 46 mg/dL (>40); LDL Cholesterol Calculated 92 mg/dL (<100); Sodium 141 mmol/L (135-145); Triglycerides 74 mg/dL (<150)
== END 2024-02-01 10:08 | disposition home or self-care (01) ==
LOC: HO.LAB 10:07
PROVIDERS: PCP Internal Medicine; Visit Provider Internal Medicine
DX: D64.89 Other specified anemias (principal); E11.9 Type 2 diabetes mellitus without complications; E78.2 Mixed hyperlipidemia; I10 Essential (primary) hypertension; J20.9 Acute bronchitis, unspecified
CPT/HCPCS: 36415; 80053; 80061; 83036; 85025

== ENCOUNTER 2024-02-04 11:31 | Outpatient (REF) | payer OTHER, SELFPAY ==
[2024-02-04 12:28] LABS: Microalbum/Creatinine Ratio Ur 5.6 ug/mg cr (<30)
== END 2024-02-04 11:32 | disposition home or self-care (01) ==
LOC: HO.LNP 11:31
PROVIDERS: Visit Provider Internal Medicine
DX: D64.89 Other specified anemias (principal); E11.9 Type 2 diabetes mellitus without complications; E78.2 Mixed hyperlipidemia; I10 Essential (primary) hypertension; I20.9 Angina pectoris, unspecified
CPT/HCPCS: 82043; 82570

== ENCOUNTER 2024-03-08 10:43 | Outpatient (REF) | payer OTHER, SELFPAY ==
--- NOTE | ~2024-03-08 | MM_ITS ---
EXAMINATION: MM SCREENING DIGITAL BREAST TOMOSYNTHESIS, BILATERAL CLINICAL INFORMATION: Screening. Asymptomatic. COMPARISON: Mammography: Comparison is made with available priors TECHNIQUE: Digital breast mammography with tomosynthesis is performed in both the craniocaudal and mediolateral oblique views along with computer-aided detection (CAD). FINDINGS: There are scattered areas of fibroglandular density (ACR BI-RADS breast composition Category b). There are no significant masses, abnormal calcifications, or other abnormalities. MM/MM tomosynthesis screening BI IMPRESSION: No mammographic evidence of malignancy. ASSESSMENT: BI-RADS BI-RADS 1 - Negative RECOMMENDATION: Routine annual mammography screening. 1 year F/U This examination should not preclude the clinical evaluation of a suspicious palpable abnormality. This patient's information was entered into a reminder system with a target due date for their next mammogram. Electronically signed by: Anita Benson DO 03/21/2024 08:50 AM [email or web address]
== END 2024-03-08 10:44 | disposition home or self-care (01) ==
LOC: HO.MAMMO 10:43
PROVIDERS: PCP Internal Medicine; Visit Provider Internal Medicine
DX: Z12.31 Encounter for screening mammogram for malignant neoplasm of breast (principal)
CPT/HCPCS: 77063; 77067

== ENCOUNTER → 2024-03-08 11:00 | Outpatient (BNV) | payer OTHER, SELFPAY | PROVIDERS: PCP Internal Medicine; Visit Provider Internal Medicine | DX: Z12.31 Encounter for screening mammogram for malignant neoplasm of breast (principal) | CPT/HCPCS: 77063; 77067 ==

== ENCOUNTER 2024-03-12 08:49 | Emergency (ER) | payer OTHER, SELFPAY ==
--- NOTE | ~2024-03-12 | US_ITS ---
EXAMINATION: ULTRASOUND APPENDIX CLINICAL INFORMATION: Right lower quadrant tenderness COMPARISON: CT abdomen and pelvis April 23, 2022 TECHNIQUE: Grayscale and color Doppler imaging were obtained in the region of the right lower abdomen. Today's examination is limited secondary to patient body habitus. FINDINGS: The appendix was not clearly visualized. No free fluid identified within the right lower abdomen. The right kidney is grossly unremarkable. Right ovary not clearly visualized. US/US appendix IMPRESSION: The appendix was not clearly visualized. As you know, this does not exclude the diagnosis of acute appendicitis. Electronically signed by: Lenin Gorman MD 03/12/2024 11:39 AM EDT
[2024-03-12 08:55] VITALS: BP 116/75; PULSE 100; RESP 16; TEMP 36.6; O2SAT 99; BMI 36.0
--- NOTE | 2024-03-12 09:06 | ED_ITS ---
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 Describes as bilateral lower abdominal pain and cramping which she describes as contraction-like as which radiates to upper abdomen. Also complains of urinary frequency and dysura. Had some bloody-brownish vaginal discharge. Denies concern for STIs or new sexual partners. MD complaint: abdominal pain Onset (ago): day(s) Treatments prior to arrival: none Related Data Home Medications ?Medication ?Instructions ?Recorded ?Confirmed pentosan polysulfate sodium 100 mg 100 mg PO TID 05/21/20 06/10/23 capsule (Elmiron) propranolol 120 mg capsule,24 120 mg PO DAILY 05/21/20 06/10/23 hr,extended release (Inderal LA) venlafaxine 75 mg capsule,extended 75 mg PO DAILY 05/21/20 06/10/23 release 24 hr glipizide 2.5 mg tablet, extended 2.5 mg PO QAM 10/22/20 06/10/23 release 24 hr metformin 1,000 mg tablet 1,000 mg PO BID 10/22/20 06/10/23 dulaglutide 0.75 mg/0.5 mL 0.75 mg subcut QWEEK 06/10/23 06/10/23 subcutaneous pen injector (Trulicity) prednisone 20 mg tablet 40 mg PO DAILY PRN pain/swelling 06/10/23 06/10/23 Previous Rx's ?Medication ?Instructions ?Recorded lidocaine-prilocaine 2.5 %-2.5 % 1 appl topical BID 30 days #30 04/19/20 topical cream grams cholecalciferol (vitamin D3) 50 50 mcg PO DAILY #30 caps 11/27/20 mcg (2,000 unit) capsule docusate sodium 100 mg capsule 100 mg PO BEDTIME #90 caps 08/05/21 clotrimazole-betamethasone 1 1 appl topical BID 5 days #45 grams 01/28/22 %-0.05 % topical cream ondansetron 4 mg disintegrating 4 mg PO Q6H PRN nausea and 04/23/22 tablet vomiting #14 tabs methylcellulose (laxative) 500 mg 500 mg PO DAILY #30 tabs 06/04/22 tablet (Citrucel) cholestyramine-aspartame 4 gram 4 g PO QIDACHS #239.4 grams 06/13/22 oral powder (Cholestyramine Light) bisacodyl 5 mg tablet,delayed 10 mg (2 x 5 mg) PO BEDTIME #180 10/27/22 release (Dulcolax (bisacodyl)) tabs loperamide 2 mg capsule 2 mg PO Q6H PRN loose stool #20 10/27/22 caps sucralfate 1 gram tablet 1 g PO BEDTIME #30 tabs 10/27/22 magnesium citrate 300 ml PO DAILY PRN constipation 02/03/23 #296 mL polyethylene glycol 3350 17 17 g PO DAILY PRN constipation 02/03/23 gram/dose oral powder (Miralax) #238 grams albuterol sulfate 90 mcg/actuation 2 puff inhalation Q4-6H PRN 04/14/23 aerosol inhaler shortness of breath or wheezing #6.7 grams esomeprazole magnesium 40 mg 40 mg PO DAILY #30 caps 05/12/23 capsule,delayed release (Nexium) ibuprofen 600 mg tablet 600 mg PO Q6H PRN pain #30 tabs 06/30/23 oxycodone-acetaminophen 5 mg-325 1 tab PO Q4-6H PRN pain #25 tabs 06/30/23 mg tablet (Percocet) docusate sodium 100 mg capsule 100 mg PO BID constipation 10 days 07/02/23 (Colace) #20 caps benzonatate 200 mg capsule 200 mg PO TID PRN cough 5 days #15 08/23/23 caps Allergies Allergy/AdvReac Type Severity Reaction Status Date / Time oxycodone [Percocet] Allergy Mild hives Verified 03/12/24 08:58 Review of Systems 2 Review of Systems: As per HPI. 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 Hepatic steatosis IBS (irritable colon syndrome) GERD (gastroesophageal reflux disease) Hypertension Surgical History Hx laparoscopic cholecystectomy Hx of tubal ligation Hx of exploratory laparotomy Hx of cystoscopy Hx of laparoscopy Hx of colonoscopy (~2018) History of esophagogastroduodenoscopy (EGD) (~2018) H/O: hysterectomy (~2018) Family History Family History Father Diabetes FH: stomach cancer FH: cancer FHx: hypercholesterolemia Cancer Brother FH: stomach cancer Cancer Mother FH: depression FH: diabetes mellitus FH: cancer Maternal Uncle Cancer FH: cancer Sister Cancer Paternal Grandfather Family history of colon cancer Social History Social History Household Members: Spouse Are you a primary resident care technician to a significant other at home: No Do you presently have visiting nurse or other home services: No Alcohol intake: current Alcohol intake frequency: does not drink Patient Tobacco Use Status: Former Tobacco user Tobacco use type: Cigarette Advance Directives: No Advance Directives Information Provided: Yes Do you have a plan to hurt others: No Plan Current occupational status: unemployed Sexual orientation: Straight/Heterosexual Gender identity: Female Physical Exam ED Vital Signs: Vital Signs - 24 hr 03/12/24 08:55 03/12/24 11:36 Temperature 97.9 F 98.4 F Pulse Rate 100 94 Respiratory Rate 16 16 Blood Pressure 116/75 114/71 Pulse Oximetry 99 97 Oxygen Delivery Method Room Air Room Air BMI result Body Mass Index 36.0 Vital signs have been reviewed and appear to be correct. Blood pressure normal. Heart rate normal. Respiratory rate normal. Temperature normal. Oxygen saturation normal. Const General: cooperative, healthy appearing and no acute distress Orientation/consciousness: oriented to person, oriented to place, oriented to time and patient oriented x3 Limitations: no limitations HENMT Head: Yes normocephalic and Yes atraumatic Ears: external ears normal General nose exam: Normal external nose present Face and sinus: Yes face symmetric Mouth: oropharynx normal and moist mucous membranes Throat: Yes uvula midline Eyes Pupils: Equal, round and reactive pupils present Neck Neck: Yes normal visual inspection and Yes supple Resp Effort & Inspection: normal respiratory effort and able to speak in complete sentences Auscultation: clear to auscultation bilaterally Cardio Rate: regular rate Rhythm: regular rhythm Heart sounds: S1 normal heart sound present and S2 normal heart sound present GI Inspection: Yes normal to inspection Palpation (GI): Soft to palpation, Tenderness to palpation present (GI) in the RLQ, no guarding and No Rebound tenderness present Auscultation: normoactive bowel sounds General: Yes no CVA tenderness Back/Spine/Pelvis Back: no CVA tenderness Skin General skin exam: elasticity normal and turgor normal Neuro General: oriented to person, oriented to place, oriented to time, patient oriented x3, moves all extremities, no focal motor deficits and CN's II-XI intact bilaterally Cranial nerves: Yes Equal, round and reactive pupils present Cognition (Neuro): normal cognition Extrem General: Yes full ROM, Yes no pedal edema and Yes no calf tenderness Psych Mental Status: mental status grossly normal Affect: normal affect Thought process: Normal thought process present Medical Decision Making Medical Decision Making MDM Narrative: Patient is a 43-year-old female with 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 On exam patient is awake, A+Ox3, VS WNL, afebrile, normal neurological exam without focal deficits, physical exam findings as above. Given reported symptoms and physical exam findings, initial differential includes UTI, STI, BV, appendicitis. Labs notable for mild anemia not at level requiring transfusion, mildly elevated transaminases, neg hcg. Ultrasound unable to visualize appendix, unlikely acute appendicitis as no leukocytosis, patient afebrile. My interpretation is in agreement with the radiologist's interpretation. Urinalysis notable for no evidence of infection. Discussed with patient performing pelvic exam, patient initially agreeable, then stating she wants to leave as she has been waiting too long. Refusing to remain in the ED to sign AMA paperwork. Risks of leaving discussed with patient up to and including and patient verbalized understanding of risks. Advised patient she can return at any time should she change her mind. Differential Diagnosis Differential Diagnoses: The differential diagnosis associated with the presentation includes As per MDM Admission/Observation Consideration of admission/observation: Escalation of care including admission/observation considered Patient would have been admitted to the hospital had their work up had any findings where hospital admission was appropriate and their clinical presentation warranted hospital admission. Lab Data [facility] Lab Attestation statement: I reviewed the patient's lab results. As per [facility] 03/12/24 09:32 03/12/24 09:32 Labs: Lab Results 03/12/24 03/12/24 Range/Units 09:32 11:47 WBC 8.2 (4.8-10.8) X10*3/uL RBC 3.83 L (4.20-5.50) X10*6/uL Hgb 11.5 L (12.0-16.0) g/dl Hct 34.9 L (37.0-47.0) % MCV 91.1 (80.0-98.0) fL MCH 30.0 (27.0-33.0) pg MCHC 33.0 (31.0-35.0) g/dl RDW 12.7 (11.0-16.0) % Plt Count 201 D (160-400) X10*3/uL MPV 8.9 L (9.4-12.3) fL Immature Gran % (Auto) 0.1 (0.0-0.4) % Neut % (Auto) 54.3 (45-73) % Lymph % (Auto) 37.8 (20-40) % [place] % (Auto) 6.1 (2-11) % Eos % (Auto) 1.3 (0-4) % Baso % (Auto) 0.4 (0-2) % Lymph # (Auto) 3.1 (1.2-4.9) X10*3/uL [place] # (Auto) 0.5 (0.1-1.2) X10*3/uL Eos # (Auto) 0.1 (0.0-0.4) X10*3/uL Baso # (Auto) 0.0 (0.0-0.2) X10*3/uL Abs Immat Gran (auto) 0.01 (0.00-0.03) X10*3/uL Absolute Neuts (auto) 4.4 (2.0-8.3) x10*3/uL Absolute Nucleated RBC 0.000 (0.0-0.012) X10*3/uL Nucleated RBC % (auto) 0.0 (0.0-0.2) /100WBC Sodium 141 (135-145) mmol/L Potassium 4.0 (3.3-5.1) mmol/L Chloride 105 (96-108) mmol/L Carbon Dioxide 27 (22-29) mmol/L Anion Gap 13 (12-20) BUN 9 (9-16) mg/dL Creatinine 0.69 (0.5-1.4) mg/dL Estim Creat Clear Calc 108.0 Estimated GFR > 60 Random Glucose 156 H (60-115) mg/dL Calcium 9.2 D (8.4-10.2) mg/dL Total Bilirubin 0.5 (0.0-1.0) mg/dL AST 43 H (5-31) U/L ALT 51 H (0-31) U/L Alkaline Phosphatase 72 (39-117) U/L Total Protein 7.0 (6.5-8.0) g/dL Albumin 3.8 (3.5-5.0) g/dL Beta HCG, Quant < 2 mIU/mL Urine Color Yellow Urine Appearance Clear Urine pH 6.5 (5.0-9.0) Ur Specific [place] 1.010 (1.005-1.025) Urine Protein Negative (Neg-Trace) mg/dL Urine Glucose (UA) Negative (Negative) mg/dL Urine Ketones Negative (Negative) mg/dL Urine Blood Negative (Negative) Urine Nitrite Negative (Negative) Ur Leukocyte Esterase Negative (Negative) Influenza Type A (PCR) NEGATIVE (Negative) Influenza Type B (PCR) NEGATIVE (Negative) RSV RNA Qual (PCR) NEGATIVE (Negative) SARS-CoV-2 RNA (RT-PCR) NEGATIVE (Negative) Independent Interpretation I performed an independent interpretation of an: Ultrasound Interpretation: Unable to visualize appendicitis on ultrasound. Radiology Impression Discussion of test interpretation with radiology: I have reviewed the radiologist's reading. Radiologist Impression: US/US appendix IMPRESSION: The appendix was not clearly visualized. As you know, this does not exclude the diagnosis of acute appendicitis. External Record Review External record reviewed: Inpatient record, Office record and Outpatient record Discharge Plan Discharge Clinical Impression: Abdominal pain Patient Disposition: Left Against Medical Advice Prescriptions: No Action lidocaine-prilocaine 2.5-2.5 % cream 1 appl topical BID 30 Days Qty: 30 0RF Rx Instructions: Apply lightly to right upper abdomen and back topically cholecalciferol (vitamin D3) 50 mcg (2,000 unit) capsule 50 mcg PO DAILY Qty: 30 3RF esomeprazole magnesium [Nexium] 40 mg capsule,delayed release(DR/EC) 40 mg PO DAILY Qty: 30 5RF docusate sodium [Colace] 100 mg capsule 100 mg PO BID 10 Days Qty: 20 0RF ondansetron 4 mg tablet,disintegrating 4 mg PO Q6H PRN (Reason: nausea and vomiting) Qty: 14 0RF albuterol sulfate 90 mcg/actuation HFA aerosol inhaler 2 puff inhalation Q4-6H PRN (Reason: shortness of breath or wheezing) Qty: 6.7 0RF Trulicity 0.75 mg/0.5 mL pen injector 0.75 mg subcut QWEEK prednisone 20 mg tablet 40 mg PO DAILY PRN (Reason: pain/swelling) oxycodone-acetaminophen [Percocet] 5-325 mg tablet 1 tab PO Q4-6H PRN (Reason: pain) Qty: 25 0RF Rx Instructions: Partial Fill upon patient request. ibuprofen 600 mg tablet 600 mg PO Q6H PRN (Reason: pain) Qty: 30 0RF polyethylene glycol 3350 [Miralax] 17 gram/dose powder 17 g PO DAILY PRN (Reason: constipation) Qty: 238 0RF magnesium citrate Solution 300 ml PO DAILY PRN (Reason: constipation) Qty: 296 0RF benzonatate 200 mg capsule 200 mg PO TID PRN (Reason: cough) 5 Days Qty: 15 0RF venlafaxine 75 mg capsule,extended release 24hr 75 mg PO DAILY propranolol [Inderal LA] 120 mg capsule,extended release 24 hr 120 mg PO DAILY Elmiron 100 mg capsule 100 mg PO TID metformin 1,000 mg tablet 1,000 mg PO BID glipizide 2.5 mg tablet extended release 24hr 2.5 mg PO QAM docusate sodium 100 mg capsule 100 mg PO BEDTIME Qty: 90 3RF clotrimazole-betamethasone 1-0.05 % cream 1 appl topical BID 5 Days Qty: 45 0RF Cholestyramine Light 4 gram powder 4 g PO QIDACHS Qty: 239.4 3RF Rx Instructions: no meds 1 hr before/4-6 hr after dose Citrucel 500 mg tablet 500 mg PO DAILY Qty: 30 2RF Rx Instructions: take it with full glass of water bisacodyl [Dulcolax (bisacodyl)] 5 mg tablet,delayed release (DR/EC) 10 mg PO BEDTIME Qty: 180 4RF loperamide 2 mg capsule 2 mg PO Q6H PRN (Reason: loose stool) Qty: 20 0RF sucralfate 1 gram tablet 1 g PO BEDTIME Qty: 30 4RF Stand Alone Forms: Against Medical Advice Print Language: Kyrgyz
[2024-03-12 09:37] LABS: MANUAL DIFF FLAG NO
[2024-03-12 09:40] LABS: Basophils Percent Auto 0.4 % (0-2); Eosinophils Absolute Auto 0.1 X10*3/uL (0.0-0.4); Eosinophils Percent Auto 1.3 % (0-4); Hematocrit 34.9 % (37.0-47.0); Hemoglobin 11.5 g/dl (12.0-16.0); Imm Gran Abs Auto 0.01 X10*3/uL (0.00-0.03); Imm Gran Pct Auto 0.1 % (0.0-0.4); Lymphocytes Absolute Auto 3.1 X10*3/uL (1.2-4.9); Lymphocytes Percent Auto 37.8 % (20-40); Mean Corpuscular Volume 91.1 fL (80.0-98.0); Mean Platelet Volume 8.9 fL (9.4-12.3); Monocytes Absolute Auto 0.5 X10*3/uL (0.1-1.2); Monocytes Percent Auto 6.1 % (2-11); Neutrophils Absolute Auto 4.4 x10*3/uL (2.0-8.3); Neutrophils Percent Auto 54.3 % (45-73); Platelet Count 201 X10*3/uL (160-400); Red Blood Count 3.83 X10*6/uL (4.20-5.50); Red Cell Distribution Width 12.7 % (11.0-16.0); White Blood Count 8.2 X10*3/uL (4.8-10.8)
[2024-03-12 10:00] LABS: Alanine Aminotransferase 51 U/L (0-31); Albumin Level 3.8 g/dL (3.5-5.0); Alkaline Phosphatase 72 U/L (39-117); Anion Gap 13 (12-20); Aspartate Amino Transferase 43 U/L (5-31); Bilirubin Total 0.5 mg/dL (0.0-1.0); Blood Urea Nitrogen 9 mg/dL (9-16); Calcium 9.2 mg/dL (8.4-10.2); Carbon Dioxide 27 mmol/L (22-29); Chloride 105 mmol/L (96-108); Estimated Glomerular Filt Rate > 60; Glucose Random 156 mg/dL (60-115); Sodium 141 mmol/L (135-145)
[2024-03-12 10:08] LABS: HCG Quantitative < 2 mIU/mL
[2024-03-12 10:17] LABS: Influenza A PCR NEGATIVE (Negative); Influenza B PCR NEGATIVE (Negative); Resp Syncy Virus RNA Qual PCR NEGATIVE (Negative); SARS COV2 PCR INHOUSE NEGATIVE (Negative)
[2024-03-12 11:36] VITALS: BP 114/71; PULSE 94; RESP 16; TEMP 36.9; O2SAT 97
--- NOTE | 2024-03-12 11:37 | PC.NURSE ---
resting quietly in room, vss. patient encouraged to give urine sample. awaiting results from us
[2024-03-12 11:54] LABS: Appearance Urine Clear; Color Urine Yellow; Glucose Urine UA Negative (Negative); Leukocyte Esterase Urine Negative (Negative); Nitrite Urine Negative (Negative); PH 6.5 (5.0-9.0); Urine Blood Negative (Negative); Urine Ketones Negative (Negative); Urine Protein Negative (Neg-Trace)
--- NOTE | 2024-03-12 12:34 | PC.NURSE ---
patient upset with care, stating that we are not doing anything to help her pain. left prior to receiving discharge instructions
[2024-03-12 12:35] VITALS: BP 114/71; PULSE 94; RESP 16; TEMP 36.9; O2SAT 97
== END 2024-03-12 12:35 | disposition left against medical advice (07) ==
PROVIDERS: Emergency Provider Emergency Medicine Emergency Medical Services; PCP Internal Medicine
DX: R10.31 Right lower quadrant pain (principal); Z03.818 Encounter for observation for suspected exposure to other biological agents ruled out; Z53.29 Procedure and treatment not carried out because of patient's decision for other reasons; E11.9 Type 2 diabetes mellitus without complications; Z79.899 Other long term (current) drug therapy; Z79.85 Long-term (current) use of injectable non-insulin antidiabetic drugs; Z79.84 Long term (current) use of oral hypoglycemic drugs
CPT/HCPCS: 0241U; 76705; 80053; 81003; 84702; 85025; 99284

== ENCOUNTER 2024-05-09 11:00 | Outpatient (REF) | payer OTHER, SELFPAY ==
[2024-05-09 12:35] LABS: Estimated Average Glucose 131 mg/dL; Hemoglobin A1C 142.7355 umol/L; Hemoglobin A1c % 6.2 % (<6.0)
[2024-05-09 12:48] LABS: Alanine Aminotransferase 77 U/L (0-31); Albumin Level 4.2 g/dL (3.5-5.0); Alkaline Phosphatase 78 U/L (39-117); Anion Gap 14 (12-20); Aspartate Amino Transferase 55 U/L (5-31); Bilirubin Total 0.9 mg/dL (0.0-1.0); Blood Urea Nitrogen 9 mg/dL (9-16); Calcium 8.9 mg/dL (8.4-10.2); Carbon Dioxide 27 mmol/L (22-29); Chloride 104 mmol/L (96-108); Estimated Glomerular Filt Rate > 60; Glucose Random 144 mg/dL (60-115); Potassium 4.1 mmol/L (3.3-5.1); Sodium 141 mmol/L (135-145); Total Protein 7.9 g/dL (6.5-8.0)
== END 2024-05-09 11:01 | disposition home or self-care (01) ==
LOC: HO.LAB 11:00
PROVIDERS: PCP Internal Medicine; Visit Provider Internal Medicine
DX: Z00.00 Encounter for general adult medical examination without abnormal findings (principal); E11.9 Type 2 diabetes mellitus without complications; E78.00 Pure hypercholesterolemia, unspecified; M54.50 Low back pain, unspecified; R74.01 Elevation of levels of liver transaminase levels
CPT/HCPCS: 36415; 80053; 83036

== ENCOUNTER 2024-06-18 19:34 | Emergency (ER) | payer OTHER, SELFPAY ==
--- NOTE | ~2024-06-18 | CT_ITS ---
CLINICAL HISTORY: bilateral abdominal and flank pain dysuria CT abdomen and pelvis with contrast Comparison: 04/23/2022 Findings: Lung bases are clear. No acute bony abnormalities. Hepatomegaly with fatty infiltration of the liver. No focal abnormalities in liver or spleen. Pancreas and adrenal glands unremarkable. Cholecystectomy. No significant focal renal abnormalities. No renal stones or hydronephrosis. Abdominal aorta is normal in caliber. No free fluid or adenopathy in the pelvis. No diverticulitis. Appendix unremarkable. Hysterectomy. No adnexal abnormality. Impression: No acute process This document has been electronically signed by: Mikel Waldrop MD on 06/19/2024 00:10:29
[2024-06-18 19:38] VITALS: BP 122/64; BP 131/87; PULSE 113; PULSE 118; RESP 16; TEMP 36.6; O2SAT 98
[2024-06-18 19:44] VITALS: BMI 36.3
[2024-06-18 19:46] LABS: Glucose, Whole Blood > 600 mg/dL (60-115)
[2024-06-18 20:05] LABS: Basophils Percent Auto 0.3 % (0-2); Eosinophils Absolute Auto 0.1 X10*3/uL (0.0-0.4); Eosinophils Percent Auto 0.6 % (0-4); Hematocrit 39.2 % (37.0-47.0); Hemoglobin 13.4 g/dl (12.0-16.0); Imm Gran Abs Auto 0.03 X10*3/uL (0.00-0.03); Imm Gran Pct Auto 0.3 % (0.0-0.4); Lymphocytes Absolute Auto 4.8 X10*3/uL (1.2-4.9); Lymphocytes Percent Auto 40.8 % (20-40); MANUAL DIFF FLAG NO; Mean Corpuscular HGB Conc 34.2 g/dl (31.0-35.0); Mean Corpuscular Hemoglobin 29.9 pg (27.0-33.0); Mean Corpuscular Volume 87.5 fL (80.0-98.0); Mean Platelet Volume 9.7 fL (9.4-12.3); Monocytes Absolute Auto 0.6 X10*3/uL (0.1-1.2); Neutrophils Absolute Auto 6.2 x10*3/uL (2.0-8.3); Platelet Count 269 X10*3/uL (160-400); Red Blood Count 4.48 X10*6/uL (4.20-5.50); Red Cell Distribution Width 12.3 % (11.0-16.0); White Blood Count 11.6 X10*3/uL (4.8-10.8)
[2024-06-18 20:27] LABS: Alanine Aminotransferase 48 U/L (0-31); Albumin Level 4.1 g/dL (3.5-5.0); Alkaline Phosphatase 77 U/L (39-117); Anion Gap 21 (12-20); Aspartate Amino Transferase 28 U/L (5-31); Bilirubin Total 0.7 mg/dL (0.0-1.0); Blood Urea Nitrogen 20 mg/dL (9-16); Calcium 9.4 mg/dL (8.4-10.2); Carbon Dioxide 20 mmol/L (22-29); Chloride 93 mmol/L (96-108); Creatinine Clr Calc Pharmacy 68.7; Estimated Glomerular Filt Rate 55; Glucose Random 628 mg/dL (60-115); Potassium 4.4 mmol/L (3.3-5.1); Sodium 130 mmol/L (135-145)
[2024-06-18 20:52] VITALS: BP 119/81; PULSE 107; RESP 16; TEMP 36.4; O2SAT 97
[2024-06-18 20:59] LABS: Appearance Urine Clear; Color Urine Yellow; Glucose Urine UA >=1000 mg/dL (Negative); Leukocyte Esterase Urine Negative (Negative); Nitrite Urine Negative (Negative); PH 5.5 (5.0-9.0); Specific Gravity - Urine >= 1.030 (1.005-1.025); UMIC TRIGGER UACC YES; Urine Blood Negative (Negative); Urine Ketones 40 mg/dL (Negative); Urine Protein Negative (Neg-Trace)
[2024-06-18 21:00] LABS: VBG Base Excess 4.2 mmol/L; VBG HCO3 30 mmol/L (22-26); VBG pCO2 49 mmHg; VBG pH 7.39 (7.32-7.43); VBG pO2 32 mmHg
[2024-06-18 21:04] LABS: Venous Blood Gas Refer to POC result
[2024-06-18] MEDS: SODIUM CHLORIDE 2703 ML IV (21:09)
[2024-06-18] MEDS: Insulin Regular, Human 100 UNIT/ML 10 ML VIAL 12 UNIT IVPUSH (21:10)
[2024-06-18 21:12] LABS: Bacteria Urine None Seen (None Seen); Hyaline Casts Urine 0-2 /LPF (0-2); RBC Urine 0-2 /HPF (0-2); WBC Urine 0-5 /HPF (0-5)
--- NOTE | 2024-06-18 21:18 | ED.GENADULT ---
HPI - General Adult General Chief complaint: General Medical Stated complaint: hyperglycemic weak abd pain dizzy, takes metformin Time Seen by Provider: 06/18/24 20:30 History of Present Illness ED Provider: Xavier Borja MD HPI narrative: 43-year-old female came in complaining of hyperglycemia measured at home generalized weakness abdominal pain feeling dizzy. [id number]. Recently on prednisone for 3 weeks Related Data Home Medications ?Medication ?Instructions ?Recorded ?Confirmed pentosan polysulfate sodium 100 mg 100 mg PO TID 05/21/20 06/10/23 capsule (Elmiron) propranolol 120 mg capsule,24 120 mg PO DAILY 05/21/20 06/10/23 hr,extended release (Inderal LA) venlafaxine 75 mg capsule,extended 75 mg PO DAILY 05/21/20 06/10/23 release 24 hr glipizide 2.5 mg tablet, extended 2.5 mg PO QAM 10/22/20 06/10/23 release 24 hr metformin 1,000 mg tablet 1,000 mg PO BID 10/22/20 06/10/23 dulaglutide 0.75 mg/0.5 mL 0.75 mg subcut QWEEK 06/10/23 06/10/23 subcutaneous pen injector (Trulicity) prednisone 20 mg tablet 40 mg PO DAILY PRN pain/swelling 06/10/23 06/10/23 Previous Rx's ?Medication ?Instructions ?Recorded lidocaine-prilocaine 2.5 %-2.5 % 1 appl topical BID 30 days #30 04/19/20 topical cream grams cholecalciferol (vitamin D3) 50 50 mcg PO DAILY #30 caps 11/27/20 mcg (2,000 unit) capsule docusate sodium 100 mg capsule 100 mg PO BEDTIME #90 caps 08/05/21 clotrimazole-betamethasone 1 1 appl topical BID 5 days #45 grams 01/28/22 %-0.05 % topical cream ondansetron 4 mg disintegrating 4 mg PO Q6H PRN nausea and 04/23/22 tablet vomiting #14 tabs methylcellulose (laxative) 500 mg 500 mg PO DAILY #30 tabs 06/04/22 tablet (Citrucel) cholestyramine-aspartame 4 gram 4 g PO QIDACHS #239.4 grams 06/13/22 oral powder (Cholestyramine Light) bisacodyl 5 mg tablet,delayed 10 mg (2 x 5 mg) PO BEDTIME #180 10/27/22 release (Dulcolax (bisacodyl)) tabs loperamide 2 mg capsule 2 mg PO Q6H PRN loose stool #20 10/27/22 caps sucralfate 1 gram tablet 1 g PO BEDTIME #30 tabs 10/27/22 magnesium citrate 300 ml PO DAILY PRN constipation 02/03/23 #296 mL polyethylene glycol 3350 17 17 g PO DAILY PRN constipation 02/03/23 gram/dose oral powder (Miralax) #238 grams albuterol sulfate 90 mcg/actuation 2 puff inhalation Q4-6H PRN 04/14/23 aerosol inhaler shortness of breath or wheezing #6.7 grams esomeprazole magnesium 40 mg 40 mg PO DAILY #30 caps 05/12/23 capsule,delayed release (Nexium) ibuprofen 600 mg tablet 600 mg PO Q6H PRN pain #30 tabs 06/30/23 oxycodone-acetaminophen 5 mg-325 1 tab PO Q4-6H PRN pain #25 tabs 06/30/23 mg tablet (Percocet) docusate sodium 100 mg capsule 100 mg PO BID constipation 10 days 07/02/23 (Colace) #20 caps benzonatate 200 mg capsule 200 mg PO TID PRN cough 5 days #15 08/23/23 caps clotrimazole 2 % vaginal cream 1 appful vaginal BEDTIME 3 days 06/19/24 (Clotrimazole 3 Day) #21 grams metformin 500 mg tablet 1,000 mg (2 x 500 mg) PO BID 2 06/19/24 weeks #56 tabs Allergies Allergy/AdvReac Type Severity Reaction Status Date / Time oxycodone [Percocet] Allergy Mild hives Verified 06/18/24 19:46 [facility] Past Medical History Medical History Umbilical hernia Adenocarcinoma of cervix Transaminitis Diabetes 1.5, 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 Hepatic steatosis IBS (irritable colon syndrome) GERD (gastroesophageal reflux disease) Hypertension Surgical History Hx laparoscopic cholecystectomy Hx of tubal ligation Hx of exploratory laparotomy Hx of cystoscopy Hx of laparoscopy Hx of colonoscopy (~2017) History of esophagogastroduodenoscopy (EGD) (~2018) H/O: hysterectomy (~2018) Family History Family History Father Diabetes FH: stomach cancer FH: cancer FHx: hypercholesterolemia Cancer Brother FH: stomach cancer Cancer Mother FH: depression FH: diabetes mellitus FH: cancer Maternal Uncle Cancer FH: cancer Sister Cancer Paternal Grandfather Family history of colon cancer Social History Social History Household Members: Spouse Are you a primary restorative care technician to a significant other at home: No Do you presently have visiting nurse or other home services: No Alcohol intake: current Alcohol intake frequency: does not drink Patient Tobacco Use Status: Former Tobacco user Tobacco use type: Cigarette Current occupational status: unemployed Sexual orientation: Straight/Heterosexual Gender identity: Female Physical Exam ED Vital Signs: Vital Signs - 24 hr 06/18/24 23:26 06/19/24 00:00 06/19/24 01:31 Temperature 97.7 F 97.1 F 97.8 F Pulse Rate 98 97 99 Respiratory Rate 20 16 18 Blood Pressure 123/71 123/71 103/63 Pulse Oximetry 98 98 98 Oxygen Delivery Method Room Air Room Air Room Air 06/19/24 01:40 Temperature 97.8 F Pulse Rate 99 Respiratory Rate 18 Blood Pressure 103/63 Pulse Oximetry 98 Oxygen Delivery Method Room Air BMI result Body Mass Index 36.3 Medications Administered Discontinued Medications Generic Name Dose Route Start Last Admin Trade Name Freq PRN Reason Stop Dose Admin Clotrimazole 1 appl 06/18/24 22:17 06/18/24 23:25 Clotrimazole 1 % Vaginal Cream 45 Gm Tube VAGINAL 06/18/24 22:18 Not Given ONCE ONE Sodium Chloride 2,703 mls @ 2,703 mls/hr 06/18/24 20:38 06/19/24 00:23 Ns 30 ml/kg infuse over 1 hr (2703 ml) 06/18/24 21:37 Infused IV Infusion .Q1H STA Insulin Human Regular 12 unit 06/18/24 20:38 06/18/24 21:10 Insulin Regular, Human 100 Unit/Ml 10 Ml Vial IVPUSH 06/18/24 20:39 12 unit ONCE ONE Administration Insulin Human Regular 5 unit 06/18/24 22:18 06/18/24 23:23 Insulin Regular, Human 100 Unit/Ml 10 Ml Vial IVPUSH 06/18/24 22:19 5 unit ONCE ONE Administration Iohexol 100 ml 06/18/24 22:59 06/18/24 23:00 Iohexol 350 Mg/Ml 100 Ml Infus..Btl IV 06/18/24 23:00 100 ml ONCE ONE Administration Medical Decision Making Medical Decision Making [facility] Narrative: 43 F presents with hyperglycemia and abd pain. Abd tender, pt profoundly hyperglycemic with bicarb 20, high anion gap but normal range pH. Severe hyperglycemic v HHS v DKA with concomitant alkalosis Pt also c/o vaginal sae persistent despite 2 fluconazole oral doses from PCP. Gluc likely affected by 3 wk prednisone for respiratory sx. Plan: aggressive hydration, IV insulin, topical antifungals. Repeated clinical reassessment. Lab Data [facility] Lab Attestation statement: I reviewed the patient's lab results. 06/18/24 19:58 06/19/24 00:44 Labs: Lab Results 06/18/24 06/18/24 06/18/24 Range/Units 19:39 19:58 20:43 WBC 11.6 H (4.8-10.8) X10*3/uL RBC 4.48 (4.20-5.50) X10*6/uL Hgb 13.4 (12.0-16.0) g/dl Hct 39.2 (37.0-47.0) % MCV 87.5 (80.0-98.0) fL MCH 29.9 (27.0-33.0) pg MCHC 34.2 (31.0-35.0) g/dl RDW 12.3 (11.0-16.0) % Plt Count 269 D (160-400) X10*3/uL MPV 9.7 (9.4-12.3) fL Immature Gran % (Auto) 0.3 (0.0-0.4) % Neut % (Auto) 53.0 (45-73) % Lymph % (Auto) 40.8 H (20-40) % Mineral % (Auto) 5.0 (2-11) % Eos % (Auto) 0.6 (0-4) % Baso % (Auto) 0.3 (0-2) % Lymph # (Auto) 4.8 (1.2-4.9) X10*3/uL Mineral # (Auto) 0.6 (0.1-1.2) X10*3/uL Eos # (Auto) 0.1 (0.0-0.4) X10*3/uL Baso # (Auto) 0.0 (0.0-0.2) X10*3/uL Abs Immat Gran (auto) 0.03 (0.00-0.03) X10*3/uL Absolute Neuts (auto) 6.2 (2.0-8.3) x10*3/uL Absolute Nucleated RBC 0.000 (0.0-0.012) X10*3/uL Nucleated RBC % (auto) 0.0 (0.0-0.2) /100WBC VBG pH (7.32-7.43) VBG pCO2 mmHg VBG pO2 mmHg VBG HCO3 (22-26) mmol/L VBG O2 Saturation % VBG Base Excess mmol/L Sodium 130 L (135-145) mmol/L Potassium 4.4 (3.3-5.1) mmol/L Chloride 93 L (96-108) mmol/L Carbon Dioxide 20 L (22-29) mmol/L Anion Gap 21 H (12-20) BUN 20 H (9-16) mg/dL Creatinine 1.09 (0.5-1.4) mg/dL Estim Creat Clear Calc 68.7 Estimated GFR 55 POC Glucose > 600 H* (60-115) mg/dL Random Glucose 628 H* (60-115) mg/dL Calcium 9.4 (8.4-10.2) mg/dL Total Bilirubin 0.7 (0.0-1.0) mg/dL AST 28 (5-31) U/L ALT 48 H (0-31) U/L Alkaline Phosphatase 77 (39-117) U/L Total Protein 8.0 (6.5-8.0) g/dL Albumin 4.1 (3.5-5.0) g/dL Beta-Hydroxybutyrate 3.08 H (0.02-0.27) mmol/L Urine Color Urine Appearance Urine pH (5.0-9.0) Ur Specific Phelps (1.005-1.025) Urine Protein (Neg-Trace) mg/dL Urine Glucose (UA) (Negative) mg/dL Urine Ketones (Negative) mg/dL Urine Blood (Negative) Urine Nitrite (Negative) Ur Leukocyte Esterase (Negative) Urine RBC (0-2) /HPF Urine WBC (0-5) /HPF Ur Squamous Epith Cells (0-2) /HPF Urine Bacteria (None Seen) Hyaline Casts (0-2) /LPF 06/18/24 06/18/24 06/18/24 Range/Units 20:45 20:53 22:14 WBC (4.8-10.8) X10*3/uL RBC (4.20-5.50) X10*6/uL Hgb (12.0-16.0) g/dl Hct (37.0-47.0) % MCV (80.0-98.0) fL MCH (27.0-33.0) pg MCHC (31.0-35.0) g/dl RDW (11.0-16.0) % Plt Count (160-400) X10*3/uL MPV (9.4-12.3) fL Immature Gran % (Auto) (0.0-0.4) % Neut % (Auto) (45-73) % Lymph % (Auto) (20-40) % Mineral % (Auto) (2-11) % Eos % (Auto) (0-4) % Baso % (Auto) (0-2) % Lymph # (Auto) (1.2-4.9) X10*3/uL Mineral # (Auto) (0.1-1.2) X10*3/uL Eos # (Auto) (0.0-0.4) X10*3/uL Baso # (Auto) (0.0-0.2) X10*3/uL Abs Immat Gran (auto) (0.00-0.03) X10*3/uL Absolute Neuts (auto) (2.0-8.3) x10*3/uL Absolute Nucleated RBC (0.0-0.012) X10*3/uL Nucleated RBC % (auto) (0.0-0.2) /100WBC VBG pH 7.39 (7.32-7.43) VBG pCO2 49 mmHg VBG pO2 32 mmHg VBG HCO3 30 H (22-26) mmol/L VBG O2 Saturation 46.0 % VBG Base Excess 4.2 mmol/L Sodium (135-145) mmol/L Potassium (3.3-5.1) mmol/L Chloride (96-108) mmol/L Carbon Dioxide (22-29) mmol/L Anion Gap (12-20) BUN (9-16) mg/dL Creatinine (0.5-1.4) mg/dL Estim Creat Clear Calc Estimated GFR POC Glucose 506 H* (60-115) mg/dL Random Glucose (60-115) mg/dL Calcium (8.4-10.2) mg/dL Total Bilirubin (0.0-1.0) mg/dL AST (5-31) U/L ALT (0-31) U/L Alkaline Phosphatase (39-117) U/L Total Protein (6.5-8.0) g/dL Albumin (3.5-5.0) g/dL Beta-Hydroxybutyrate (0.02-0.27) mmol/L Urine Color Yellow Urine Appearance Clear Urine pH 5.5 (5.0-9.0) Ur Specific Phelps >= 1.030 H (1.005-1.025) Urine Protein Negative (Neg-Trace) mg/dL Urine Glucose (UA) >=1000 H (Negative) mg/dL Urine Ketones 40 (Negative) mg/dL Urine Blood Negative (Negative) Urine Nitrite Negative (Negative) Ur Leukocyte Esterase Negative (Negative) Urine RBC 0-2 (0-2) /HPF Urine WBC 0-5 (0-5) /HPF Ur Squamous Epith Cells 3-5 (0-2) /HPF Urine Bacteria None Seen (None Seen) Hyaline Casts 0-2 (0-2) /LPF 06/19/24 Range/Units 00:44 WBC (4.8-10.8) X10*3/uL RBC (4.20-5.50) X10*6/uL Hgb (12.0-16.0) g/dl Hct (37.0-47.0) % MCV (80.0-98.0) fL MCH (27.0-33.0) pg MCHC (31.0-35.0) g/dl RDW (11.0-16.0) % Plt Count (160-400) X10*3/uL MPV (9.4-12.3) fL Immature Gran % (Auto) (0.0-0.4) % Neut % (Auto) (45-73) % Lymph % (Auto) (20-40) % Mineral % (Auto) (2-11) % Eos % (Auto) (0-4) % Baso % (Auto) (0-2) % Lymph # (Auto) (1.2-4.9) X10*3/uL Mineral # (Auto) (0.1-1.2) X10*3/uL Eos # (Auto) (0.0-0.4) X10*3/uL Baso # (Auto) (0.0-0.2) X10*3/uL Abs Immat Gran (auto) (0.00-0.03) X10*3/uL Absolute Neuts (auto) (2.0-8.3) x10*3/uL Absolute Nucleated RBC (0.0-0.012) X10*3/uL Nucleated RBC % (auto) (0.0-0.2) /100WBC VBG pH (7.32-7.43) VBG pCO2 mmHg VBG pO2 mmHg VBG HCO3 (22-26) mmol/L VBG O2 Saturation % VBG Base Excess mmol/L Sodium 136 (135-145) mmol/L Potassium 3.9 (3.3-5.1) mmol/L Chloride 104 (96-108) mmol/L Carbon Dioxide 23 (22-29) mmol/L Anion Gap 13 (12-20) BUN 16 (9-16) mg/dL Creatinine 0.81 (0.5-1.4) mg/dL Estim Creat Clear Calc 92.5 Estimated GFR > 60 POC Glucose (60-115) mg/dL Random Glucose 390 H* (60-115) mg/dL Calcium 7.9 L D (8.4-10.2) mg/dL Total Bilirubin (0.0-1.0) mg/dL AST (5-31) U/L ALT (0-31) U/L Alkaline Phosphatase (39-117) U/L Total Protein (6.5-8.0) g/dL Albumin (3.5-5.0) g/dL Beta-Hydroxybutyrate (0.02-0.27) mmol/L Urine Color Urine Appearance Urine pH (5.0-9.0) Ur Specific Phelps (1.005-1.025) Urine Protein (Neg-Trace) mg/dL Urine Glucose (UA) (Negative) mg/dL Urine Ketones (Negative) mg/dL Urine Blood (Negative) Urine Nitrite (Negative) Ur Leukocyte Esterase (Negative) Urine RBC (0-2) /HPF Urine WBC (0-5) /HPF Ur Squamous Epith Cells (0-2) /HPF Urine Bacteria (None Seen) Hyaline Casts (0-2) /LPF Independent Interpretation I performed an independent interpretation of an: Rhythm Strip Interpretation: sinus tachycardia Radiology Impression Discussion of test interpretation with radiology: I have reviewed the radiologist's reading. Independent Historian Clinical information obtained from an independent historian. History obtained from or confirmed by: Spouse External Record Review External record reviewed: Office record Prescription Management I considered prescription management with: Antibiotic and Other (metformin) Chronic Conditions Patient?s care impacted by: Diabetes Social Determinants Patient?s care significantly limited by Social Determinants of Health including: Low income and Other Social Determinant of Health Critical Care Time Critical Care Time Attestation: Critical Care Procedure Note Authorized and Performed by: Name I, Xavier Borja MD, independently performed critical care. Total critical care time: Approximately 40 minutes Due to a high probability of clinically significant, life threatening deterioration, the patient required my highest level of preparedness to intervene emergently and I personally spent this critical care time directly and personally managing the patient. This critical care time included obtaining a history; examining the patient; pulse oximetry; ordering and review of studies; arranging urgent treatment with development of a management plan; evaluation of patient's response to treatment; frequent reassessment; and, discussions with other providers. This critical care time was performed to assess and manage the high probability of imminent, life-threatening deterioration that could result in multi-organ failure. It was exclusive of separately billable procedures and treating other patients and teaching time. Brief narrative of care: HHS v DKA with concomitant alkalosis. pH normal however and glucose precitpitously dropped with aggressive crystalloid and IV insulin. Discharge Plan Discharge Clinical Impression: Acute hyperglycemia Patient Disposition: Home, Self-Care Instructions: Diabetic Hyperglycemia (ED) Additional Instructions: DISCHARGE DIAGNOSES: Hyperglycemia without diabetic ketoacidosis or other complication Vaginal candidiasis HISTORY OF PRESENTATION: abdominal pain, high blood glucose at home EMERGENCY DEPARTMENT COURSE,TESTS, TREATMENTS: While in the ED today you were given intravenous fluid as well as insulin intravenously. Your blood sugar came down appropriately but your discharged with still elevated blood sugar. Should stop all prednisone. Continue with the provided antifungal vaginal treatments we prescribed DISCHARGE MEDICATIONS: increase metformin to 1000 mg twice per day this prescription is written call your primary doctor or ware server thing Thursday morning to discuss your ED visit and high blood sugars in the setting of prednisone we have also prescribed clotrimazole for 3 days FOLLOW-UP: Call your primary or general physician soon as possible to discuss your symptoms, your ED visit and to discuss follow up plans call your primary do INSTRUCTIONS & RETURN PRECAUTIONS: If any symptoms change first call your primary physician, if it is after-hours your primary doctors office should have a provider global expansion sales director you can speak with. If the symptoms are severe or very concerning to you then call 911 or return to the ED. r] Xavier Borja MD Emergency Physician [facility] Prescriptions: New metformin 500 mg tablet 1,000 mg PO BID 14 Days Qty: 56 0RF Clotrimazole 3 Day 2 % cream 1 appful vaginal BEDTIME 3 Days Qty: 21 0RF No Action lidocaine-prilocaine 2.5-2.5 % cream 1 appl topical BID 30 Days Qty: 30 0RF Rx Instructions: Apply lightly to right upper abdomen and back topically cholecalciferol (vitamin D3) 50 mcg (2,000 unit) capsule 50 mcg PO DAILY Qty: 30 3RF esomeprazole magnesium [Nexium] 40 mg capsule,delayed release(DR/EC) 40 mg PO DAILY Qty: 30 5RF docusate sodium [Colace] 100 mg capsule 100 mg PO BID 10 Days Qty: 20 0RF ondansetron 4 mg tablet,disintegrating 4 mg PO Q6H PRN (Reason: nausea and vomiting) Qty: 14 0RF albuterol sulfate 90 mcg/actuation HFA aerosol inhaler 2 puff inhalation Q4-6H PRN (Reason: shortness of breath or wheezing) Qty: 6.7 0RF Trulicity 0.75 mg/0.5 mL pen injector 0.75 mg subcut QWEEK prednisone 20 mg tablet 40 mg PO DAILY PRN (Reason: pain/swelling) oxycodone-acetaminophen [Percocet] 5-325 mg tablet 1 tab PO Q4-6H PRN (Reason: pain) Qty: 25 0RF Rx Instructions: Partial Fill upon patient request. ibuprofen 600 mg tablet 600 mg PO Q6H PRN (Reason: pain) Qty: 30 0RF polyethylene glycol 3350 [Miralax] 17 gram/dose powder 17 g PO DAILY PRN (Reason: constipation) Qty: 238 0RF magnesium citrate Solution 300 ml PO DAILY PRN (Reason: constipation) Qty: 296 0RF benzonatate 200 mg capsule 200 mg PO TID PRN (Reason: cough) 5 Days Qty: 15 0RF venlafaxine 75 mg capsule,extended release 24hr 75 mg PO DAILY propranolol [Inderal LA] 120 mg capsule,extended release 24 hr 120 mg PO DAILY Elmiron 100 mg capsule 100 mg PO TID metformin 1,000 mg tablet 1,000 mg PO BID glipizide 2.5 mg tablet extended release 24hr 2.5 mg PO QAM docusate sodium 100 mg capsule 100 mg PO BEDTIME Qty: 90 3RF clotrimazole-betamethasone 1-0.05 % cream 1 appl topical BID 5 Days Qty: 45 0RF Cholestyramine Light 4 gram powder 4 g PO QIDACHS Qty: 239.4 3RF Rx Instructions: no meds 1 hr before/4-6 hr after dose Citrucel 500 mg tablet 500 mg PO DAILY Qty: 30 2RF Rx Instructions: take it with full glass of water bisacodyl [Dulcolax (bisacodyl)] 5 mg tablet,delayed release (DR/EC) 10 mg PO BEDTIME Qty: 180 4RF loperamide 2 mg capsule 2 mg PO Q6H PRN (Reason: loose stool) Qty: 20 0RF sucralfate 1 gram tablet 1 g PO BEDTIME Qty: 30 4RF Interventions: ED Discharge Assessment Last Done: 06/19/24 01:40 Discharge Date/Time: 06/19/24 01:40 Print Language: Greenlandic
[2024-06-18 22:18] LABS: Glucose, Whole Blood 506 mg/dL (60-115)
--- NOTE | 2024-06-18 22:55 | PC.NURSE ---
pt in CT, IV line infiltrated during testing. new line placed to R upper arm 20g
[2024-06-18 23:00] LABS: Beta-Hydroxybutyrate 3.08 mmol/L (0.02-0.27)
[2024-06-18] MEDS: iohexoL 350 MG/ML 100 ML INFUS..BTL IV (23:00)
[2024-06-18] MEDS: Insulin Regular, Human 100 UNIT/ML 10 ML VIAL IVPUSH (23:23)
[2024-06-18 23:26] VITALS: BP 123/71; PULSE 98; RESP 20; TEMP 36.5; O2SAT 98
[2024-06-19] VITALS: BP 123/71; PULSE 97; RESP 16; TEMP 36.2; O2SAT 98
[2024-06-19 01:11] LABS: Anion Gap 13 (12-20); Blood Urea Nitrogen 16 mg/dL (9-16); Calcium 7.9 mg/dL (8.4-10.2); Carbon Dioxide 23 mmol/L (22-29); Chloride 104 mmol/L (96-108); Creatinine Clr Calc Pharmacy 92.5; Estimated Glomerular Filt Rate > 60; Glucose Random 390 mg/dL (60-115); Potassium 3.9 mmol/L (3.3-5.1); Sodium 136 mmol/L (135-145)
[2024-06-19 01:31] VITALS: BP 103/63; PULSE 99; RESP 18; TEMP 36.6; O2SAT 98
[2024-06-19 01:40] VITALS: BP 103/63; PULSE 99; RESP 18; TEMP 36.6; O2SAT 98
== END 2024-06-19 01:40 | disposition home or self-care (01) ==
PROVIDERS: Emergency Provider Emergency Medicine; PCP Internal Medicine
DX: E11.65 Type 2 diabetes mellitus with hyperglycemia (principal); I10 Essential (primary) hypertension; Z79.84 Long term (current) use of oral hypoglycemic drugs; Z79.85 Long-term (current) use of injectable non-insulin antidiabetic drugs; Z87.891 Personal history of nicotine dependence
CPT/HCPCS: 36415; 74177; 80048; 80053; 81001; 82010; 82803; 82947; 85025; 99284; Q9967

== ENCOUNTER → 2024-06-18 22:18 | Outpatient (BNV) | payer OTHER, SELFPAY | PROVIDERS: Emergency Provider Emergency Medicine; PCP Internal Medicine; Visit Provider Radiology Diagnostic Radiology | DX: R10.9 Unspecified abdominal pain (principal); R30.0 Dysuria | CPT/HCPCS: 74177 ==

== ENCOUNTER 2024-06-22 12:29 | Emergency (ER) | payer OTHER, SELFPAY ==
[2024-06-22 12:30] VITALS: BP 129/86; PULSE 122; RESP 20; TEMP 36.3; O2SAT 100; BMI 34.0
--- NOTE | 2024-06-22 12:36 | ED_ITS ---
HPI - General Adult General Chief complaint: General Medical Stated complaint: High blood sugar, altered Time Seen by Provider: 06/22/24 12:57 History of Present Illness ED Provider: Efe FERMIN narrative: The patient is a 43-year-old woman with type 2 diabetes. She seems to be on metformin and glipizide. She is here with her . They report that her blood sugar has been poorly controlled. She feels that her mouth is always dry. She feels that this leads to a sense of difficulty speaking. She feels that she is also somewhat confused. She has felt this way for about a week. The patient was here in the emergency room 4 days ago on June 18 for hyperglycemia. She has been on prednisone for her lungs apparently. The patient feels that her symptoms have continued after she was treated in the emergency room 4 days ago and now she is having a sense of numbness in her arms and her in her right leg as well. She has not had a fever. She has chronic right flank pain. Related Data Home Medications ?Medication ?Instructions ?Recorded ?Confirmed pentosan polysulfate sodium 100 mg 100 mg PO TID 05/21/20 06/10/23 capsule (Elmiron) propranolol 120 mg capsule,24 120 mg PO DAILY 05/21/20 06/10/23 hr,extended release (Inderal LA) venlafaxine 75 mg capsule,extended 75 mg PO DAILY 05/21/20 06/10/23 release 24 hr glipizide 2.5 mg tablet, extended 2.5 mg PO QAM 10/22/20 06/10/23 release 24 hr metformin 1,000 mg tablet 1,000 mg PO BID 10/22/20 06/10/23 dulaglutide 0.75 mg/0.5 mL 0.75 mg subcut QWEEK 06/10/23 06/10/23 subcutaneous pen injector (Trulicity) prednisone 20 mg tablet 40 mg PO DAILY PRN pain/swelling 06/10/23 06/10/23 Previous Rx's ?Medication ?Instructions ?Recorded lidocaine-prilocaine 2.5 %-2.5 % 1 appl topical BID 30 days #30 04/19/20 topical cream grams cholecalciferol (vitamin D3) 50 50 mcg PO DAILY #30 caps 11/27/20 mcg (2,000 unit) capsule docusate sodium 100 mg capsule 100 mg PO BEDTIME #90 caps 08/05/21 clotrimazole-betamethasone 1 1 appl topical BID 5 days #45 grams 01/28/22 %-0.05 % topical cream ondansetron 4 mg disintegrating 4 mg PO Q6H PRN nausea and 04/23/22 tablet vomiting #14 tabs methylcellulose (laxative) 500 mg 500 mg PO DAILY #30 tabs 06/04/22 tablet (Citrucel) cholestyramine-aspartame 4 gram 4 g PO QIDACHS #239.4 grams 06/13/22 oral powder (Cholestyramine Light) bisacodyl 5 mg tablet,delayed 10 mg (2 x 5 mg) PO BEDTIME #180 10/27/22 release (Dulcolax (bisacodyl)) tabs loperamide 2 mg capsule 2 mg PO Q6H PRN loose stool #20 10/27/22 caps sucralfate 1 gram tablet 1 g PO BEDTIME #30 tabs 10/27/22 magnesium citrate 300 ml PO DAILY PRN constipation 02/03/23 #296 mL polyethylene glycol 3350 17 17 g PO DAILY PRN constipation 02/03/23 gram/dose oral powder (Miralax) #238 grams albuterol sulfate 90 mcg/actuation 2 puff inhalation Q4-6H PRN 04/14/23 aerosol inhaler shortness of breath or wheezing #6.7 grams esomeprazole magnesium 40 mg 40 mg PO DAILY #30 caps 05/12/23 capsule,delayed release (Nexium) ibuprofen 600 mg tablet 600 mg PO Q6H PRN pain #30 tabs 06/30/23 oxycodone-acetaminophen 5 mg-325 1 tab PO Q4-6H PRN pain #25 tabs 06/30/23 mg tablet (Percocet) docusate sodium 100 mg capsule 100 mg PO BID constipation 10 days 07/02/23 (Colace) #20 caps benzonatate 200 mg capsule 200 mg PO TID PRN cough 5 days #15 08/23/23 caps clotrimazole 2 % vaginal cream 1 appful vaginal BEDTIME 3 days 06/19/24 (Clotrimazole 3 Day) #21 grams metformin 500 mg tablet 1,000 mg (2 x 500 mg) PO BID 2 06/19/24 weeks #56 tabs Allergies Allergy/AdvReac Type Severity Reaction Status Date / Time oxycodone [Percocet] Allergy Mild hives Verified 06/22/24 12:37 Review of Systems 2 Review of Systems: Yes all other systems are reviewed and are negative [facility] Past Medical History Medical History Umbilical hernia Adenocarcinoma of cervix Transaminitis Diabetes 1.5, 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 Hepatic steatosis IBS (irritable colon syndrome) GERD (gastroesophageal reflux disease) Hypertension Surgical History Hx laparoscopic cholecystectomy Hx of tubal ligation Hx of exploratory laparotomy Hx of cystoscopy Hx of laparoscopy Hx of colonoscopy (~2017) History of esophagogastroduodenoscopy (EGD) (~2017) H/O: hysterectomy (~2018) Family History Family History Father Diabetes FH: stomach cancer FH: cancer FHx: hypercholesterolemia Cancer Brother FH: stomach cancer Cancer Mother FH: depression FH: diabetes mellitus FH: cancer Maternal Uncle Cancer FH: cancer Sister Cancer Paternal Grandfather Family history of colon cancer Social History Social History Household Members: Spouse Are you a primary healthcare corporate account director to a significant other at home: No Do you presently have visiting nurse or other home services: No Alcohol intake: current Alcohol intake frequency: does not drink Patient Tobacco Use Status: Former Tobacco user Tobacco use type: Cigarette Advance Directives: No Advance Directives Information Provided: Yes Do you have a plan to hurt others: No Plan Current occupational status: unemployed Sexual orientation: Straight/Heterosexual Gender identity: Female Physical Exam ED Vital Signs: Vital Signs - 24 hr 06/22/24 12:30 06/22/24 14:28 06/22/24 16:53 Temperature 97.3 F 97.7 F Pulse Rate 122 H 99 102 H Respiratory Rate 20 31 H 14 Blood Pressure 129/86 121/66 Pulse Oximetry 100 99 Oxygen Delivery Method Room Air Room Air BMI result Body Mass Index 34.0 Const Other: The patient is awake and alert. She looks somewhat weak. Her mouth sounds very dry. HENMT Other: Face is symmetrical. Mucous membranes are moist. Tongue is midline. Mucous membranes slightly dry. Eyes Other: Pupils are round equal, conjunctivae are clear, extraocular movements intact. Neck Neck: Yes full ROM and Yes no JVD Resp Effort & Inspection: normal respiratory effort Auscultation: clear to auscultation bilaterally Cardio Rate: tachycardic Rhythm: regular rhythm Heart sounds: S1 normal heart sound present and S2 normal heart sound present GI Other: Abdomen is soft and nontender Skin Other: Skin is pale and dry Neuro Other: The patient is awake and alert. Eye movements are intact. Face seems symmetrical. Tongue is midline. Speech seems clear. She moves her extremities symmetrically. I do not feel this any unilateral weakness. No pronator drift. Gait is not frankly unsteady. Extrem Other: No peripheral edema. No asymmetry to the calves. No tenderness. Course Course Course Narrative: This is a Rapid Medical Examination (RME) performed by Frannie Duron PA-C in triage. Full HPI, ROS, assessment and treatment plan per primary provider in the Main ED. 43 yo female hx of GERD, HTN, DM here for eval of elevated BS at home. monitor reading high . reports confusion, dizziness, x1 week, dry mouth. numbness to right leg and both UE which began sometime this morning (cannot give me a time). not on AC. + dr. rutledge in triage to eval patient. poc glucose 505. 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 Plan: labs, UA, vbg, viral swabs Medications Administered Discontinued Medications Generic Name Dose Route Start Last Admin Trade Name Freq PRN Reason Stop Dose Admin Sodium Chloride 1,000 mls @ 999 mls/hr 06/22/24 13:30 06/22/24 16:35 Ns IV 06/22/24 14:30 Infused .Q1H1M AYAZ Infusion Sodium Chloride 1,000 mls @ 999 mls/hr 06/22/24 15:15 06/22/24 17:56 Ns IV 06/22/24 16:15 Infused .Q1H1M AYAZ Infusion Medical Decision Making Medical Decision Making [facility] Narrative: The patient is a 43-year-old woman with type 2 diabetes. She currently takes 1000 mg of metformin 2 times a day and also glipizide. She has had high blood sugars recently. On arrival today her blood sugar was 505. She complained of feeling weak and dizzy with a variety of very nonspecific complaints as well. Clinically she looked somewhat dehydrated but not severely so. Her labs show that her creatinine went from 0.8-1 point when 9. This works out to an estimated GFR of 49. This might indicate some degree of dehydration. She was given 2 Liters of crystalloid . No significant metabolic derangements other than hyperglycemia were identified. After 2 L of fluid blood sugar came down to 235. She looked much better. She felt much better. I felt she was appropriate for discharge. I tried to reach her primary care doctor or coverage for advice about perhaps expanding the patient's diabetic regimen but was not able to reach anybody. The patient will be instructed to watch her diet and reduce sugars and carbohydrates while waiting for follow up with the regular doctor for ongoing diabetic care. Lab Data 06/22/24 13:30 06/22/24 13:30 Labs: Lab Results 06/22/24 06/22/24 06/22/24 Range/Units 12:42 13:05 13:30 WBC 6.8 (4.8-10.8) X10*3/uL RBC 4.33 (4.20-5.50) X10*6/uL Hgb 12.9 (12.0-16.0) g/dl Hct 38.5 (37.0-47.0) % MCV 88.9 (80.0-98.0) fL MCH 29.8 (27.0-33.0) pg MCHC 33.5 (31.0-35.0) g/dl RDW 12.4 (11.0-16.0) % Plt Count 226 (160-400) X10*3/uL MPV 10.0 (9.4-12.3) fL Immature Gran % (Auto) 0.3 (0.0-0.4) % Neut % (Auto) 55.7 (45-73) % Lymph % (Auto) 36.3 (20-40) % [place] % (Auto) 6.9 (2-11) % Eos % (Auto) 0.7 (0-4) % Baso % (Auto) 0.1 (0-2) % Lymph # (Auto) 2.5 (1.2-4.9) X10*3/uL [place] # (Auto) 0.5 (0.1-1.2) X10*3/uL Eos # (Auto) 0.1 (0.0-0.4) X10*3/uL Baso # (Auto) 0.0 (0.0-0.2) X10*3/uL Abs Immat Gran (auto) 0.02 (0.00-0.03) X10*3/uL Absolute Neuts (auto) 3.8 (2.0-8.3) x10*3/uL Absolute Nucleated RBC 0.000 (0.0-0.012) X10*3/uL Nucleated RBC % (auto) 0.0 (0.0-0.2) /100WBC VBG pH (7.32-7.43) VBG pCO2 mmHg VBG pO2 mmHg VBG HCO3 (22-26) mmol/L VBG O2 Saturation % VBG Base Excess mmol/L Sodium 133 L (135-145) mmol/L Potassium 4.6 (3.3-5.1) mmol/L Chloride 100 (96-108) mmol/L Carbon Dioxide 24 (22-29) mmol/L Anion Gap 14 (12-20) BUN 11 (9-16) mg/dL Creatinine 1.19 (0.5-1.4) mg/dL Estim Creat Clear Calc 60.8 Estimated GFR 49 POC Glucose 505 H* 491 H* (60-115) mg/dL Random Glucose 492 H* (60-115) mg/dL Calcium 9.4 D (8.4-10.2) mg/dL Magnesium 1.9 (1.6-2.6) mg/dL Total Bilirubin 0.6 (0.0-1.0) mg/dL AST 30 (5-31) U/L ALT 48 H (0-31) U/L Alkaline Phosphatase 68 (39-117) U/L C-Reactive Protein 0.76 H (< or = 0.50) mg/dL Total Protein 7.7 (6.5-8.0) g/dL Albumin 3.9 (3.5-5.0) g/dL Beta-Hydroxybutyrate 1.96 H (0.02-0.27) mmol/L Influenza Type A (PCR) NEGATIVE (Negative) Influenza Type B (PCR) NEGATIVE (Negative) RSV RNA Qual (PCR) NEGATIVE (Negative) SARS-CoV-2 RNA (RT-PCR) NEGATIVE (Negative) 06/22/24 06/22/24 06/22/24 Range/Units 13:34 15:22 16:41 WBC (4.8-10.8) X10*3/uL RBC (4.20-5.50) X10*6/uL Hgb (12.0-16.0) g/dl Hct (37.0-47.0) % MCV (80.0-98.0) fL MCH (27.0-33.0) pg MCHC (31.0-35.0) g/dl RDW (11.0-16.0) % Plt Count (160-400) X10*3/uL MPV (9.4-12.3) fL Immature Gran % (Auto) (0.0-0.4) % Neut % (Auto) (45-73) % Lymph % (Auto) (20-40) % [place] % (Auto) (2-11) % Eos % (Auto) (0-4) % Baso % (Auto) (0-2) % Lymph # (Auto) (1.2-4.9) X10*3/uL [place] # (Auto) (0.1-1.2) X10*3/uL Eos # (Auto) (0.0-0.4) X10*3/uL Baso # (Auto) (0.0-0.2) X10*3/uL Abs Immat Gran (auto) (0.00-0.03) X10*3/uL Absolute Neuts (auto) (2.0-8.3) x10*3/uL Absolute Nucleated RBC (0.0-0.012) X10*3/uL Nucleated RBC % (auto) (0.0-0.2) /100WBC VBG pH 7.38 (7.32-7.43) VBG pCO2 45 mmHg VBG pO2 36 mmHg VBG HCO3 27 H (22-26) mmol/L VBG O2 Saturation 53.0 % VBG Base Excess 2.2 mmol/L Sodium (135-145) mmol/L Potassium (3.3-5.1) mmol/L Chloride (96-108) mmol/L Carbon Dioxide (22-29) mmol/L Anion Gap (12-20) BUN (9-16) mg/dL Creatinine (0.5-1.4) mg/dL Estim Creat Clear Calc Estimated GFR POC Glucose 252 H 235 H (60-115) mg/dL Random Glucose (60-115) mg/dL Calcium (8.4-10.2) mg/dL Magnesium (1.6-2.6) mg/dL Total Bilirubin (0.0-1.0) mg/dL AST (5-31) U/L ALT (0-31) U/L Alkaline Phosphatase (39-117) U/L C-Reactive Protein (< or = 0.50) mg/dL Total Protein (6.5-8.0) g/dL Albumin (3.5-5.0) g/dL Beta-Hydroxybutyrate (0.02-0.27) mmol/L Influenza Type A (PCR) (Negative) Influenza Type B (PCR) (Negative) RSV RNA Qual (PCR) (Negative) SARS-CoV-2 RNA (RT-PCR) (Negative) Discharge Plan Discharge Clinical Impression: Hyperglycemia, Type 2 diabetes mellitus Patient Disposition: Home, Self-Care Instructions: Mediterranean Diet (DC) Additional Instructions: Continue taking your metformin and your glipizide. Please contact your regular doctor's office tomorrow morning to see if she has any covering provider who might be able to give you additional advice about glucose control. In the meantime try to reduce sugars and carbohydrates from your diet as much as you can. Please read the associated material regarding the Mediterranean diet. Avoid sodas or other sugary beverages. Follow up as soon as you can with your regular doctor. Return to the emergency room if worse. Prescriptions: No Action lidocaine-prilocaine 2.5-2.5 % cream 1 appl topical BID 30 Days Qty: 30 0RF Rx Instructions: Apply lightly to right upper abdomen and back topically cholecalciferol (vitamin D3) 50 mcg (2,000 unit) capsule 50 mcg PO DAILY Qty: 30 3RF esomeprazole magnesium [Nexium] 40 mg capsule,delayed release(DR/EC) 40 mg PO DAILY Qty: 30 5RF docusate sodium [Colace] 100 mg capsule 100 mg PO BID 10 Days Qty: 20 0RF ondansetron 4 mg tablet,disintegrating 4 mg PO Q6H PRN (Reason: nausea and vomiting) Qty: 14 0RF albuterol sulfate 90 mcg/actuation HFA aerosol inhaler 2 puff inhalation Q4-6H PRN (Reason: shortness of breath or wheezing) Qty: 6.7 0RF metformin 500 mg tablet 1,000 mg PO BID 14 Days Qty: 56 0RF Clotrimazole 3 Day 2 % cream 1 appful vaginal BEDTIME 3 Days Qty: 21 0RF Trulicity 0.75 mg/0.5 mL pen injector 0.75 mg subcut QWEEK prednisone 20 mg tablet 40 mg PO DAILY PRN (Reason: pain/swelling) oxycodone-acetaminophen [Percocet] 5-325 mg tablet 1 tab PO Q4-6H PRN (Reason: pain) Qty: 25 0RF Rx Instructions: Partial Fill upon patient request. ibuprofen 600 mg tablet 600 mg PO Q6H PRN (Reason: pain) Qty: 30 0RF polyethylene glycol 3350 [Miralax] 17 gram/dose powder 17 g PO DAILY PRN (Reason: constipation) Qty: 238 0RF magnesium citrate Solution 300 ml PO DAILY PRN (Reason: constipation) Qty: 296 0RF benzonatate 200 mg capsule 200 mg PO TID PRN (Reason: cough) 5 Days Qty: 15 0RF venlafaxine 75 mg capsule,extended release 24hr 75 mg PO DAILY propranolol [Inderal LA] 120 mg capsule,extended release 24 hr 120 mg PO DAILY Elmiron 100 mg capsule 100 mg PO TID metformin 1,000 mg tablet 1,000 mg PO BID glipizide 2.5 mg tablet extended release 24hr 2.5 mg PO QAM docusate sodium 100 mg capsule 100 mg PO BEDTIME Qty: 90 3RF clotrimazole-betamethasone 1-0.05 % cream 1 appl topical BID 5 Days Qty: 45 0RF Cholestyramine Light 4 gram powder 4 g PO QIDACHS Qty: 239.4 3RF Rx Instructions: no meds 1 hr before/4-6 hr after dose Citrucel 500 mg tablet 500 mg PO DAILY Qty: 30 2RF Rx Instructions: take it with full glass of water bisacodyl [Dulcolax (bisacodyl)] 5 mg tablet,delayed release (DR/EC) 10 mg PO BEDTIME Qty: 180 4RF loperamide 2 mg capsule 2 mg PO Q6H PRN (Reason: loose stool) Qty: 20 0RF sucralfate 1 gram tablet 1 g PO BEDTIME Qty: 30 4RF Interventions: ED Discharge Assessment Last Done: 06/22/24 18:10 Print Language: Japanese
--- NOTE | 2024-06-22 12:42 | ECG_ITS ---
Test Reason : dizziness Blood Pressure : */* mmHG Vent. Rate : 113 BPM Atrial Rate : 113 BPM P-R Int : 118 ms QRS Dur : 80 ms QT Int : 324 ms P-R-T Axes : 18 31 18 degrees QTcB Int : 444 ms Sinus tachycardia Otherwise normal ECG When compared with ECG of 28-Sep-2018 10:45, Vent. rate has increased by 44 bpm Nonspecific T wave abnormality now evident in Anterior leads Referred By: Twila Duron Electronically Signed By: Zane Vizcarra
[2024-06-22 13:15] LABS: Glucose, Whole Blood 491 mg/dL (60-115)
[2024-06-22 13:21] LABS: Glucose, Whole Blood 505 mg/dL (60-115)
[2024-06-22] MEDS: 0.9 % Sodium Chloride 1,000 ML 999 ML IV ×2 (13:32→15:56)
[2024-06-22 13:35] LABS: MANUAL DIFF FLAG NO
[2024-06-22 13:36] LABS: Basophils Percent Auto 0.1 % (0-2); Eosinophils Absolute Auto 0.1 X10*3/uL (0.0-0.4); Eosinophils Percent Auto 0.7 % (0-4); Hematocrit 38.5 % (37.0-47.0); Hemoglobin 12.9 g/dl (12.0-16.0); Imm Gran Abs Auto 0.02 X10*3/uL (0.00-0.03); Imm Gran Pct Auto 0.3 % (0.0-0.4); Lymphocytes Absolute Auto 2.5 X10*3/uL (1.2-4.9); Lymphocytes Percent Auto 36.3 % (20-40); Mean Corpuscular HGB Conc 33.5 g/dl (31.0-35.0); Mean Corpuscular Hemoglobin 29.8 pg (27.0-33.0); Mean Corpuscular Volume 88.9 fL (80.0-98.0); Monocytes Absolute Auto 0.5 X10*3/uL (0.1-1.2); Monocytes Percent Auto 6.9 % (2-11); Neutrophils Absolute Auto 3.8 x10*3/uL (2.0-8.3); Neutrophils Percent Auto 55.7 % (45-73); Platelet Count 226 X10*3/uL (160-400); Red Blood Count 4.33 X10*6/uL (4.20-5.50); Red Cell Distribution Width 12.4 % (11.0-16.0); White Blood Count 6.8 X10*3/uL (4.8-10.8)
[2024-06-22 13:39] LABS: VBG Base Excess 2.2 mmol/L; VBG HCO3 27 mmol/L (22-26); VBG pCO2 45 mmHg; VBG pH 7.38 (7.32-7.43); VBG pO2 36 mmHg
[2024-06-22 13:40] LABS: Venous Blood Gas Refer to POC result
[2024-06-22 13:48] LABS: C Reactive Protein 0.76 mg/dL (< or = 0.50)
[2024-06-22 13:54] LABS: Alanine Aminotransferase 48 U/L (0-31); Albumin Level 3.9 g/dL (3.5-5.0); Alkaline Phosphatase 68 U/L (39-117); Anion Gap 14 (12-20); Aspartate Amino Transferase 30 U/L (5-31); Bilirubin Total 0.6 mg/dL (0.0-1.0); Blood Urea Nitrogen 11 mg/dL (9-16); Calcium 9.4 mg/dL (8.4-10.2); Carbon Dioxide 24 mmol/L (22-29); Chloride 100 mmol/L (96-108); Creatinine Clr Calc Pharmacy 60.8; Estimated Glomerular Filt Rate 49; Glucose Random 492 mg/dL (60-115); Magnesium 1.9 mg/dL (1.6-2.6); Potassium 4.6 mmol/L (3.3-5.1); Sodium 133 mmol/L (135-145); Total Protein 7.7 g/dL (6.5-8.0)
[2024-06-22 14:05] LABS: Beta-Hydroxybutyrate 1.96 mmol/L (0.02-0.27)
[2024-06-22 14:20] LABS: Influenza A PCR NEGATIVE (Negative); Influenza B PCR NEGATIVE (Negative); Resp Syncy Virus RNA Qual PCR NEGATIVE (Negative); SARS COV2 PCR INHOUSE NEGATIVE (Negative)
--- OUTSIDE RECORDS SUMMARY | 2024-06-22 14:20 | XMS_ITS | Continuity of Care Document ---
Author Organization [facility] [employer] [place] [facility] Address [address] [place] [phone] Assessment No assessment recorded. Plan of Treatment Reminders Order Date Submit Date Provider Last Modified By Organization Details Last Modified Time Details Appointments None recorded. Lab glucose, fingerstic k, blood 2024 025 [facility], [address] [place] [address], [id number], 5 21:34:56 urinalysis , dipstick 2024 025 [facility], [address] [place] [address], [id number], 5 21:35:45 BMP, serum or plasma 2024 025 [facility], [address] [place] [address], [phone], 5 21:37:02 Referral None recorded. Procedures None recorded. Surgeries None recorded. Imaging None recorded. Medication Orders None recorded. Patient TargetsNo targets recorded. Patient InstructionsNo instructions recorded. Reason for Referral None Reported. Results Created Date Observation Date Name Description Value Unit Range Abnormal Flag Note LastModifiedBy Organization Detail LastModifiedTime Result Notes None recorded. Medical Equipment None Reported. Allergies No known drug allergies Medications Name Sig Start Date Stop Date Status Note LastModified by Organization Details LastModified Time losartan 50 mg tablet TAKE 1 TABLET BY MOUTH EVERY DAY active Not Available Not Available No t Available atorvastatin 20 mg tablet TAKE 1 TABLET BY MOUTH EVERY DAY active Not Available Not Available No t Available venlafaxine 75 mg tablet TAKE 1 TABLET BY MOUTH EVERY DAY active Not Available Not Available No t Available atorvastatin 10 mg tablet TAKE 1 TABLET BY MOUTH EVERY DAY active Not Available Not Available No t Available azithromycin 250 mg tablet TAKE 2 TABLETS BY MOUTH TODAY, THEN TAKE 1 TABLET DAILY FOR 4 DAYS DIRECTED active Not Available Not Available No t Available pravastatin 40 mg tablet TAKE 1 TABLET BY MOUTH EVERYDAY AT BEDTIME active Not Available Not Available No t Available fluconazole 150 mg tablet TAKE 1 TABLET BY MOUTH ONCE, REPEAT IN 3 DAYS IF SYMPTOMS PERSIST active Not Available Not Available No t Available benzonatate 200 mg capsule TAKE 1 CAPSULE BY MOUTH 3 TIMES A DAY NEEDED FOR 5 DAYS active Not Available Not Available N ot Available tolterodine ER 4 mg capsule,exte nded release 24 hr TAKE 1 CAPSULE BY MOUTH EVERY DAY active Not Available Not Available No t Available metronidazol e 0.75 % (37.5 mg/5 gram) vaginal gel INSERT 1 APPLICATORF UL VAGINALLY AT BEDTIME FOR 5 DAYS active Not Available Not Available N ot Available prednisone 20 mg tablet TAKE 1 TABLET BY MOUTH TWICE A DAY FOR 5 DAYS THEN 1 TABLET DAILY FOR 5 active Not Available Not Available Not Available hydroxyzine pamoate 50 mg capsule TAKE 1 CAPSULE BY MOUTH TWICE A DAY NEEDED active Not Available Not Available No t Available oxycodone-ac etaminophen 5 mg-325 mg tablet active Not Available Not Available Not Available dicyclomine 20 mg tablet TAKE 1 TABLET BY MOUTH THREE TIMES A DAY NEEDED FOR ABDOMINAL PAIN active Not Available Not Available No t Available glipizide ER 2.5 mg tablet, extended release 24 hr TAKE 1 TABLET BY MOUTH EVERY DAY active Not Available Not Available No t Available metformin 1,000 mg tablet TAKE 1 TABLET BY MOUTH TWICE A DAY active Not Available Not Available No t Available diclofenac sodium 75 mg tablet,delay ed release TAKE 1 TABLET BY MOUTH TWICE A DAY active Not Available Not Available No t Available propranolol ER 120 mg capsule,24 hr,extended release TAKE 1 CAPSULE BY MOUTH EVERY DAY active Not Available Not Available No t Available ibuprofen 600 mg tablet active Not Available Not Available Not Available albuterol sulfate HFA 90 mcg/actuatio n aerosol inhaler TAKE 2 PUFFS BY MOUTH 4 TIMES A DAY NEEDED active Not Available Not Available No t Available fluticasone propionate 50 mcg/actuatio n nasal spray,suspen shanda SPRAY 1 SPRAY INTO EACH NOSTRIL ONCE A DAY active Not Available Not Available N ot Available loratadine 10 mg tablet TAKE 1 TABLET BY MOUTH EVERY DAY active Not Available Not Available No t Available nitrofuranto in monohydrate/ macrocrystal s 100 mg capsule TAKE 1 CAPSULE BY MOUTH TWICE A DAY FOR 5 DAYS active Not Available Not Available No t Available Januvia 100 mg tablet TAKE 1 TABLET BY MOUTH EVERY DAY active Not Available Not Available No t Available FreeStyle Lite Strips USE TO TEST TWICE DAILY active Not Available Not Available Not Available Trulicity 1.5 mg/0.5 mL subcutaneous pen injector INJECT 1 PREFILLED PEN SUBCUTANEOU SLY ONCE A WEEK active Not Available Not Available No t Available Trulicity 0.75 mg/0.5 mL subcutaneous pen injector INJECT 0.75 MG UNDER THE SKIN ONCE A WEEK active Not Available Not Available Not Available Arnuity Ellipta 100 mcg/actuatio n powder for inhalation TAKE 1 PUFF BY MOUTH EVERY 24 HOURS active Not Available Not Available No t Available Vitals Date Recorded Oxygen saturation Oxygen saturation in Arterial blood by Pulse oximetry Body weight Body height Heart rate Respiratory rate Body temperature Systolic blood pressure Diastolic blood pressure Provider Name and Address Organization Details Last Updated DateTime 5 98 % 98 % 33556.7 2 g 157.48 cm 119 /min 16 /min 97.8 [degF] 115 mm[Hg] 80 mm[Hg] Not Available [employer]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 Functional Status None recorded. Mental Status None recorded. Family History Nothing Reported. Medical History No medical history recorded. Gynecological HistoryNo gynecological history recorded. Obstetrics History GPAL:G 0 P 0 0 0 0 Past Encounters Encounter ID Performer Location Encounter Start Date Encounter Closed Date Diagnosis/Indication Diagnosis SNOMED-CT Code Diagnosis ICD10 Code Diagnosis Note [id number] ADAM VARGAS MD [facility] - [facility] [address] [place] [phone] 06/18/2024 18:24:48 06/21/2024 16:18:54 Hyperglycemia due to type 2 diabetes mellitus [id number] E11.65 Evaluation in the field was performed by my animal laboratory technician colleague, as noted above, I provided real-time direction and supervisio n for this visit. The evaluation revealed a 43-year-ol d female with a past medical history of asthma and type 2 diabetes mellitus, presenting with dizziness and elevated blood glucose levels. The patient reports being treated with prednisone for asthma/bro nchitis, which led to hyperglyce tatiana, prompting her to discontinu e it three days ago. Despite stopping prednisone , her blood glucose levels remain elevated, with one recorded reading of 447 mg/dL and consistent ly high readings thereafter . She has taken 1,000 mg of metformin today and has been consuming large amounts of water. She also reports polyuria today. Additional ly, the patient is being treated for a possible yeast infection with fluconazol e, having taken one dose yesterday. She describes significan t dizziness, feeling as if the room is spinning, both while sitting and standing. She denies seeing spots or blurry vision. She also denies chest pain, shortness of breath, nausea, vomiting, diarrhea, fever, or chills. However, she complains of left/right lower quadrant abdominal pain and lower back pain. VS: 115/ 80 , HR 119 /bpm, RR 16 /min. SpO2 98%, Room AirTempera tures 97.8 ? ? ?FExam : The patient is alert and oriented but in mild distress, with tachycardi a noted. Lungs are clear to auscultati on. The abdominal exam reveals diffuse lower abdominal tenderness to palpation. There is bilateral CVA tenderness and lumbar discomfort with palpation. The remainder of the physical examinatio n is unremarkab le.Sodium : 130 mmol/L (corrected : 137 mmol/L)Bic arbonate (TCO? ) : 24 mmol/LGluc ose: 562 mg/dLBUN: 20 mg/dLCreat inine : 1.0 mg/dLHemat ocrit (Hct): 46%Hemoglo bin (Hb): 15.6 g/dLAllerg ies reviewed. Impression :Severe hyperglyce tatiana without evidence of diabetic ketoacidos is (DKA), given a bicarbonat e level of 24 mmol/L. The patient? s presentat ion is concerning for a possible infection, such as a urinary tract infection , as evidenced by lower abdominal pain and CVA tenderness , despite the absence of typical urinary symptoms. This may be contributi ng to hyperglyce tatiana in the setting of recent steroid use, though the steroid? s effects would be expected to diminish after three days. Plan:-Due to lack of available insulin and the patient being managed solely on oral hypoglycem ics, transfer to the Emergency Department for further evaluation and management . An expect was called at [facility] Primary care, consider__ _ Dispositio n:We discussed the situation and I recommende d referral to the emergency department . Health Concerns Section Related Observation LastModified by Organization Detai ls LastModified Time None Recorded Concern Status LastModified by Organization Details LastModified Time None Recorded Payers Encounter Date Sequence Insurance Name Policy Number Policy Alonso Covered Member ID Alonso Member ID Guarantor Name 06/18/2024 1 [facility] - DOS ON OR AFTER 2022 - DUAL ELIGIBLE - [facility] OPTIONS AND ONE CARE (MEDICARE REPLACEMENT/ADV ANTAGE - HMO) Lulu Mulligan [id number] Lulu Mulligan Notes Date Note Type Note Provider Name and Address Organization Details Recorded Time 06/18/2024 text/html HPI: Member's calling with concern for member. Member with high blood sugars and c/o dry mouth. Per member recently on prednisone due to asthma flare up. glucometer only reading high. Member alert and oriented, but not feeling well. .................. .................. .................. .................. .................. .................. .................. ............... [facility] Nurse Triage Notes (Tanja Hernandez - CHER[facility]E): Chief Complaints: Diabetes-related PMH: Asthma, Diabetes Mellitus Type 2 PMH Reviewed at 06/18/2024 - 13:36 Allergies Reviewed at 06/18/2024 - 13:36 Comments: HPI reviewed, RN tried to reach out to member to further assess. Unable to get in touch with member. Compliance Spec Organization Information for Corey Servin Legal Name: [employer] Address: [address] [place] [address], Strip Winder: Hugo Luna MD CLIA No.: [id number] Compliance Spec POC Test Results from Corey Servin Blood Glucose Measurement (18:45:44) Blood Glucose: 547 mg/dL iSTAT Chem8+ (18:46:02) Na: 130 mEq/L K: 4.5 mEq/L Cl: 91 mEq/L iCa: 1.18 mmol/L TCO2: 24 mmol/L Glu: 562 mg/dL BUN: 20 mg/dL Crea: 1.0 mg/dL Hct: 46 % Hb: 15.6 g/dL A .................. .................. .................. .................. .................. .................. .................. ............... Compliance Spec Note From Corey Servin: [facility] makes pt contact. She walks in to the living room of the small and cramped apartment. She is moving slowly, but her gait is normal. Her chest is rising and falling softly w/ each respiration, no facial droop, slurred speech, or one-sided weakness are observed, and she is not bleeding anywhere. Pt endorses very high cbg all day today. She had one reading at 447 and the remaining readings have all read high for her. She says she has taken 1000mg of metformin already today and has been consuming copious amounts of bottled water. She also endorses polyurea today. She has not been sick, however, she is being treated for a fungal infection and taking an antifungal medication. She quit taking her prednisone 3 days ago, thinking it was affecting her blood glucose. She endorses a lot of dizziness today, as if she is spinning, both sitting and standing. She denies seeing spots or blurry vision. She is denying cp, sob, n/v/d, fever/chills. She is c/o L/RLQ pain and lower back pain. Pt consents to evaluation and treatment. [facility] obtains pt consent and uploads. Vital signs are gathered, including CBG and pt is assessed. Lung sounds are clear and equal to auscultation. Pt has tenderness across her lower abdomen to palpation, CVA tenderness bilateral, and lumber discomfort w/ palpation. Remaining physical exam is unremarkable. A 20ga IV is established and blood is drawn for bmp. IV is then locked w/ a saline lock and secured. [facility] contacts [facility] and discusses the above. [facility] speaks w/ pt and advises the ED for insulin and fluids, since pt does not currently use insulin for controlling glucose. Pt is amendable and [facility] calls 911. Pt is transported to [facility] by [facility] w/ IV in place. [facility] is clear. Report completed by MARISA Servin [id number]. [facility] Lab Orders: glucose, fingerstick, blood: Performed urinalysis, dipstick: Not Performed Comment: Pt transported to ED. BMP, serum or plasma: Performed .................. .................. .................. .................. .................. .................. .................. ............... [facility] Consulted: Adam Vargas .................. .................. .................. .................. .................. .................. .................. ............... Disposition: Fulfilled ADAM VARGAS MD [address] [facility],[address], [place], [phone], [employer], ALYX 06/18/2024 22:04:42 OBGyn Episode No OBEpisode recorded.
--- OUTSIDE RECORDS SUMMARY | 2024-06-22 14:20 | XMS_ITS | Data Portability ---
Author Organization [employer] [place], [place] [facility] Address [address] [place] [phone] Assessment No assessment recorded. Plan of Treatment Reminders Order Date Submit Date Provider Last Modified By Organization Details Last Modified Time Details Appointments None recorded. Lab glucose, fingerstic k, blood 2024 025 [facility], [address] [place] [address], [phone], 5 21:34:56 urinalysis , dipstick 2024 025 [facility], [address] [place] [address], [id number], 5 21:35:45 BMP, serum or plasma 2024 025 [facility], [address] [place] [address], [phone], 5 21:37:02 Referral None recorded. Procedures None [...] Updated DateTime 5 98 % 98 % 50029.7 2 g 157.48 cm 119 /min 16 [...] SNOMED-CT Code Diagnosis ICD10 Code Diagnosis Note [id number] ADAM RIOS MD Main - [facility] [address] [place] [phone] 06/18/2024 18:24:48 06/21/2024 16:18:54 Hyperglycemia due to type 2 diabetes mellitus [id number] 60200 E11.65 Evaluation in the field was performed by my pick up truck driver colleague, as noted above, I provided real-time [...] management . An expect was called at [facility] Primary care, consider__ _ Dispositio n:We discussed the situation and I recommende d referral to the emergency department . Health Concerns Section Related Observation LastModified by Organization Detai ls LastModified Time None Recorded Concern Status LastModified by Organization Details LastModified Time None Recorded Advance Directives Directive None Recorded Payers Encounter Date Sequence Insurance Name Policy Number Policy Alonso Covered Member ID Alonso Member ID Guarantor Name 06/18/[address] [facility] - DOS ON OR AFTER 2022 - DUAL ELIGIBLE - NURSING HOME OPTIONS AND ONE CARE (MEDICARE REPLACEMENT/ADV ANTAGE - HMO) Lulu Mulligan [id number] Lulu Mulligan Notes Date Note Type Note [...] Mellitus Type 2 PMH Reviewed at 06/18/2024 13:36 Allergies Reviewed at 06/18/2024 13:36 Comments: HPI reviewed, RN tried to reach out to member to further assess. Unable to get in touch with member. [employer] Organization Information for Corey Servin Legal Name: [employer].? Address: [address] [place] [address], Molder Operator: Hugo Luna MD CLIA No.: [id number] [employer] POC Test Results from Servin, [facility] Blood Glucose Measurement (18:45:44) Blood Glucose: 547 mg/dL iSTAT Chem8+ (18:46:02) Na: 130 mEq/L K: 4.5 mEq/L Cl: 91 mEq/L iCa: 1.18 mmol/L TCO2: 24 mmol/L Glu: 562 mg/dL BUN: 20 mg/dL Crea: 1.0 mg/dL Hct: 46 % Hb: 15.6 g/dL A .................. .................. .................. .................. .................. .................. .................. ............... [employer] Note From Corey Servin: [facility] makes pt contact. She walks in to [...] pain. Pt consents to evaluation and treatment. [facility] obtains pt consent and uploads. Vital signs [...] locked w/ a saline lock and secured. [facility] contacts [facility] and discusses the above. [facility] speaks w/ pt and advises the ED for insulin and fluids, since pt does not currently use insulin for controlling glucose. Pt is amendable and [facility] calls 911. Pt is transported to [facility] by [facility] w/ IV in place. [facility] is clear. Report completed by MARISA Servin [id number]. [facility] Lab Orders: glucose, fingerstick, blood: Performed urinalysis, dipstick: Not Performed Comment: Pt transported to ED. BMP, serum or plasma: Performed .................. .................. .................. .................. .................. .................. .................. ............... [facility] Consulted: Adam Rios .................. .................. .................. .................. .................. .................. .................. ............... Disposition: Fulfilled ADAM RIOS MD [address] [facility],[address], [place], [phone], [employer] - [employer], ALYX 06/18/2024 22:04:42 OBGyn Episode No OBEpisode recorded.
[2024-06-22 14:28] VITALS: PULSE 99; RESP 31
[2024-06-22 15:26] LABS: Glucose, Whole Blood 252 mg/dL (60-115)
[2024-06-22 16:45] LABS: Glucose, Whole Blood 235 mg/dL (60-115)
[2024-06-22 16:53] VITALS: BP 121/66; PULSE 102; RESP 14; TEMP 36.5; O2SAT 99
[2024-06-22 18:10] VITALS: BP 121/66; PULSE 102; RESP 14; TEMP 36.5; O2SAT 99
== END 2024-06-22 18:11 | disposition home or self-care (01) ==
PROVIDERS: Physician Assistant Medical; Emergency Provider Emergency Medicine; PCP Internal Medicine
DX: R42 Dizziness and giddiness (principal); E13.65 Other specified diabetes mellitus with hyperglycemia; R41.0 Disorientation, unspecified; R68.2 Dry mouth, unspecified; R20.0 Anesthesia of skin; R10.9 Unspecified abdominal pain; Z79.84 Long term (current) use of oral hypoglycemic drugs; Z79.899 Other long term (current) drug therapy; Z03.818 Encounter for observation for suspected exposure to other biological agents ruled out
CPT/HCPCS: 0241U; 36415; 80053; 82010; 82803; 82947; 83735; 85025; 86140; 93005; 96360; 96361; 99284; 99285

== ENCOUNTER 2024-09-19 11:03 | Outpatient (REF) | payer OTHER, SELFPAY ==
[2024-09-19 12:04] LABS: Estimated Average Glucose 151 mg/dL; Hemoglobin A1c % 6.9 % (<6.0)
[2024-09-19 12:43] LABS: Alanine Aminotransferase 18 U/L (0-31); Albumin Level 3.8 g/dL (3.5-5.0); Alkaline Phosphatase 73 U/L (39-117); Anion Gap 9 (12-20); Aspartate Amino Transferase 21 U/L (5-31); Bilirubin Total 0.4 mg/dL (0.0-1.0); Blood Urea Nitrogen 10 mg/dL (9-16); Calcium 8.7 mg/dL (8.4-10.2); Carbon Dioxide 28 mmol/L (22-29); Chloride 104 mmol/L (96-108); Cholesterol 145 mg/dL (<200); Estimated Glomerular Filt Rate > 60; Glucose Random 127 mg/dL (60-115); Potassium 4.3 mmol/L (3.3-5.1); Sodium 137 mmol/L (135-145); Triglycerides 86 mg/dL (<150)
[2024-09-19 12:48] LABS: HDL Cholesterol 46 mg/dL (>40); LDL Cholesterol Calculated 82 mg/dL (<100)
--- OUTSIDE RECORDS SUMMARY | 2024-09-19 12:49 | XMS_ITS | Data Portability ---
Author Organization [employer] [place], [place] [facility] Address [address] [place] [phone] Care Team Providers Care Lead Welder Name Role Phone HIM CCA OTHER Assessment No assessment recorded. Plan of Treatment Reminders Order Date Submit Date Provider Last Modified By Organization Details Last Modified Time Details Appointments None recorded. Lab glucose, fingerstic k, blood 2024 025 [place] [phone] 5 21:34:56 urinalysis , dipstick 2024 025 [place] [phone] 5 21:35:45 BMP, serum or plasma 2024 025 [place] [phone] 5 21:37:02 Referral None recorded. Procedures None [...] Updated DateTime 5 98 % 98 % 54413.7 2 g 157.48 cm 119 /min 16 [...] SNOMED-CT Code Diagnosis ICD10 Code Diagnosis Note [id number] ADAM RIOS MD Main - [address] [phone] 06/18/2024 18:24:48 06/21/2024 16:18:54 Hyperglycemia due to type 2 diabetes mellitus [id number] E11.65 Evaluation in the field was performed by my stage producer colleague, as noted above, I provided real-time [...] management . An expect was called at [facility] Primary care, consider__ _ Dispositio n:We [...] Alonso Member ID Guarantor Name 06/18/2024 1 [facility] - DOS ON OR AFTER 2022 - DUAL ELIGIBLE - ASSISTED OPTIONS AND ONE CARE (MEDICARE REPLACEMENT/ADV ANTAGE - HMO) Lulu Mulligan [id number] Lulu Mulligan Notes Date Note Type Note [...] at 06/18/2024 13:36 Allergies Reviewed at 06/18/2024 - 13:36 Comments: HPI reviewed, RN tried to reach out to member to further assess. Unable to get in touch with member. Clerical Transcriber Organization Information for Corey Servin Legal Name: [employer]? Address: [address] [place] [address], Convalescent Sitter: Hugo Luna MD CLIA No.: [id number] Clerical Transcriber POC Test Results from Corey Servin Blood Glucose Measurement (18:45:44) Blood Glucose: 547 mg/dL iSTAT Chem8+ (18:46:02) Na: 130 mEq/L K: 4.5 mEq/L Cl: 91 mEq/L iCa: 1.18 mmol/L TCO2: 24 mmol/L Glu: 562 mg/dL BUN: 20 mg/dL Crea: 1.0 mg/dL Hct: 46 % Hb: 15.6 g/dL A .................. .................. .................. .................. .................. .................. .................. ............... Clerical Transcriber Note From Corey Servin: [facility] makes pt contact. She walks in [...] pain. Pt consents to evaluation and treatment. [facility] obtains pt consent and uploads. Vital [...] locked w/ a saline lock and secured. [facility] contacts [facility] and [place] the above. [facility] [place] w/ pt and advises the ED for insulin and fluids, since pt does not currently use insulin for controlling glucose. Pt is amendable and [facility] calls 911. Pt is transported to [facility] by [facility] w/ IV in place. [facility] is clear. Report completed by MARISA Servin [id number]. [facility] Lab Orders: glucose, fingerstick, blood: Performed urinalysis, dipstick: Not Performed Comment: Pt transported to ED. BMP, serum or plasma: Performed .................. .................. .................. .................. .................. .................. .................. ............... [facility] Consulted: Adam Rios .................. .................. .................. .................. .................. .................. .................. ............... Disposition: Fulfilled ADAM RIOS MD [address] [facility],[address], [place], [phone], [employer] 06/18/2024 22:04:42 OBGyn Episode No OBEpisode recorded.
== END 2024-09-19 11:04 | disposition home or self-care (01) ==
LOC: HO.LAB 11:03
PROVIDERS: PCP Internal Medicine; Visit Provider Internal Medicine
DX: E11.9 Type 2 diabetes mellitus without complications (principal); E78.2 Mixed hyperlipidemia
CPT/HCPCS: 36415; 80053; 80061; 83036

== ENCOUNTER 2024-12-22 10:47 | Outpatient (REF) | payer OTHER, SELFPAY ==
--- OUTSIDE RECORDS SUMMARY | 2024-12-22 11:27 | XMS_ITS | Patient Health Record ---
Author Organization [facility] Address [address] [place] [address] Care Team Providers Care Engineering Tech Name Role Phone Lebron James Unavailable [phone] Reason For Referral No Information Plan Of Treatment No Information
[2024-12-22 12:35] LABS: Hemoglobin A1C 145.7379 umol/L; Total Hemoglobin (HGBA1C) 3243.3491 umol/L
[2024-12-22 13:01] LABS: Alanine Aminotransferase 60 U/L (0-31); Albumin Level 4.3 g/dL (3.5-5.0); Alkaline Phosphatase 77 U/L (39-117); Anion Gap 11 (12-20); Aspartate Amino Transferase 53 U/L (5-31); Blood Urea Nitrogen 13 mg/dL (9-16); Calcium 9.2 mg/dL (8.4-10.2); Carbon Dioxide 30 mmol/L (22-29); Chloride 104 mmol/L (96-108); Cholesterol 154 mg/dL (<200); Estimated Glomerular Filt Rate > 60; HDL Cholesterol 41 mg/dL (>40); Potassium 4.3 mmol/L (3.3-5.1); Sodium 141 mmol/L (135-145); Total Protein 7.7 g/dL (6.5-8.0); Triglycerides 91 mg/dL (<150)
== END 2024-12-22 10:48 | disposition home or self-care (01) ==
LOC: HO.LAB 10:47
PROVIDERS: PCP Internal Medicine; Visit Provider Internal Medicine
DX: E11.9 Type 2 diabetes mellitus without complications (principal); I10 Essential (primary) hypertension; E78.00 Pure hypercholesterolemia, unspecified; R51.9 Headache, unspecified
CPT/HCPCS: 36415; 80053; 80061; 83036

== ENCOUNTER 2024-12-29 08:56 | Emergency (ER) | payer OTHER, SELFPAY ==
--- NOTE | ~2024-12-29 | US_ITS ---
EXAMINATION: US KIDNEY BILATERAL HISTORY: dysuria, flank pain TECHNIQUE: Real-time grayscale ultrasound imaging of the kidneys was performed and images were reviewed. COMPARISON: Correlation is made with a CT of the abdomen with contrast dated 06/18/2024. FINDINGS: Right kidney: The right kidney measures 11.6 x 4.1 x 5.6 cm. Renal parenchymal echotexture and thickness are normal. There are no masses. There is no hydronephrosis or renal calculi. Left Kidney: The left kidney measures 12.2 x 5.6 x 5.1 cm. Renal parenchymal echotexture and thickness are normal. There are no masses. There is no hydronephrosis or renal calculi. US/US renal BI IMPRESSION: Unremarkable renal ultrasound. Electronically signed by: Lebron Mejia MD 12/29/2024 03:01 PM EDT
[2024-12-29 09:15] VITALS: BP 122/56; PULSE 92; RESP 18; TEMP 36.9; O2SAT 97; BMI 36.4
[2024-12-29 09:42] LABS: MANUAL DIFF FLAG NO
[2024-12-29 09:44] LABS: Hematocrit 34.7 % (37.0-47.0); Hemoglobin 11.4 g/dl (12.0-16.0); Imm Gran Abs Auto 0.01 X10*3/uL (0.00-0.03); Imm Gran Pct Auto 0.2 % (0.0-0.4); Lymphocytes Absolute Auto 2.1 X10*3/uL (1.2-4.9); Mean Corpuscular HGB Conc 32.9 g/dl (31.0-35.0); Mean Corpuscular Hemoglobin 30.2 pg (27.0-33.0); Mean Corpuscular Volume 92.0 fL (80.0-98.0); NRBC Abs Auto 0.000 X10*3/uL (0.0-0.012); NRBC Pct Auto 0.0 /100WBC (0.0-0.2); Platelet Count 231 X10*3/uL (160-400); Red Blood Count 3.77 X10*6/uL (4.20-5.50); White Blood Count 5.0 X10*3/uL (4.8-10.8)
--- NOTE | 2024-12-29 09:46 | ED.GENADULT ---
HPI - General Adult General Chief complaint: Abdominal Pain Stated complaint: Pain upon urination Time Seen by Provider: 12/29/24 09:46 Source: patient, RN notes reviewed and old records reviewed Mode of arrival: ambulatory Limitations: no limitations History of Present Illness ED Provider: Julia FERMIN narrative: Patient is a 44-year-old female with history of IBS, GERD, hepatic steatosis, DM presenting to the ED with complaint of dysuria and suprapubic pain for the past 3 days. States pain radiating to lower back. Denies fever, nausea, vomiting or hematuria. MD complaint: dysuria Onset (ago): day(s) Related Data Home Medications ?Medication ?Instructions ?Recorded ?Confirmed pentosan polysulfate sodium 100 mg 100 mg PO TID 05/21/20 06/10/23 capsule (Elmiron) propranolol 120 mg capsule,24 120 mg PO DAILY 05/21/20 06/10/23 hr,extended release (Inderal LA) venlafaxine 75 mg capsule,extended 75 mg PO DAILY 05/21/20 06/10/23 release 24 hr glipizide 2.5 mg tablet, extended 2.5 mg PO QAM 10/22/20 06/10/23 release 24 hr metformin 1,000 mg tablet 1,000 mg PO BID 10/22/20 06/10/23 dulaglutide 0.75 mg/0.5 mL 0.75 mg subcut QWEEK 06/10/23 06/10/23 subcutaneous pen injector (Trulicity) prednisone 20 mg tablet 40 mg PO DAILY PRN pain/swelling 06/10/23 06/10/23 Previous Rx's ?Medication ?Instructions ?Recorded lidocaine-prilocaine 2.5 %-2.5 % 1 appl topical BID 30 days #30 04/19/20 topical cream grams cholecalciferol (vitamin D3) 50 50 mcg PO DAILY #30 caps 11/27/20 mcg (2,000 unit) capsule docusate sodium 100 mg capsule 100 mg PO BEDTIME #90 caps 08/05/21 clotrimazole-betamethasone 1 1 appl topical BID 5 days #45 grams 01/28/22 %-0.05 % topical cream ondansetron 4 mg disintegrating 4 mg PO Q6H PRN nausea and 04/23/22 tablet vomiting #14 tabs methylcellulose (laxative) 500 mg 500 mg PO DAILY #30 tabs 06/04/22 tablet (Citrucel) cholestyramine-aspartame 4 gram 4 g PO QIDACHS #239.4 grams 06/13/22 oral powder (Cholestyramine Light) bisacodyl 5 mg tablet,delayed 10 mg (2 x 5 mg) PO BEDTIME #180 10/27/22 release (Dulcolax (bisacodyl)) tabs loperamide 2 mg capsule 2 mg PO Q6H PRN loose stool #20 10/27/22 caps sucralfate 1 gram tablet 1 g PO BEDTIME #30 tabs 10/27/22 magnesium citrate 300 ml PO DAILY PRN constipation 02/03/23 #296 mL polyethylene glycol 3350 17 17 g PO DAILY PRN constipation 02/03/23 gram/dose oral powder (Miralax) #238 grams albuterol sulfate 90 mcg/actuation 2 puff inhalation Q4-6H PRN 04/14/23 aerosol inhaler shortness of breath or wheezing #6.7 grams esomeprazole magnesium 40 mg 40 mg PO DAILY #30 caps 05/12/23 capsule,delayed release (Nexium) ibuprofen 600 mg tablet 600 mg PO Q6H PRN pain #30 tabs 06/30/23 oxycodone-acetaminophen 5 mg-325 1 tab PO Q4-6H PRN pain #25 tabs 06/30/23 mg tablet (Percocet) docusate sodium 100 mg capsule 100 mg PO BID constipation 10 days 07/02/23 (Colace) #20 caps benzonatate 200 mg capsule 200 mg PO TID PRN cough 5 days #15 08/23/23 caps clotrimazole 2 % vaginal cream 1 appful vaginal BEDTIME 3 days 06/19/24 (Clotrimazole 3 Day) #21 grams metformin 500 mg tablet 1,000 mg (2 x 500 mg) PO BID 2 06/19/24 weeks #56 tabs miconazole nitrate 1,200 mg-2 % See Rx Instructions vaginal 12/29/24 vaginal kit .COMPLEX #1 ea Allergies Allergy/AdvReac Type Severity Reaction Status Date / Time oxycodone (Percocet) Allergy Mild hives Verified 12/29/24 09:20 Review of Systems Review of Systems: as per hpi Yes all other systems are reviewed and are negative Constitutional: Constitutional: Reports as per HPI [facility] Past Medical History Medical History Umbilical hernia Adenocarcinoma of cervix Transaminitis Diabetes 1.5, 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 Hepatic steatosis IBS (irritable colon syndrome) GERD (gastroesophageal reflux disease) Hypertension Surgical History Hx laparoscopic cholecystectomy Hx of tubal ligation Hx of exploratory laparotomy Hx of cystoscopy Hx of laparoscopy Hx of colonoscopy (~2018) History of esophagogastroduodenoscopy (EGD) (~2018) H/O: hysterectomy (~2018) Family History Family History Father Diabetes FH: stomach cancer FH: cancer FHx: hypercholesterolemia Cancer Brother FH: stomach cancer Cancer Mother FH: depression FH: diabetes mellitus FH: cancer Maternal Uncle Cancer FH: cancer Sister Cancer Paternal Grandfather Family history of colon cancer Social History Social History Household Members: Spouse Are you a primary care information associate to a significant other at home: No Do you presently have visiting nurse or other home services: No Alcohol intake: current Alcohol intake frequency: does not drink Patient Tobacco Use Status: Former Tobacco user Tobacco use type: Cigarette Advance Directives: No Advance Directives Information Provided: Yes Current occupational status: unemployed Sexual orientation: Straight/Heterosexual Gender identity: Female Physical Exam ED Vital Signs: Vital Signs - 24 hr 12/29/24 09:15 12/29/24 14:00 Temperature 98.4 F 98.0 F Pulse Rate 92 72 Respiratory Rate 18 18 Blood Pressure 122/56 L 122/78 Pulse Oximetry 97 100 Oxygen Delivery Method Room Air Room Air BMI result Body Mass Index 36.4 Vital signs have been reviewed and appear to be correct. Blood pressure normal. Heart rate normal. Respiratory rate normal. Temperature normal. Oxygen saturation normal. Const General: cooperative, healthy appearing and no acute distress Orientation/consciousness: oriented to person, oriented to place, oriented to time and patient oriented x3 Limitations: no limitations HENMT Head: Yes normocephalic and Yes atraumatic Ears: external ears normal General nose exam: Normal external nose present Face and sinus: Yes face symmetric Mouth: oropharynx normal and moist mucous membranes Throat: Yes uvula midline Eyes Pupils: Equal, round and reactive pupils present Neck Neck: Yes normal visual inspection and Yes supple Resp Effort & Inspection: normal respiratory effort and able to speak in complete sentences Auscultation: clear to auscultation bilaterally Cardio Rate: regular rate Rhythm: regular rhythm Heart sounds: S1 normal heart sound present and S2 normal heart sound present GI Palpation (GI): Soft to palpation and Tenderness to palpation present (GI) suprapubicly Auscultation: normoactive bowel sounds General: Yes no CVA tenderness Back/Spine/Pelvis Back: no CVA tenderness Skin General skin exam: elasticity normal and turgor normal Neuro General: oriented to person, oriented to place, oriented to time, patient oriented x3, moves all extremities, no focal motor deficits and CN's II-XI intact bilaterally Cranial nerves: Yes Equal, round and reactive pupils present Cognition (Neuro): normal cognition Extrem General: Yes full ROM, Yes no pedal edema and Yes no calf tenderness Psych Mental Status: mental status grossly normal Affect: normal affect Thought process: Normal thought process present Medications Administered Discontinued Medications Generic Name Dose Route Start Last Admin Trade Name Freq PRN Reason Stop Dose Admin Sodium Chloride 1,000 mls @ 999 mls/hr 12/29/24 10:30 12/29/24 11:02 Ns IV 12/29/24 11:30 999 mls/hr .Q1H1M AYAZ Administration Ketorolac Tromethamine 15 mg 12/29/24 11:08 12/29/24 11:12 Ketorolac Tromethamine 15 Mg/Ml Vial IVPUSH 12/29/24 11:09 15 mg ONCE ONE Administration Medical Decision Making Medical Decision Making [facility] Narrative: Patient is a 44-year-old female with history of IBS, GERD, hepatic steatosis, DM presenting to the ED with complaint of dysuria and suprapubic pain for the past 3 days. On exam patient is awake, A+Ox3, VS WNL, afebrile, normal neurological exam without focal deficits, physical exam findings as above. Given reported symptoms and physical exam findings, initial differential includes but is not limited to UTI, pyelonephritis, vulvovaginitis. Labs unremarkable, no evidence of SAGE. Patient states that she feels unable to provide urine specimen, will order IV fluids. UA without evidence of infection. Renal ultrasound is without evidence of hydronephrosis or obstructing calculi. Patient now stating that she has been having vaginal itching and white discharge. Has history of vaginal yeast infections in the past and states this feels similar. Patient will self swab for BV panel. Will empirically treat with miconazole. Advised follow up with PCP or administrative aide. Return precautions discussed. Patient verbalized understanding of and agreement with plan. Differential Diagnosis Differential Diagnoses: The differential diagnosis associated with the presentation includes As per [facility] Admission/Observation Consideration of admission/observation: Escalation of care including admission/observation considered Patient would have been admitted to the hospital had their clinical presentation warranted hospital admission. Lab Data [facility] Lab Attestation statement: I reviewed the patient's lab results. as per [facility] 12/29/24 09:38 12/29/24 09:38 Labs: Lab Results 12/29/24 12/29/24 12/29/24 Range/Units 09:38 12:24 14:20 WBC 5.0 (4.8-10.8) X10*3/uL RBC 3.77 L (4.20-5.50) X10*6/uL Hgb 11.4 L (12.0-16.0) g/dl Hct 34.7 L (37.0-47.0) % MCV 92.0 (80.0-98.0) fL MCH 30.2 (27.0-33.0) pg MCHC 32.9 (31.0-35.0) g/dl RDW 12.9 (11.0-16.0) % Plt Count 231 (160-400) X10*3/uL MPV 8.5 L (9.4-12.3) fL Immature Gran % (Auto) 0.2 (0.0-0.4) % Neut % (Auto) 48.4 (45-73) % Lymph % (Auto) 42.4 H (20-40) % Upson % (Auto) 8.0 (2-11) % Eos % (Auto) 0.6 (0-4) % Baso % (Auto) 0.4 (0-2) % Lymph # (Auto) 2.1 (1.2-4.9) X10*3/uL Upson # (Auto) 0.4 (0.1-1.2) X10*3/uL Eos # (Auto) 0.0 (0.0-0.4) X10*3/uL Baso # (Auto) 0.0 (0.0-0.2) X10*3/uL Abs Immat Gran (auto) 0.01 (0.00-0.03) X10*3/uL Absolute Neuts (auto) 2.4 (2.0-8.3) x10*3/uL Absolute Nucleated RBC 0.000 (0.0-0.012) X10*3/uL Nucleated RBC % (auto) 0.0 (0.0-0.2) /100WBC Sodium 141 (135-145) mmol/L Potassium 4.2 (3.3-5.1) mmol/L Chloride 104 (96-108) mmol/L Carbon Dioxide 29 (22-29) mmol/L Anion Gap 12 (12-20) BUN 9 (9-16) mg/dL Creatinine 0.64 (0.5-1.4) mg/dL Estim Creat Clear Calc 115.9 Estimated GFR > 60 Random Glucose 142 H (60-115) mg/dL Calcium 9.2 (8.4-10.2) mg/dL Total Bilirubin 0.5 (0.0-1.0) mg/dL AST 49 H (5-31) U/L ALT 54 H (0-31) U/L Alkaline Phosphatase 75 (39-117) U/L Total Protein 7.4 (6.5-8.0) g/dL Albumin 4.2 (3.5-5.0) g/dL Beta HCG, Quant < 2 mIU/mL Urine Color Yellow Urine Appearance Clear Urine pH 6.0 (5.0-9.0) Ur Specific [place] <= 1.005 (1.005-1.025) Urine Protein Negative (Neg-Trace) mg/dL Urine Glucose (UA) Negative (Negative) mg/dL Urine Ketones Negative (Negative) mg/dL Urine Blood Negative (Negative) Urine Nitrite Negative (Negative) Ur Leukocyte Esterase Negative (Negative) Urine Test NEGATIVE (NEGATIVE) Independent Interpretation I performed an independent interpretation of an: Ultrasound Interpretation: Renal ultrasound is without evidence of hydronephrosis or obstructing calculi Radiology Impression Discussion of test interpretation with radiology: I have reviewed the radiologist's reading. Radiologist Impression: US/US renal BI IMPRESSION: Unremarkable renal ultrasound. External Record Review External record reviewed: Inpatient record, Office record and Outpatient record Prescription Management I considered prescription management with: Other Discharge Plan Discharge Clinical Impression: Vulvovaginal candidiasis Patient Disposition: Home, Self-Care Instructions: Yeast Infection (ED) Additional Instructions: You were evaluated in the emergency department today for your urinary symptoms. Your urine did not show evidence of an acute infection. The ultrasound of your kidneys did not show any concerning findings. You are being treated for a vaginal yeast infection, use the prescribed medication as directed. Follow up with your primary care provider as needed. Return to the emergency department if you develop difficulty urinating, blood in your urine, fever, vomiting or any other new or concerning symptoms. Prescriptions: New miconazole nitrate 1,200-2 mg-% kit See Rx Instructions .ROUTE .COMPLEX Qty: 1 0RF Rx Instructions: place 1 insert into vagina at bedtime day 1;apply cream to area outside vagina twice daily for up to 7 days No Action lidocaine-prilocaine 2.5-2.5 % cream 1 appl topical BID 30 Days Qty: 30 0RF Rx Instructions: Apply lightly to right upper abdomen and back topically cholecalciferol (vitamin D3) 50 mcg (2,000 unit) capsule 50 mcg PO DAILY Qty: 30 3RF esomeprazole magnesium [Nexium] 40 mg capsule,delayed release(DR/EC) 40 mg PO DAILY Qty: 30 5RF docusate sodium [Colace] 100 mg capsule 100 mg PO BID 10 Days Qty: 20 0RF ondansetron 4 mg tablet,disintegrating 4 mg PO Q6H PRN (Reason: nausea and vomiting) Qty: 14 0RF albuterol sulfate 90 mcg/actuation HFA aerosol inhaler 2 puff inhalation Q4-6H PRN (Reason: shortness of breath or wheezing) Qty: 6.7 0RF metformin 500 mg tablet 1,000 mg PO BID 14 Days Qty: 56 0RF Clotrimazole 3 Day 2 % cream 1 appful vaginal BEDTIME 3 Days Qty: 21 0RF Trulicity 0.75 mg/0.5 mL pen injector 0.75 mg subcut QWEEK prednisone 20 mg tablet 40 mg PO DAILY PRN (Reason: pain/swelling) oxycodone-acetaminophen [Percocet] 5-325 mg tablet 1 tab PO Q4-6H PRN (Reason: pain) Qty: 25 0RF Rx Instructions: Partial Fill upon patient request. ibuprofen 600 mg tablet 600 mg PO Q6H PRN (Reason: pain) Qty: 30 0RF polyethylene glycol 3350 [Miralax] 17 gram/dose powder 17 g PO DAILY PRN (Reason: constipation) Qty: 238 0RF magnesium citrate Solution 300 ml PO DAILY PRN (Reason: constipation) Qty: 296 0RF benzonatate 200 mg capsule 200 mg PO TID PRN (Reason: cough) 5 Days Qty: 15 0RF venlafaxine 75 mg capsule,extended release 24hr 75 mg PO DAILY propranolol [Inderal LA] 120 mg capsule,extended release 24 hr 120 mg PO DAILY Elmiron 100 mg capsule 100 mg PO TID metformin 1,000 mg tablet 1,000 mg PO BID glipizide 2.5 mg tablet extended release 24hr 2.5 mg PO QAM docusate sodium 100 mg capsule 100 mg PO BEDTIME Qty: 90 3RF clotrimazole-betamethasone 1-0.05 % cream 1 appl topical BID 5 Days Qty: 45 0RF Cholestyramine Light 4 gram powder 4 g PO QIDACHS Qty: 239.4 3RF Rx Instructions: no meds 1 hr before/4-6 hr after dose Citrucel 500 mg tablet 500 mg PO DAILY Qty: 30 2RF Rx Instructions: take it with full glass of water bisacodyl [Dulcolax (bisacodyl)] 5 mg tablet,delayed release (DR/EC) 10 mg PO BEDTIME Qty: 180 4RF loperamide 2 mg capsule 2 mg PO Q6H PRN (Reason: loose stool) Qty: 20 0RF sucralfate 1 gram tablet 1 g PO BEDTIME Qty: 30 4RF Print Language: Mosotho
[2024-12-29 10:08] LABS: Albumin Level 4.2 g/dL (3.5-5.0); Alkaline Phosphatase 75 U/L (39-117); Anion Gap 12 (12-20); Aspartate Amino Transferase 49 U/L (5-31); Blood Urea Nitrogen 9 mg/dL (9-16); Calcium 9.2 mg/dL (8.4-10.2); Carbon Dioxide 29 mmol/L (22-29); Chloride 104 mmol/L (96-108); Creatinine Clr Calc Pharmacy 115.9; Estimated Glomerular Filt Rate > 60; Potassium 4.2 mmol/L (3.3-5.1); Sodium 141 mmol/L (135-145); Total Protein 7.4 g/dL (6.5-8.0)
[2024-12-29 10:30] LABS: Alanine Aminotransferase 54 U/L (0-31)
--- OUTSIDE RECORDS SUMMARY | 2024-12-29 11:03 | XMS_ITS | Patient Health Record ---
Author Organization [facility] Address [address] [place] [address] Care Team Providers Care Corsetier Name Role Phone Lebron James Unavailable [phone] Reason For Referral No Information Plan Of Treatment No Information
[2024-12-29 12:42] LABS: UPreg QC Valid YES
[2024-12-29 14:00] VITALS: BP 122/78; PULSE 72; RESP 18; TEMP 36.7; O2SAT 100
[2024-12-29 14:26] LABS: Appearance Urine Clear; Glucose Urine UA Negative (Negative); PH 6.0 (5.0-9.0); Specific Gravity - Urine <= 1.005 (1.005-1.025)
[2024-12-29 16:10] VITALS: BP 122/78; PULSE 72; RESP 18; TEMP 36.7; O2SAT 100
[2024-12-29 17:31] LABS: Bacterial Vaginosis PCR NEGATIVE (Negative); Candida Group PCR DETECTED (Not Detect); Candida glab krusei PCR DETECTED (Not Detect); Trichomonas vaginalis PCR NOT DETECTED (Not Detect)
== END 2024-12-29 16:10 | disposition home or self-care (01) ==
PROVIDERS: Registered Nurse Emergency; Emergency Provider Emergency Medicine; PCP Internal Medicine
DX: B37.31 Acute candidiasis of vulva and vagina (principal); R30.0 Dysuria; M54.50 Low back pain, unspecified
CPT/HCPCS: 36415; 76775; 80053; 81003; 81025; 81515; 84702; 85025; 87086; 96374; 99284; J1885

== ENCOUNTER → 2024-12-29 13:40 | Outpatient (BNV) | payer OTHER, SELFPAY | PROVIDERS: Emergency Provider Emergency Medicine; PCP Internal Medicine; Visit Provider Radiology Diagnostic Radiology | DX: R30.0 Dysuria (principal) | CPT/HCPCS: 76775 ==

== ENCOUNTER 2025-01-23 09:56 | Outpatient (AMB) | payer OTHER, SELFPAY ==
--- NOTE | 2025-01-23 10:19 | MHC.OFFVIS ---
Intake Visit Reasons: CRABTREE Allergies oxycodone (Percocet) Allergy (Mild, Verified 12/29/24 09:20) hives Medication List - Last Reconciled 01/23/25 by Jasmin Devine MD albuterol sulfate 90 mcg/actuation 2 puffs inhalation Q4-6H PRN benzonatate 200 mg PO TID PRN 5 days bisacodyl (Dulcolax (bisacodyl)) 10 mg (2 x 5 mg) PO BEDTIME cholecalciferol (vitamin D3) 50 mcg PO DAILY cholestyramine-aspartame 4 gram (Cholestyramine Light) 4 grams PO QIDACHS clotrimazole 2% (Clotrimazole 3 Day) 1 appful vaginal BEDTIME 3 days clotrimazole-betamethasone 1-0.05 % 1 appl topical BID 5 days docusate sodium 100 mg PO BEDTIME docusate sodium (Colace) 100 mg PO BID 10 days dulaglutide (Trulicity) 0.75 mg subcut QWEEK esomeprazole magnesium (Nexium) 40 mg PO DAILY glipizide ER 2.5 mg PO QAM ibuprofen 600 mg PO Q6H PRN lidocaine-prilocaine 2.5-2.5 % 1 appl topical BID 30 days loperamide 2 mg PO Q6H PRN magnesium citrate 300 mL PO DAILY PRN metformin 1,000 mg (2 x 500 mg) PO BID 2 weeks metformin 1,000 mg PO BID methylcellulose (laxative) (Citrucel) 500 mg PO DAILY miconazole nitrate place 1 insert into vagina at bedtime day 1;apply cream to area outside vagina twice daily for up to 7 days ondansetron 4 mg PO Q6H PRN oxycodone-acetaminophen 5-325 mg (Percocet) 1 tab PO Q4-6H PRN pentosan polysulfate sodium (Elmiron) 100 mg PO TID polyethylene glycol 3350 (Miralax) 17 grams PO DAILY PRN prednisone 40 mg PO DAILY PRN propranolol ER (Inderal LA) 120 mg PO DAILY sucralfate 1 g PO BEDTIME venlafaxine ER 75 mg PO DAILY HPI Comments Details: The patient is a 44-year-old female presenting with migraine headaches. She has experienced headaches for several years, with an increase in both frequency and severity over the past year. Currently, she reports daily headaches, which she attempts to manage with acetaminophen and ibuprofen, taken nearly every day. The headaches are described as severe, sometimes inducing photophobia, and accompanied by nausea. The patient denies the presence of work or home stressors contributing to her condition and emphasizes relief from familial obligations since her children have grown and moved out. A family history of headaches exists, as indicated by her aunt's condition. Previous provided medication details were not discussed in depth, though she admitted to receiving medication without specifics. 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 Hepatic steatosis IBS (irritable colon syndrome) GERD (gastroesophageal reflux disease) Hypertension Surgical History Hx laparoscopic cholecystectomy Hx of tubal ligation Hx of exploratory laparotomy Hx of cystoscopy Hx of laparoscopy Hx of colonoscopy (~2018) History of esophagogastroduodenoscopy (EGD) (~2017) H/O: hysterectomy (~2019) Family History Father Diabetes FH: stomach cancer FH: cancer FHx: hypercholesterolemia Cancer Brother FH: stomach cancer Cancer Mother FH: depression FH: diabetes mellitus FH: cancer Maternal Uncle Cancer FH: cancer Sister Cancer Paternal Grandfather Family history of colon cancer Social History Household Members: Spouse Are you a primary youth care professional to a significant other at home: No Do you presently have visiting nurse or other home services: No Alcohol intake: current Alcohol intake frequency: does not drink Patient Tobacco Use Status: Former Tobacco user Tobacco use type: Cigarette Current occupational status: unemployed Sexual orientation: Straight/Heterosexual Gender identity: Female Female Reproductive History Menstrual Age of Menarche: 11 Review of Systems Const Details: - Head: Reports headaches with photophobia, nausea - Musculoskeletal: Denies any other pain complaints - Neurological: Reports migraines, denies other neurological symptoms Physical Exam Neuro Other: Mental Status: Alert and oriented to person, place, and time. Normal attention. Normal spontaneous speech, fluency, and comprehension. No obvious issues with mood and memory. Affect is appropriate. Cranial Nerves: CN II: Visual montoya full to confrontation, visual acuity intact. CN III, IV, : Pupils equal, round, reactive to light and accommodation. Extraocular movements are normal. CN V: Facial sensation is normal. CN VII: Facial movements symmetrical. CN VIII: Hearing intact to bedside conversation is normal. CN IX, X: Palate elevates symmetrically. CN XI: Shoulder shrug and head turn symmetrical. CN XII: Tongue midline without atrophy or fasciculations. Motor: Bulk and tone normal in all extremities. No significant muscle weakness in arms and legs. No drift. Reflexes: Deep tendon reflexes 2+ and symmetric. Plantar response down-going bilaterally. Coordination: [id number] and [id number] testing normal. No dysmetria. Gait and Station: No obvious gait abnormality. No ataxia or instability. Extrapyramidal: Full facial expressions and blinking. No rigidity. Movements are appropriate with no tremor or abnormality. Speech: Normal; no dysarthria or tremor. Assessment & Plan Assessment & Plan (1) Migraine without aura, intractable, without status migrainosus: Code(s): G43.019 - Migraine without aura, intractable, without status migrainosus Category: Medical Plan Impression: Probably chronic migraine type headaches I discussed the patient's chronic migraine headaches and the complications arising from daily analgesic use, such as medication-overuse headaches. We outlined a treatment plan that includes reducing [id number] medication usage and potentially initiating triptan abortive therapy and preventive medications like beta-blockers or antiepileptics. The significance of maintaining a headache diary to track headache occurrences and potential triggers was emphasized. I highlighted the importance of following up for assessment of treatment efficacy and adjustment, as needed. Stress reduction and lifestyle adjustment were discussed as beneficial strategies. The patient agreed to the proposed plan. Orders: Orders Lyme IgG/IgM w/reflex to WB Today G43.019 - Migraine without aura, intractable, without status migrainosus Erythrocyte Sedimentation Rate Today G43.019 - Migraine without aura, intractable, without status migrainosus Medications: New topiramate 25 mg orally one at night; 90 tabs 0RF Coding Level of Care Code New Pt Level 4 (81118) Diagnoses Migraine without aura, intractable, without status migrainosus G43.019
--- OUTSIDE RECORDS SUMMARY | 2025-01-23 11:37 | XMS_ITS | Patient Health Record ---
Author Organization [facility] Address [address] [place] [address] Care Team Providers Care Ultrasonographer Name Role Phone Lebron James Unavailable [phone] Reason For Referral No Information Plan Of Treatment No Information
== END 2025-01-23 10:30 | disposition home or self-care (01) ==
LOC: HO.HSM 09:56
PROVIDERS: PCP Internal Medicine; Visit Provider Psychiatry & Neurology Neurology
DX: G43.019 Migraine without aura, intractable, without status migrainosus (principal)
CPT/HCPCS: 99204

== ENCOUNTER → 2025-01-23 09:56 | Outpatient (BNVA) | payer OTHER, SELFPAY | PROVIDERS: PCP Internal Medicine; Visit Provider Psychiatry & Neurology Neurology | DX: G43.109 Migraine with aura, not intractable, without status migrainosus (principal) | CPT/HCPCS: 99202 ==

== ENCOUNTER 2025-03-14 09:58 | Outpatient (REF) | payer OTHER, SELFPAY ==
--- OUTSIDE RECORDS SUMMARY | 2025-03-14 11:48 | XMS_ITS | Patient Health Record ---
Author Organization [facility] Address [address] [place] [address] Care Team Providers Care Giver Name Role Phone Lebron James Unavailable [phone] Reason For Referral No Information Plan Of Treatment No Information
== END 2025-03-14 09:59 | disposition home or self-care (01) ==
LOC: HO.MAMMO 09:58
PROVIDERS: PCP Internal Medicine; Visit Provider Internal Medicine
DX: Z12.31 Encounter for screening mammogram for malignant neoplasm of breast (principal)
CPT/HCPCS: 77063; 77067

== ENCOUNTER → 2025-03-14 10:45 | Outpatient (BNV) | payer OTHER, SELFPAY | PROVIDERS: PCP Internal Medicine; Visit Provider Internal Medicine | DX: Z12.31 Encounter for screening mammogram for malignant neoplasm of breast (principal) | CPT/HCPCS: 77063; 77067 ==

== ENCOUNTER 2025-03-29 11:54 | Outpatient (REF) | payer OTHER, SELFPAY ==
--- OUTSIDE RECORDS SUMMARY | 2025-03-29 14:48 | XMS_ITS | Data Portability ---
Author Organization [facility] Missingames [facility], [facility] Address [address] [place] [id number] Care Team Providers Care Senior Quality Analyst Name Role Phone HIM CCA OTHER Assessment No assessment recorded. Plan of Treatment Reminders Order Date Submit Date Provider Last Modified By Organization Details Last Modified Time Details Appointments None recorded. Lab glucose, fingerstic k, blood 2024 025 [place] [id number] 5 21:34:56 urinalysis , dipstick 2024 025 [place] [id number] 5 21:35:45 BMP, serum or plasma 2024 025 [place] [id number] 5 21:37:02 Referral None recorded. Procedures None [...] Heart rate Respiratory rate Body temperature Systolic And Diastolic Provider Name and Address Organization Details Last Updated DateTime 5 98 % 98 % 12457.7 2 g 157.48 cm 119 /min 16 /min 97.8 [degF] 115/80 mm[Hg] Not Available [facility] - production 5 [...] Diagnosis SNOMED-CT Code Diagnosis ICD10 Code Diagnosis IMO Codes Diagnosis Note 61100 ADAM RIOS MD Main - [address] [id number] 06/18/2024 18:24:48 06/21/2024 16:18:54 Hyperglycemia due to type 2 diabetes mellitus 3880114067 23897 E11.65 Evaluation in the field was performed by my top knitter colleague, as noted above, I provided real-time [...] /min. SpO2 98%, Room AirTempera tures 97.8 FExam : The patient is alert and oriented but in mild distress, with tachycardi a noted. Lungs are clear to auscultati on. The abdominal exam reveals diffuse lower abdominal tenderness to palpation. There is bilateral CVA tenderness and lumbar discomfort with palpation. The remainder of the physical examinatio n is unremarkab le.Sodium : 130 mmol/L (corrected : 137 mmol/L)Bic arbonate (TCO ) : 24 mmol/LGluc ose: 562 mg/dLBUN: 20 mg/dLCreat inine : 1.0 mg/dLHemat ocrit (Hct): 46%Hemoglo bin (Hb): 15.6 g/dLAllerg ies reviewed. Impression :Severe hyperglyce tatiana without evidence of diabetic ketoacidos is (DKA), given a bicarbonat e level of 24 mmol/L. The patient s presentat ion is concerning for a possible infection, such as a urinary tract infection , as evidenced by lower abdominal pain and CVA tenderness , despite the absence of typical urinary symptoms. This may be contributi ng to hyperglyce tatiana in the setting of recent steroid use, though the steroid s effects would be expected to diminish after three days. Plan:-Due to lack of available insulin and the patient being managed solely on oral hypoglycem ics, transfer to the Emergency Department for further evaluation and management . An expect was called at [facility] Primary care, consider__ _ Dispositio n:We discussed the situation and I recommende d referral to the emergency department . Health Concerns Section Related Observation LastModified by Organization Detai ls LastModified Time None Recorded Concern Status LastModified by Organization Details LastModified Time None Recorded Advance Directives Directive None Recorded Payers Insurance Date Sequence Insurance Name Policy Number Policy Alonso Covered Member ID Alonso Member ID Guarantor Name 06/18/2024 1 [facility] - DOS ON OR AFTER 2022 - DUAL ELIGIBLE - [employer] AND [employer] (MEDICARE REPLACEMENT/ADV ANTAGE - HMO) Lulu Mulligan [id number] Lulu Mulligan Notes Date Note Type Note Provider Name and Address Organization Details Recorded Time 06/18/2024 text/html ROS as noted in the HPI HPI: Member's calling with concern for member. Member with high blood sugars and c/o dry mouth. Per member recently on prednisone due to asthma flare up. glucometer only reading high. Member alert and oriented, but not feeling well. .................. .................. .................. .................. .................. .................. .................. ............... [facility] Nurse Triage Notes (Tanja Hernandez - RN): Chief Complaints: Diabetes-related PMH: Asthma, Diabetes Mellitus Type 2 PMH Reviewed at 06/18/2024 13:36 Allergies Reviewed at 06/18/2024 13:36 Comments: HPI reviewed, RN tried to reach out to member to further assess. Unable to get in touch with member. Sampling Theory Teacher Organization Information for Corey Servin Legal Name: [employer]. Address: [address] [place] [id number], Supervisor Clam Bed: Hugo Luna MD CLIA No.: [id number] Sampling Theory Teacher POC Test Results from [employer] Servin Blood Glucose Measurement (18:45:44) Blood Glucose: 547 mg/dL iSTAT Chem8+ (18:46:02) Na: 130 mEq/L K: 4.5 mEq/L Cl: 91 mEq/L iCa: 1.18 mmol/L TCO2: 24 mmol/L Glu: 562 mg/dL BUN: 20 mg/dL Crea: 1.0 mg/dL Hct: 46 % Hb: 15.6 g/dL A .................. .................. .................. .................. .................. .................. .................. ............... Sampling Theory Teacher Note From Corey Servin: [facility] makes pt contact. She walks in to [...] pain. Pt consents to evaluation and treatment. [facility] obtains pt consent and uploads. Vital signs [...] locked w/ a saline lock and secured. [facility] contacts [facility] and discusses the above. [facility] speaks w/ pt and advises the ED for insulin and fluids, since pt does not currently use insulin for controlling glucose. Pt is amendable and [facility] calls 911. Pt is transported to [facility] by [facility] w/ IV in place. [facility] is clear. Report completed by MARISA Servin [id number]. [facility] Lab Orders: glucose, fingerstick, blood: Performed urinalysis, dipstick: Not Performed Comment: Pt transported to ED. BMP, serum or plasma: Performed .................. .................. .................. .................. .................. .................. .................. ............... [facility] Consulted: Adam Rios .................. .................. .................. .................. .................. .................. .................. ............... Disposition: Vinicius RIOS MD [address] [facility],[address], [place], [address], ALYX CARRANZA 06/18/2024 22:04:42 OBGyn Episode No OBEpisode recorded.
--- OUTSIDE RECORDS SUMMARY | 2025-03-29 14:48 | XMS_ITS | Patient Health Record ---
Author Organization [facility] Address [address] [place] [address] Care Team Providers Care Claim Inspector Name Role Phone Lebron James Unavailable [phone] Reason For Referral No Information Plan Of Treatment No Information
[2025-03-29 14:52] LABS: Alanine Aminotransferase 71 U/L (0-31); Albumin Level 4.4 g/dL (3.5-5.0); Alkaline Phosphatase 79 U/L (39-117); Anion Gap 9 (12-20); Aspartate Amino Transferase 43 U/L (5-31); Blood Urea Nitrogen 10 mg/dL (9-16); Calcium 9.2 mg/dL (8.4-10.2); Carbon Dioxide 28 mmol/L (22-29); Chloride 107 mmol/L (96-108); Estimated Glomerular Filt Rate > 60; Potassium 4.2 mmol/L (3.3-5.1); Sodium 140 mmol/L (135-145); Total Protein 7.7 g/dL (6.5-8.0)
== END 2025-03-29 11:55 | disposition home or self-care (01) ==
LOC: HO.LAB 11:54
PROVIDERS: PCP Internal Medicine; Visit Provider Internal Medicine
DX: Z00.00 Encounter for general adult medical examination without abnormal findings (principal); I10 Essential (primary) hypertension; E11.9 Type 2 diabetes mellitus without complications; E78.2 Mixed hyperlipidemia
CPT/HCPCS: 36415; 80053; 83036